=== PATIENT | female | born 1975 | race Two or more races ===

== ENCOUNTER 2024-03-06 05:45 | Inpatient (IN) | payer OTHER ==
[~2024-03-06] VITALS: Ht 165.1 cm; Wt 73.6 kg
[2024-03-06] VITALS (10 sets, daily range): BP systolic 114–131; BP diastolic 47–66; PULSE 69–120; RESP 16–20; TEMP 97.8–98.2; O2SAT 97–100
--- NOTE | 2024-03-06 06:51 | ED.PDOC ---
History of present illness HPI Comments 48 y.o female with PMH of DM, presents to the ED for an evaluation of hyperglycemia. Patient reports she went to [place] 3-4 days ago, developed nausea, vomiting and lower extremity swelling in which she went to the ED there and was told her blood glucose levels and potassium levels were abnormal. Patient was suggested to come into the ED once she got back home, landed last night and came directly here. Patient has been checking her glucose levels and additionally retested here with levels reading in the 200's. Patient complains of increased thirst with dry mouth but states nausea and vomiting has subsided. No chest pain, fever, chills, sweats, or SOB reported. Patient is on Metformin and Insulin use and has been compliant with medication. 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 HAND History: No Pertinent TIRE TRIMMER HAND History Family History Family History: Reviewed,noncontributory to illness Social History Smoker: Non-Smoker Alcohol: Denies ETOH Use Drugs: Denies Drug Use Lives In: Home Constitutional: denies: chills, diaphoresis, fatigue, fever, malaise, sweats, weakness, others EENTM: denies: blurred vision, double vision, ear bleeding, ear discharge, ear drainage, ear pain, ear ringing, eye pain, eye redness, hearing loss, mouth pain, mouth swelling, nasal discharge, nose bleeding, nose congestion, nose pain, photophobia, tearing, throat pain, throat swelling, voice changes, others Respiratory: denies: cough, hemoptysis, orthopnea, SOB at rest, shortness of breath, SOB with excertion, stridor, wheezing, others Cardiovascular: denies: chest pain, dizzy spells, diaphoresis, Dyspnea on exertion, edema, irregular heart beat, left arm pain, lightheadedness, palpitations, PND, syncope, others Gastrointestinal: denies: abdomen distended, abdominal pain, blood streaked bowels, constipated, diarrhea, dysphagia, difficulty swallowing, hematemesis, melena, nausea, poor appetite, poor fluid intake, rectal bleeding, rectal pain, vomiting, others Genitourinary: denies: abnormal vagina bleeding, burning, dyspareunia, dysuria, flank pain, frequency, hematuria, incontinence, pain, , vagina discharge, urgency, others Neurological: denies: dizziness, fainting, headache, left sided numbness, left sided weakness, numbness, paresthesia, pre-existing deficit, right sided numbness, right sided weakness, seizure, speech problems, tingling, tremors, weakness, others Musculoskeletal: denies: back pain, gout, joint pain, joint swelling, muscle pain, muscle stiffness, neck pain, others Integumetry: denies: bruises, change in color, change in hair/nails, dryness, laceration, lesions, lumps, rash, wounds, others Allergic/Immunocompromised: denies: Difficulty Healing, Frequent Infections, Hives, Itching, others Hematologic/Lymphatic: denies: anemia, blood clots, easy bleeding, easy bruising, swollen glands, others Endocrine: reports: excessive thirst, others (dry mouth); denies: excessive hunger, excessive sweating, excessive urination, flushing, intolerance to cold, intolerance to heat, unexplained weight gain, unexplained weight loss Psychiatric: denies: anxiety, bipolar disorder, depression, hopeless, panic disorder, schizophrenia, sleepless, suicidal, others All Other Systems: Reviewed and Negative Physical Exam General Appearance: Moderate Distress HEENT: Normal ENT Inspection, Pharynx Normal, TMs Normal Neck: Full Range of Motion, Non-Tender, Normal, Normal Inspection Respiratory: Chest Non-Tender, Lungs Clear, No Accessory Muscle Use, No Respiratory Distress, Normal Breath Sounds Cardiovascular: No Edema, No JVD, No Murmur, No Gallop, Normal Peripheral Pulses, Regular Rate/Rhythm Breast Exam: Deferred Gastrointestinal: No Organomegaly, Non Tender, No Pulsatile Mass, Normal Bowel Sounds, Soft Genitalia: Deferred Pelvic: Deferred Rectal: Deferred Extremities: No calf tenderness, Normal capillary refill, Normal inspection, Normal range of motion, Non-tender, No pedal edema Musculoskeletal : Apperance: Normal Neurologic: Alert, 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 Was a procedure done?: No Differential Diagnosis (DM) Differential Diagnosis: Dehydration, Diabetic Coma, DKA, Electrolyte Abnormality, Hyperglycemia, Hyperosmolar State X-Ray, Labs, Meds, VS Vital Signs Date Time Temp Pulse Resp B/P (MAP) Pulse Ox O2 Delivery O2 Flow Rate FiO2 03/06/24 07:45 16 99 Room Air* 0 21 03/06/24 07:37 98.9 113 16 131/66 (87) 99 98.9 03/06/24 07:37 113 16 99 Room Air 03/06/24 05:57 98.1 120 18 127/74 (91) 99 Lab Test 03/06/24 07:35 03/06/24 07:20 Range/Units Urine Color Colorless Yellow Urine Clarity Clear Clear Urine pH 5.0 5.0-9.0 Urine Specific [place] 1.017 1.001-1.035 Urine Protein Negative Negative Urine Ketones 4+ H Negative Urine Blood 2+ H Negative /uL Urine Nitrite Negative Negative Urine Bilirubin Negative Negative Urine Urobilinogen Normal Negative mg/dL Urine Leukocyte Esterase Negative Negative /uL Urine RBC 1 0 - 4 /hpf Urine WBC 4 0 - 5 /hpf Urine Squamous Epithelial Cells Few <5 /hpf Urine Bacteria None seen None Seen /hpf Urine Mucus Few None Seen Urine Glucose 4+ H Normal mg/dL White Blood Count 7.2 4.4-10.8 10^3/uL Red Blood Count 4.38 4.0-5.20 10^6/uL Hemoglobin 13.1 12.2-16.2 g/dL Hematocrit 40.7 36.0-46.0 % Mean Corpuscular Volume 93.0 80.0-100.0 fL Mean Corpuscular Hemoglobin 29.8 28.0-32.0 pg Mean Corpuscular Hemoglobin Concent 32.1 32.0-36.0 g/dL Red Cell Distribution Width 16.1 H 11.8-14.3 % Platelet Count 220 140-450 10^3/uL Mean Platelet Volume 8.5 6.9-10.8 fL Neutrophils (%) (Auto) 72.2 37.0-80.0 % Lymphocytes (%) (Auto) 17.9 10.0-50.0 % Monocytes (%) (Auto) 8.3 0.0-12.0 % Eosinophils (%) (Auto) 1.0 0.0-7.0 % Basophils (%) (Auto) 0.6 0.0-2.0 % Neutrophils # (Auto) 5.2 1.6-8.6 10 ^3/uL Lymphocytes # (Auto) 1.3 0.4-5.4 10 ^3/uL Monocytes # (Auto) 0.6 0-1.3 10 ^3/uL Eosinophils # (Auto) 0.1 0-0.8 10 ^3/uL Basophils # (Auto) 0 0-0.2 10 ^3/uL Nucleated Red Blood Cells 0.1 % Sodium Level 137 136-145 mmol/L Potassium Level 4.8 3.5-5.1 mmol/L Chloride Level 104 98-107 mmol/L Carbon Dioxide Level 11 L 20-31 mmol/L Anion Gap 22 H 5-15 Blood Urea Nitrogen 14 9-23 mg/dL Creatinine 0.93 0.550-1.02 mg/dL Glomerular Filtration Rate Calc 75 >90 mL/min BUN/Creatinine Ratio 15.1 10.0-20.0 Serum Glucose 239 H 74-106 mg/dL Calcium Level 9.8 8.7-10.4 mg/dL Current Medications Medications (Trade) Dose Ordered Sig/Lacie Route Start Time Stop Time Status Last Admin Sodium Chloride 1,000 ml @ 1,000 mls/hr Q1H ONCE IV 03/06/24 07:15 03/06/24 08:14 DC 03/06/24 07:33 Ondansetron HCl (Zofran) 4 mg ONCE ONCE IV 03/06/24 07:15 03/06/24 07:16 DC 03/06/24 07:33 Patient alert. Anxious. Vitals stable. Answering all questions. Abdomen is soft nontender. Establish intravenous access. Was given fluids. Saturation pristine. Blood sugar causing her symptoms. Possible gastroenteritis while she was away. Recent travel to [place]. No shortness a breath. No leg swelling. No calf tenderness. Reviewed her history. Explained to the patient. Time of 1ST Reevaluation: 06:46 Reevaluation 1ST: Improved Patient Education/Counseling: Diagnosis, Treatment, Prognosis Family Education/Counseling: No Family Present Additional Information The following tests were ordered, and results were reviewed by me: LABS Additional Information was gathered from interviewing the following independent historians: None I reviewed and agreed with the following test results read by other provider: None I discussed treatment and results with medical personnel Departure 1 Departure Time of Disposition: 07:21 Impression: Primary Impression: Uncontrolled diabetes mellitus Qualified Codes: E13.65 - Other specified diabetes mellitus with hyperglycemia Disposition: ADMITTED INPATIENT Admit to: Med Surg Condition: Guarded Critical Care Note Critical Care Time?: Yes (45 min-critical care time only) Stability Stability form required: No I personally scribed for ISRAEL MADDEN MD ([email or web address]) on 03/06/24 at 06:51. Electronically submitted by Delisa Peña ([facility]). I personally scribed for ISRAEL MADDEN MD ([email or web address]) on 03/06/24 at 07:02. Electronically submitted by Delisa Peña ([facility]). ISRAEL MADDEN MD Mar 06, 2024 06:51
[2024-03-06] MEDS: SODIUM CHLORIDE 0.9% 1,000 ML IV ONE (07:33)
[2024-03-06] MEDS: ONDANSETRON HCL 4 MG/2 ML VIAL IV ONE (07:33)
[2024-03-06 07:41] LABS: Basophils # (auto) 0 10 ^3/uL (0-0.2); Basophils % (auto) 0.6 % (0.0-2.0); Eosinophils # (auto) 0.1 10 ^3/uL (0-0.8); Hematocrit 40.7 % (36.0-46.0); Hemoglobin 13.1 g/dL (12.2-16.2); Lymphocytes # (auto) 1.3 10 ^3/uL (0.4-5.4); Lymphocytes % (auto) 17.9 % (10.0-50.0); Mean Corpuscular Hemoglobin 29.8 pg (28.0-32.0); Mean Corpuscular Hgb Conc. 32.1 g/dL (32.0-36.0); Monocytes # (auto) 0.6 10 ^3/uL (0-1.3); Monocytes % (auto) 8.3 % (0.0-12.0); Neutrophils # (auto) 5.2 10 ^3/uL (1.6-8.6); Neutrophils % (auto) 72.2 % (37.0-80.0); Nucleated Red Blood Cells % 0.1 %; Platelet Count (auto) 220 10^3/uL (140-450); Red Blood Cells 4.38 10^6/uL (4.0-5.20); Red Cell Distribution Width 16.1 % (11.8-14.3); White Blood Cell 7.2 10^3/uL (4.4-10.8)
[2024-03-06 07:49] LABS: Chloride 104 mmol/L (98-107); Potassium 4.8 mmol/L (3.5-5.1); Sodium 137 mmol/L (136-145)
[2024-03-06 07:50] LABS: Anion Gap 22 (5-15)
[2024-03-06 07:51] LABS: Calcium 9.8 mg/dL (8.7-10.4)
[2024-03-06 07:56] LABS: BUN/Creatinine Ratio 15.1 (10.0-20.0); Blood Urea Nitrogen 14 mg/dL (9-23)
[2024-03-06 08:08] LABS: Urine Bacteria None Seen /hpf (None Seen)
[2024-03-06 08:15] LABS: Carbon Dioxide 11 mmol/L (20-31); Glucose 239 mg/dL (74-106)
[2024-03-06 08:22] LABS: Urine Blood 2+ /uL (Negative); Urine Clarity Clear (Clear); Urine Color Colorless (Yellow); Urine Mucus FEW (None Seen); Urine Protein, UAD Negative (Negative); Urine Specific Gravity 1.017 (1.001-1.035); Urine Squamous Epithelial Cell FEW /hpf (<5); Urine Urobilinogen Normal (Negative); Urine WBC 4 /hpf (0 - 5)
[2024-03-06] MEDS ORDERED: HYDROcodone-ACET 5/325MG TAB PO PRN (10:45)
[2024-03-06] MEDS ORDERED: ONDANSETRON HCL 4 MG/2 ML VIAL IV PRN (10:45)
[2024-03-06] MEDS ORDERED: ACETAMINOPHEN 325 MG TAB PO PRN (10:45)
[2024-03-06] MEDS ORDERED: DEXTROSE (50%) 50ML SYRG IV PRN (10:45)
[2024-03-06] MEDS ORDERED: ROSU10TA64 PO (11:07)
[2024-03-06] MEDS ORDERED: FERR325T20 PO (11:07)
--- NOTE | 2024-03-06 11:11 | DVHHP2 ---
History of Present Illness Reason for Visit: Elevated blood sugar, nausea, vomiting, increased thirst, dry mouth, s History of Present Illness Cristal Ramirez is a 48-year-old female with past medical history of diabetes and asthma who presents to the ED for increased blood sugar, increased thirst, dry mouth, nausea, vomiting, and shortness of breath. Patient states that she was in [place] for 8 days and just got back last night. She reported that she was in the hospital there for 3 days and treated for her hyperglycemia. Hospital's name is [facility]. Patient does not know exactly what medications were given to her other than insulin. Patient has a CGM and when she just checked it her blood sugar shows 242. Patient reports that she is here for evaluation. She also reports that the nausea has not gotten better. She denies any fevers, chills, chest pain, abdominal pain, diarrhea, lightheadedness, and dizziness. Patient also reports that she just finished her menses cycle. Past 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: Family History: None Smoke: No ALCOHOL: none Drugs: None Lives: with Family Domestic Violence: Neg Review of Systems Constitutional: No: Fever, Chills, Sweats, Weakness, Malaise, Other Eyes: No: Pain, Vision change, Conjunctivae inflammation, Eyelid inflammation, Other, Redness ENT: Other (Increased thirst and dry mouth); No: Ear pain, Ear discharge, Nose pain, Nose discharge, Nose congestion, Mouth pain, Mouth swelling, Throat pain, Throat swelling Respiratory: Shortness of breath; No: Cough, Dry, SOB with excertion, Wheezing, Hemoptysis, Pleuritic Pain, Sputum, Wheezing, Other Cardiovascular: No: Chest Pain, Palpitations, Orthopnea, Paroxysmal Noc. Dyspnea, Edema, Lt Headedness, Other Gastrointestinal: Nausea, Vomiting; No: Abdominal Pain, Diarrhea, Constipation, Melena, Hematochezia, Other Genitourinary: No Dysuria, No Frequency, No Incontinence, No Hematuria, No Retention, No Other Musculoskeletal: No: other, neck pain, shoulder pain, arm pain, back pain, hand pain, leg pain, foot pain Skin: No: Rash, Lesions, Jaundice, Bruising, Other Neurological: No: Weakness, Numbness, Incoordination, Change in speech, Confusion, Seizures, Other Allergies: Coded Allergies: NO KNOWN ALLERGIES (Unverified , 03/06/24) Medications Current Medications Medications Dose Ordered Sig/Lacie Route Start Time Stop Time Status Last Admin Dose Admin Diagnostic Test (Pha) 1 strip ACHS 03/06/24 11:30 UNV Insulin Human Regular ACHS SC 03/06/24 11:30 UNV Dextrose 50 ml UD PRN IV 03/06/24 10:45 UNV Acetaminophen/ Hydrocodone Bitart 1 tab Q4HP PRN PO 03/06/24 10:45 UNV Ondansetron HCl 4 mg Q4HP PRN IV 03/06/24 10:45 UNV Acetaminophen 650 mg Q6HP PRN PO 03/06/24 10:45 UNV Exam Vital Signs Vital Signs Date Time Temp Pulse Resp B/P (MAP) Pulse Ox O2 Delivery O2 Flow Rate FiO2 03/06/24 07:45 16 99 Room Air* 0 21 03/06/24 07:37 98.9 113 131/66 (87) 98.9 General Appearance: Alert, Oriented X3, Cooperative, No acute distress HEENT: Atraumatic, PERRLA, EOMI, Mucous membr. moist/pink Respiratory: Clear to auscultation, Normal air movement Cardiovascular: Normal S1, Normal S2, No murmurs Abdominal: Normal bowel sounds, Soft, No tenderness, No hepatospenomegaly, No masses Extremities: No clubbing, No cyanosis, No edema, Normal pulses, No tenderness/swelling Skin: No rashes, No breakdown, No significant lesion Neuro: Normal gait, Normal speech, Strength at 5/5 X4 ext, Normal tone, Sensation intact Psych/Mental Status: Mental status NL, Mood NL Labs/Xrays Labs Test 03/06/24 07:35 03/06/24 07:20 Range/Units Urine Color Colorless Yellow Urine Clarity Clear Clear Urine pH 5.0 5.0-9.0 Urine Specific [place] 1.017 1.001-1.035 Urine Protein Negative Negative Urine Ketones 4+ H Negative Urine Blood 2+ H Negative /uL Urine Nitrite Negative Negative Urine Bilirubin Negative Negative Urine Urobilinogen Normal Negative mg/dL Urine Leukocyte Esterase Negative Negative /uL Urine RBC 1 0 - 4 /hpf Urine WBC 4 0 - 5 /hpf Urine Squamous Epithelial Cells Few <5 /hpf Urine Bacteria None seen None Seen /hpf Urine Mucus Few None Seen Urine Glucose 4+ H Normal mg/dL White Blood Count 7.2 4.4-10.8 10^3/uL Red Blood Count 4.38 4.0-5.20 10^6/uL Hemoglobin 13.1 12.2-16.2 g/dL Hematocrit 40.7 36.0-46.0 % Mean Corpuscular Volume 93.0 80.0-100.0 fL Mean Corpuscular Hemoglobin 29.8 28.0-32.0 pg Mean Corpuscular Hemoglobin Concent 32.1 32.0-36.0 g/dL Red Cell Distribution Width 16.1 H 11.8-14.3 % Platelet Count 220 140-450 10^3/uL Mean Platelet Volume 8.5 6.9-10.8 fL Neutrophils (%) (Auto) 72.2 37.0-80.0 % Lymphocytes (%) (Auto) 17.9 10.0-50.0 % Monocytes (%) (Auto) 8.3 0.0-12.0 % Eosinophils (%) (Auto) 1.0 0.0-7.0 % Basophils (%) (Auto) 0.6 0.0-2.0 % Neutrophils # (Auto) 5.2 1.6-8.6 10 ^3/uL Lymphocytes # (Auto) 1.3 0.4-5.4 10 ^3/uL Monocytes # (Auto) 0.6 0-1.3 10 ^3/uL Eosinophils # (Auto) 0.1 0-0.8 10 ^3/uL Basophils # (Auto) 0 0-0.2 10 ^3/uL Nucleated Red Blood Cells 0.1 % Sodium Level 137 136-145 mmol/L Potassium Level 4.8 3.5-5.1 mmol/L Chloride Level 104 98-107 mmol/L Carbon Dioxide Level 11 L 20-31 mmol/L Anion Gap 22 H 5-15 Blood Urea Nitrogen 14 9-23 mg/dL Creatinine 0.93 0.550-1.02 mg/dL Glomerular Filtration Rate Calc 75 >90 mL/min BUN/Creatinine Ratio 15.1 10.0-20.0 Serum Glucose 239 H 74-106 mg/dL Calcium Level 9.8 8.7-10.4 mg/dL Assessment/Plan Assessment/Plan Assessment/Plan: Acute hyperglycemia Ketonuria Glucosuria UA Antiemetics NS given in ER Anion gap 22 Hemoglobin A1c ISS and Accu-Cheks Chest x-ray EKG Labs A.m. labs Chronic asthma Respiratory treatments p.r.n. DVT/PPX diet HL DVT prophylaxis not indicated patient ambulating PUD prophylaxis not indicated no history of GERD or GI bleed Home medications reconciled Discussed plan of care with patient and nurse Admit to [facility] surge Plan discussed with: Patient My Orders Orders - MARLIN HENAO Procedure Category Date Status Time Hemoglobin A1c LAB 03/06/24 Logged 10:33 Glucose Blood PHA 03/06/24 Logged (Accu-Chek Comfort 11:30 Insulin R (Human) PHA 03/06/24 Logged (Insulin R) 11:30 Dextrose 50% Syringe PHA 03/06/24 Logged 10:45 Admit ADMIT 03/06/24 Transmitted 10:33 Allergies URBAN 03/06/24 In Process 10:33 Code Status CODE 03/06/24 Transmitted 10:33 Hydrocodone-Acet PHA 03/06/24 Logged 5/325mg Tab ([place] 10:45 Ondansetron Hcl PHA 03/06/24 Logged (Zofran) 10:45 Complete Blood Count LAB 03/07/24 Verified 04:00 Comprehensive LAB 03/07/24 Verified Metabolic Panel 04:00 Cardiac DIET 03/06/24 Transmitted Diet-2gna,Lofat,Lochol Lunch Acetaminophen Tablet PHA 03/06/24 Logged (Tylenol Tablet) 10:45 Date of Service: Mar 06, 2024 Billing Provider: MARLIN HENAO Common Visit Codes: [id number] INP/OBS CARE (HIGH) MARLIN HENAO Mar 06, 2024 11:11
--- NOTE | 2024-03-06 11:30 | DVH ---
CHEST RADIOGRAPH Indication: sob Technique: Single frontal view of the chest was obtained COMPARISON: None FINDINGS: Lines and Tubes: None Lungs: Clear Pleura: No effusion. No pneumothorax. Cardiomediastinal contours: Unremarkable Bones: Unremarkable IMPRESSION: 1. No acute disease.
[2024-03-06] MEDS: ACCU-CHEK COMFORT CURVE STRIP VI SCH (12:02)
[2024-03-06] MEDS: InsuLIN REG 1unit/0.01ml Soln (100units/ml) SC SCH (12:10)
--- NOTE | 2024-03-06 12:44 | ECG ---
[facility] Test Date: 2024-03-06 Test Time: 11:32:03 Pat Name: BERHANE BARRETT Department: ER Room: [address] [place] [address] A Gender: F Program Associate: ANDREA : 1975 Requested By: MARLIN HENAO Order Number: [id number] Reading MD: Measurements Intervals [place] Rate: 122 P: 75 NC: 153 QRS: 87 QRSD: 91 T: -19 QT: 318 QTc: 453 Interpretive Statements Sinus tachycardia Borderline T abnormalities, inferior leads Please click the below link to view image of tracing.
[2024-03-06 16:02] LABS: COVID19 ANTIGEN SOFIA FIA NEGATIVE (NEGATIVE); Rapid Influenza A Negative (Negative); Rapid Influenza B Negative (Negative)
[2024-03-06] MEDS: ALBUTEROL SULF 2.5 MG/0.5ML(0.5%) NEB SOLN NEB PRN (21:27)
[2024-03-06] MEDS: IPRATROPIUM BROM 0.5 MG/2.5ML INH SOL NEB PRN (21:27)
[2024-03-07] VITALS (11 sets, daily range): BP systolic 110–140; BP diastolic 61–82; PULSE 68–138; RESP 14–27; TEMP 97.6–98.9; O2SAT 97–100
[2024-03-07 05:46] LABS: Basophils # (auto) 0 10 ^3/uL (0-0.2); Basophils % (auto) 0.5 % (0.0-2.0); Eosinophils # (auto) 0 10 ^3/uL (0-0.8); Eosinophils % (auto) 0.4 % (0.0-7.0); Hemoglobin 12.1 g/dL (12.2-16.2); Lymphocytes # (auto) 1.2 10 ^3/uL (0.4-5.4); Lymphocytes % (auto) 14.6 % (10.0-50.0); Mean Corpuscular Hgb Conc. 32.6 g/dL (32.0-36.0); Neutrophils # (auto) 5.9 10 ^3/uL (1.6-8.6); Neutrophils % (auto) 72.5 % (37.0-80.0); Nucleated Red Blood Cells % 0.1 %; Platelet Count (auto) 212 10^3/uL (140-450); Red Blood Cells 4.02 10^6/uL (4.0-5.20); Red Cell Distribution Width 16.2 % (11.8-14.3); White Blood Cell 8.2 10^3/uL (4.4-10.8)
[2024-03-07 06:11] LABS: Alanine Aminotransferase 24 U/L (7-40); Alkaline Phosphatase 103 U/L (46-116); Anion Gap 19.00001 (5-15); Aspartate Aminotransferase 19 U/L (13-40); BUN/Creatinine Ratio 11.4 (10.0-20.0); Blood Urea Nitrogen 14 mg/dL (9-23); Calcium 9.3 mg/dL (8.7-10.4); Chloride 107 mmol/L (98-107); Potassium 4.5 mmol/L (3.5-5.1); Sodium 136 mmol/L (136-145)
[2024-03-07 06:12] LABS: Bilirubin, Total 0.4 mg/dL (0.2-1.0); Total Protein 6.8 g/dL (5.7-8.2)
[2024-03-07 06:31] LABS: Glucose 233 mg/dL (74-106)
[2024-03-07 06:33] LABS: Carbon Dioxide < 10 mmol/L (20-31)
[2024-03-07] MEDS ORDERED: DEXTROSE (50%) 50ML SYRG IV PRN ×2 (13:45→15:30)
--- NOTE | 2024-03-07 13:51 | DVHPN2 ---
Subjective 03/07-patient feeling back at baseline but labs show severe acidosis. We will continue to adjust insulin to optimize glucose and workup acidosis. Reviewed: H&P Changes from previous H/P or p: No Changes General: Per HPI Objective Vitals Vital Signs Date Time Temp Pulse Resp B/P (MAP) Pulse Ox O2 Delivery O2 Flow Rate FiO2 03/07/24 09:00 98.1 115 18 139/77 (97) 99 98.1 03/07/24 08:00 Room Air* 0 21 Intake/Output Intake and Output 03/07/24 07:00 Intake Total 1480 ml Output Total 4 ml Balance 1476 ml Intake Oral 480 ml IV Total 1000 ml Output Urine Total 4 ml Exam GEN: Healthy appearing, well-developed, NAD. HEENT: NC/AT; MMM. CV: RRR, no m/r/g. LUNGS: CTAB, no w/r/c. ABD: Soft, NT/ND, NBS, no masses or organomegaly. EXT: skin Warm, well perfused. no rashes. Trace pitting edema right more than left NEURO: Ambulating with no limitations. No focal deficits. Medications Current Medications Medications Dose Ordered Sig/Lacie Route Start Time Stop Time Status Last Admin Dose Admin Diagnostic Test (Pha) 1 strip ACHS 03/06/24 11:30 03/07/24 11:32 1 STRIP Insulin Human Regular ACHS SC 03/06/24 11:30 03/07/24 11:32 4 UNITS Dextrose 50 ml UD PRN IV 03/06/24 10:45 Acetaminophen/ Hydrocodone Bitart 1 tab Q4HP PRN PO 03/06/24 10:45 Ondansetron HCl 4 mg Q4HP PRN IV 03/06/24 10:45 Acetaminophen 650 mg Q6HP PRN PO 03/06/24 10:45 Albuterol 2.5 mg Q4HPRN PRN NEB 03/06/24 11:15 03/06/24 21:27 2.5 MG Ipratropium [place] 0.5 mg Q4HPRN PRN NEB 03/06/24 11:15 03/06/24 21:27 0.5 MG Diagnostic Test (Pha) 1 strip ACHS 03/07/24 17:00 UNV Insulin Human Regular HS SC 03/07/24 22:00 UNV Insulin Human Regular AC SC 03/07/24 17:00 UNV Dextrose 50 ml UD PRN IV 03/07/24 13:45 UNV Laboratory Results Laboratory Tests 03/07/24 04:32 Chemistry Test 03/07/24 04:32 Albumin 4.0 g/dL (3.2-4.8) Calcium Level 9.3 mg/dL (8.7-10.4) Total Protein 6.8 g/dL (5.7-8.2) LFT Test 03/07/24 04:32 Alanine Aminotransferase (ALT) 24 U/L (7-40) Alkaline Phosphatase 103 U/L (46-116) Aspartate Amino Transferase (AST) 19 U/L (13-40) Total Bilirubin 0.4 mg/dL (0.2-1.0) Urinalysis Test 03/06/24 07:35 Urine Color Colorless (Yellow) Urine Clarity Clear (Clear) Urine pH 5.0 (5.0-9.0) Urine Specific [place] 1.017 (1.001-1.035) Urine Protein Negative (Negative) Urine Ketones 4+ (Negative) H Urine Blood 2+ /uL (Negative) H Urine Nitrite Negative (Negative) Urine Bilirubin Negative (Negative) Urine Urobilinogen Normal mg/dL (Negative) Urine Leukocyte Esterase Negative /uL (Negative) Urine RBC 1 /hpf (0 - 4) Urine WBC 4 /hpf (0 - 5) Urine Squamous Epithelial Cells Few /hpf (<5) Urine Bacteria None seen /hpf (None Seen) Urine Mucus Few (None Seen) Urine Glucose 4+ mg/dL (Normal) H Labs and/or images reviewed: Labs reviewed by me, Image(s) reviewed by me Assessment/Plan Assessment/Plan 03/07-patient feeling back at baseline but labs show severe acidosis. We will continue to adjust insulin to optimize glucose and workup acidosis. Euglycemic DKA Diabetes with Hyperglycemia, admit dx wrong Acidosis severe Anion gap metabolic acidosis --patient recently returning from [place], unclear of dietary compliance. Was admitted to [facility] for DKA. Discharge recently and returned to [facility]. - lactic acid less than 2, beta hydroxy very high - this is euglycemic DKA (as patient is on farxiga SGLT2i) -dka protocol. - ivf per dka protocol. - NPO -patient on home meds with metformin, pioglitazone, Farxiga - pioglitazone has too many side effects we will have him DC at discharge and PCP follow up. still have to stop farxiga too as patient now had euglycemic dka. Diet npo DVT prophylaxis patient ambulating GI prophylaxis patient tolerating diet Med surge Full code critical care time 35min Plan discussed with: Patient My Orders Orders - JOLLY SOUZA MD Procedure Category Date Status Time Beta-Hydroxybutyrate LAB 03/07/24 In Process 10:54 Cardiac DIET 03/07/24 Transmitted Diet-2gna,Lofat,Lochol Dinner Glucose Blood PHA 03/07/24 Logged (Accu-Chek Comfort 17:00 Insulin R (Human) PHA 03/07/24 Logged (Insulin R) 22:00 Insulin R (Human) PHA 03/07/24 Logged (Insulin R) 17:00 Dextrose 50% Syringe PHA 03/07/24 Logged 13:45 Lactated Ringer's PHA 03/07/24 Logged 13:45 Basic Metabolic Panel LAB 03/07/24 Logged 13:42 Date of Service: Mar 07, 2024 Billing Provider: JOLLY SOUZA MD Common Visit Codes: [id number] CARE-EACH +30MIN JOLLY SOUZA MD Mar 07, 2024 13:51
[2024-03-07 14:29] LABS: Potassium 4.4 mmol/L (3.5-5.1); Sodium 136 mmol/L (136-145)
[2024-03-07 14:30] LABS: Anion Gap 17.00001 (5-15); Calcium 9.3 mg/dL (8.7-10.4)
[2024-03-07 14:35] LABS: BUN/Creatinine Ratio 9.4 (10.0-20.0); Blood Urea Nitrogen 12 mg/dL (9-23)
[2024-03-07 14:36] LABS: Carbon Dioxide < 10 mmol/L (20-31); Chloride 109 mmol/L (98-107); Glucose 221 mg/dL (74-106)
[2024-03-07 15:37] LABS: Base Excess -15.6 mmol/L (-2.0-3.0)
[2024-03-07] MEDS: LACTATED RINGER'S 1,000 ML IV ONE ×2 (15:45→18:30)
[2024-03-07 16:22] LABS: Magnesium 2.2 mg/dL (1.6-2.6)
[2024-03-07 16:26] LABS: Phosphorus 1.7 mg/dL (2.4-5.1)
[2024-03-07] MEDS: SODIUM CHLORIDE 0.9% 1,000 ML IV SCH ×2 (16:51→19:30)
[2024-03-07] MEDS: ACCU-CHEK COMFORT CURVE STRIP VI SCH ×2 (16:54→17:00)
[2024-03-07] MEDS: InsuLIN REG 1unit/0.01ml Soln (100units/ml) SC SCH ×2 (17:00→22:00)
[2024-03-07] MEDS: D5W/SOD CHL 0.45% 1,000 ML IV SCH (17:27)
[2024-03-07] MEDS: INSULIN DRIP 100 UNIT/100ML 100 ML IV SCH (17:27)
[2024-03-07 20:18] LABS: Alanine Aminotransferase 20 U/L (7-40); Albumin 3.8 g/dL (3.2-4.8); Alkaline Phosphatase 92 U/L (46-116); Anion Gap 17.00001 (5-15); Aspartate Aminotransferase 14 U/L (13-40); BUN/Creatinine Ratio 10.3 (10.0-20.0); Blood Urea Nitrogen 12 mg/dL (9-23); Calcium 8.8 mg/dL (8.7-10.4); Potassium 3.6 mmol/L (3.5-5.1); Sodium 138 mmol/L (136-145); Total Protein 6.6 g/dL (5.7-8.2)
[2024-03-07 20:22] LABS: Bilirubin, Total 0.2 mg/dL (0.2-1.0); Chloride 111 mmol/L (98-107); Glucose 211 mg/dL (74-106)
[2024-03-07 20:23] LABS: Carbon Dioxide < 10 mmol/L (20-31)
[2024-03-07] MEDS ORDERED: SODIUM CHLORIDE 0.9% 1,000 ML IV SCH (21:30)
[2024-03-07 23:03] LABS: Alanine Aminotransferase 18 U/L (7-40); Albumin 3.5 g/dL (3.2-4.8); Alkaline Phosphatase 82 U/L (46-116); Anion Gap 10 (5-15); Bilirubin, Total 0.4 mg/dL (0.2-1.0); Sodium 139 mmol/L (136-145); Total Protein 5.9 g/dL (5.7-8.2)
[2024-03-07 23:05] LABS: Aspartate Aminotransferase 12 U/L (13-40); Calcium 8.1 mg/dL (8.7-10.4); Carbon Dioxide 14 mmol/L (20-31); Chloride 115 mmol/L (98-107); Glucose 193 mg/dL (74-106); Potassium 3.3 mmol/L (3.5-5.1)
[2024-03-07 23:16] LABS: BUN/Creatinine Ratio 9.3 (10.0-20.0); Blood Urea Nitrogen 9 mg/dL (9-23)
[2024-03-08] VITALS (19 sets, daily range): BP systolic 111–143; BP diastolic 59–76; PULSE 26–113; RESP 16–18; TEMP 98.2–98.9; O2SAT 98–100
[2024-03-08] MEDS ORDERED: DEXTROSE (50%) 50ML SYRG IV PRN (00:45)
[2024-03-08 03:57] LABS: Alanine Aminotransferase 18 U/L (7-40); Albumin 3.5 g/dL (3.2-4.8); Alkaline Phosphatase 86 U/L (46-116); Anion Gap 17.00001 (5-15); Aspartate Aminotransferase 13 U/L (13-40); BUN/Creatinine Ratio 8.7 (10.0-20.0); Bilirubin, Total 0.3 mg/dL (0.2-1.0); Potassium 3.7 mmol/L (3.5-5.1); Sodium 137 mmol/L (136-145)
[2024-03-08 03:58] LABS: Total Protein 6.1 g/dL (5.7-8.2)
[2024-03-08] MEDS: ACCU-CHEK COMFORT CURVE STRIP VI SCH ×3 (04:07→22:01)
[2024-03-08] MEDS: InsuLIN REG 1unit/0.01ml Soln (100units/ml) SC SCH ×3 (04:07→22:03)
[2024-03-08 04:11] LABS: Basophils # (auto) 0 10 ^3/uL (0-0.2); Basophils % (auto) 0.4 % (0.0-2.0); Eosinophils # (auto) 0.3 10 ^3/uL (0-0.8); Eosinophils % (auto) 3.2 % (0.0-7.0); Hematocrit 33.8 % (36.0-46.0); Lymphocytes # (auto) 0.7 10 ^3/uL (0.4-5.4); Mean Corpuscular Hemoglobin 29.9 pg (28.0-32.0); Mean Corpuscular Hgb Conc. 32.5 g/dL (32.0-36.0); Monocytes % (auto) 12.3 % (0.0-12.0); Neutrophils # (auto) 6.2 10 ^3/uL (1.6-8.6); Neutrophils % (auto) 75.1 % (37.0-80.0); Platelet Count (auto) 203 10^3/uL (140-450); Red Blood Cells 3.68 10^6/uL (4.0-5.20); White Blood Cell 8.3 10^3/uL (4.4-10.8)
[2024-03-08 04:38] LABS: Blood Urea Nitrogen 9 mg/dL (9-23); Calcium 8.4 mg/dL (8.7-10.4); Carbon Dioxide < 10 mmol/L (20-31); Chloride 110 mmol/L (98-107); Glucose 266 mg/dL (74-106)
[2024-03-08] MEDS: SODIUM CHLORIDE 0.9% 1,000 ML IV ONE (05:37)
[2024-03-08 10:12] LABS: Potassium 3.6 mmol/L (3.5-5.1); Sodium 138 mmol/L (136-145)
[2024-03-08 10:13] LABS: Anion Gap 13 (5-15)
[2024-03-08 10:18] LABS: BUN/Creatinine Ratio 8.8 (10.0-20.0)
[2024-03-08 10:35] LABS: Blood Urea Nitrogen 8 mg/dL (9-23); Calcium 8.5 mg/dL (8.7-10.4); Carbon Dioxide 11 mmol/L (20-31); Chloride 114 mmol/L (98-107); Glucose 161 mg/dL (74-106)
[2024-03-08] MEDS: LACTATED RINGER'S 1,000 ML IV SCH (12:49)
[2024-03-08] MEDS: INSULIN LANTUS (GLARGINE) 1 /0.01ml (100units/ml) SC ONE (13:00)
[2024-03-08 15:35] LABS: Sodium 139 mmol/L (136-145)
[2024-03-08 15:36] LABS: Anion Gap 14 (5-15)
[2024-03-08 15:41] LABS: BUN/Creatinine Ratio 9.6 (10.0-20.0); Blood Urea Nitrogen 9 mg/dL (9-23)
[2024-03-08 15:49] LABS: Calcium 8.4 mg/dL (8.7-10.4); Carbon Dioxide 14 mmol/L (20-31); Chloride 111 mmol/L (98-107); Glucose 208 mg/dL (74-106); Potassium 3.4 mmol/L (3.5-5.1)
--- NOTE | 2024-03-08 21:57 | DVHPN2 ---
Subjective - 03/08- patient off of DKA protocol last night around 1-2am. Diet started this morning. This a.m. bicarb still low, although gap is closed. Given fluids and on repeat BNP improving. Continue downgrade to tele. Patient feeling improved. Tolerating diet. Prandial and basal insulin started, we will continue to titrate we will plan to discharge with insulin tomorrow. - 03/07-patient feeling back at baseline but labs show severe acidosis. We will continue to adjust insulin to optimize glucose and workup acidosis. Reviewed: H&P Changes from previous H/P or p: No Changes General: Per HPI Objective Vitals Vital Signs Date Time Temp Pulse Resp B/P (MAP) Pulse Ox O2 Delivery O2 Flow Rate FiO2 03/08/24 21:00 98.3 88 18 143/73 (96) 98 98.3 03/08/24 11:08 Room Air 03/08/24 11:08 0 21 Intake/Output Intake and Output 03/08/24 07:00 Intake Total 4202 ml Output Total 5 ml Balance 4197 ml Intake Oral 640 ml IV Total 3562 ml Output Urine Total 5 ml Exam GEN: Healthy appearing, well-developed, NAD. HEENT: NC/AT; MMM. CV: RRR, no m/r/g. LUNGS: CTAB, no w/r/c. ABD: Soft, NT/ND, NBS, no masses or organomegaly. EXT: skin Warm, well perfused. no rashes. Trace pitting edema right more than left NEURO: Ambulating with no limitations. No focal deficits. Medications Current Medications Medications Dose Ordered Sig/Lacie Route Start Time Stop Time Status Last Admin Dose Admin Acetaminophen/ Hydrocodone Bitart 1 tab Q4HP PRN PO 03/06/24 10:45 Ondansetron HCl 4 mg Q4HP PRN IV 03/06/24 10:45 Acetaminophen 650 mg Q6HP PRN PO 03/06/24 10:45 Dextrose 50 ml UD PRN IV 03/08/24 00:45 Insulin Glargine 40 units QAM SC 03/09/24 07:00 Diagnostic Test (Pha) 1 strip ACHS 03/08/24 22:00 Insulin Human Regular ACHS SC 03/08/24 22:00 Laboratory Results Laboratory Tests 03/08/24 02:53 03/08/24 15:10 Chemistry Test 03/07/24 22:36 03/08/24 02:53 03/08/24 09:30 03/08/24 15:10 Albumin 3.5 g/dL (3.2-4.8) 3.5 g/dL (3.2-4.8) Calcium Level 8.1 mg/dL (8.7-10.4) L 8.4 mg/dL (8.7-10.4) L 8.5 mg/dL (8.7-10.4) L 8.4 mg/dL (8.7-10.4) L Total Protein 5.9 g/dL (5.7-8.2) 6.1 g/dL (5.7-8.2) LFT Test 03/07/24 22:36 03/08/24 02:53 Alanine Aminotransferase (ALT) 18 U/L (7-40) 18 U/L (7-40) Alkaline Phosphatase 82 U/L (46-116) 86 U/L (46-116) Aspartate Amino Transferase (AST) 12 U/L (13-40) L 13 U/L (13-40) Total Bilirubin 0.4 mg/dL (0.2-1.0) 0.3 mg/dL (0.2-1.0) Urinalysis Test 03/06/24 07:35 Urine Color Colorless (Yellow) Urine Clarity Clear (Clear) Urine pH 5.0 (5.0-9.0) Urine Specific [place] 1.017 (1.001-1.035) Urine Protein Negative (Negative) Urine Ketones 4+ (Negative) H Urine Blood 2+ /uL (Negative) H Urine Nitrite Negative (Negative) Urine Bilirubin Negative (Negative) Urine Urobilinogen Normal mg/dL (Negative) Urine Leukocyte Esterase Negative /uL (Negative) Urine RBC 1 /hpf (0 - 4) Urine WBC 4 /hpf (0 - 5) Urine Squamous Epithelial Cells Few /hpf (<5) Urine Bacteria None seen /hpf (None Seen) Urine Mucus Few (None Seen) Urine Glucose 4+ mg/dL (Normal) H Labs and/or images reviewed: Labs reviewed by me, Image(s) reviewed by me Assessment/Plan Assessment/Plan - 03/08 - patient off of DKA protocol last night around 1-2am. Diet started this morning. This a.m. bicarb still low, although gap is closed. Given fluids and on repeat BMP improving. Continue downgrade to tele. Patient feeling improved. Tolerating diet. Prandial and basal insulin started, we will continue to titrate we will plan to discharge with insulin tomorrow. Euglycemic DKA Diabetes with Hyperglycemia, admit dx wrong Acidosis severe Anion gap metabolic acidosis - patient recently returning from [place], unclear of dietary compliance. Was admitted to [facility] for DKA. Discharge recently and returned to [facility]. -on admit noting,: lactic acid less than 2, beta hydroxy very high, ABG with 7.28/19.6/103 on room air., - flu/COVID negative - UA with SG 1.017, ketones 4+, glucose 4+, no signs for infection. - this is euglycemic DKA (as patient is on farxiga SGLT2i) - 03/08 - of DKA protocol, gap closed bicarb improving with more fluids. -status post dka protocol. - continue basal bolus insulin with sliding scale - diabetic diet -patient on home meds with metformin, pioglitazone, Farxiga - pioglitazone has too many side effects we will have him DC at discharge and PCP follow up. still have to stop farxiga too as patient now had euglycemic dka. Diet carb consistent DVT prophylaxis Lovenox GI prophylaxis - Protonix IV daily Med surge Full code Plan discussed with: Patient My Orders Orders - JOLLY SOUZA MD Procedure Category Date Status Time Insulin Lantus PHA 03/09/24 In Process (Glargine) (Lantus) 07:00 Glucose Blood PHA 03/08/24 In Process (Accu-Chek Comfort 22:00 Insulin R (Human) PHA 03/08/24 In Process (Insulin R) 22:00 Date of Service: Mar 08, 2024 Billing Provider: JOLLY SOUZA MD Common Visit Codes: [id number] INP/OBS CARE(HIGH) JOLLY SOUZA MD Mar 08, 2024 21:57
[2024-03-09 01:00] VITALS: BP 129/78; PULSE 86; RESP 18; TEMP 98.2; O2SAT 98
[2024-03-09 05:00] VITALS: BP 122/70; PULSE 90; RESP 17; TEMP 98.2; O2SAT 98
[2024-03-09] MEDS: INSULIN LANTUS (GLARGINE) 1 /0.01ml (100units/ml) SC SCH (06:29)
[2024-03-09 07:34] LABS: Basophils # (auto) 0 10 ^3/uL (0-0.2); Basophils % (auto) 0.7 % (0.0-2.0); Eosinophils # (auto) 0.6 10 ^3/uL (0-0.8); Eosinophils % (auto) 9.6 % (0.0-7.0); Hematocrit 33.4 % (36.0-46.0); Hemoglobin 11.4 g/dL (12.2-16.2); Lymphocytes # (auto) 0.9 10 ^3/uL (0.4-5.4); Lymphocytes % (auto) 14.3 % (10.0-50.0); Mean Corpuscular Hemoglobin 29.6 pg (28.0-32.0); Mean Corpuscular Hgb Conc. 34.2 g/dL (32.0-36.0); Mean Corpuscular Volume 86.6 fL (80.0-100.0); Monocytes # (auto) 0.9 10 ^3/uL (0-1.3); Monocytes % (auto) 13.2 % (0.0-12.0); Neutrophils # (auto) 4.1 10 ^3/uL (1.6-8.6); Neutrophils % (auto) 62.2 % (37.0-80.0); Nucleated Red Blood Cells % 0.1 %; Platelet Count (auto) 208 10^3/uL (140-450); Red Blood Cells 3.86 10^6/uL (4.0-5.20); Red Cell Distribution Width 14.7 % (11.8-14.3); White Blood Cell 6.6 10^3/uL (4.4-10.8)
[2024-03-09 08:00] VITALS: PULSE 99; RESP 17; O2SAT 99
[2024-03-09 08:13] LABS: Alanine Aminotransferase 13 U/L (7-40); Albumin 3.5 g/dL (3.2-4.8); Alkaline Phosphatase 84 U/L (46-116); Anion Gap 11 (5-15); Aspartate Aminotransferase 14 U/L (13-40); BUN/Creatinine Ratio 12.3 (10.0-20.0); Bilirubin, Total 0.4 mg/dL (0.2-1.0); Calcium 8.7 mg/dL (8.7-10.4); Carbon Dioxide 22 mmol/L (20-31); Chloride 107 mmol/L (98-107); Glucose 97 mg/dL (74-106); Sodium 140 mmol/L (136-145)
[2024-03-09 08:14] LABS: Total Protein 6.1 g/dL (5.7-8.2)
[2024-03-09 08:22] LABS: Blood Urea Nitrogen 7 mg/dL (9-23); Potassium 2.6 mmol/L (3.5-5.1)
[2024-03-09 08:51] VITALS: BP 122/75; PULSE 85; RESP 18; TEMP 98.2; O2SAT 97
[2024-03-09 13:00] VITALS: BP 129/83; PULSE 100; RESP 17; TEMP 98; O2SAT 99
[2024-03-09] MEDS ORDERED: FERR325T20 PO (13:23)
[2024-03-09] MEDS ORDERED: INSU100I51 SC (13:23)
[2024-03-09] MEDS ORDERED: SITA25TA3 PO (13:23)
[2024-03-09] MEDS ORDERED: INSUINJ37 SC (13:23)
--- NOTE | 2024-03-09 13:27 | DVHDS2 ---
Discharge Summary Date of Admission Mar 06, 2024 at 10:33 Date of Discharge: Mar 09, 2024 Labs/Diagnostic Data: Laboratory Results Test 03/09/24 06:30 03/07/24 15:47 03/07/24 15:30 03/07/24 12:06 White Blood Count 6.6 10^3/uL (4.4-10.8) Red Blood Count 3.86 10^6/uL (4.0-5.20) Hemoglobin 11.4 g/dL (12.2-16.2) Hematocrit 33.4 % (36.0-46.0) Mean Corpuscular Volume 86.6 fL (80.0-100.0) Mean Corpuscular Hemoglobin 29.6 pg (28.0-32.0) Mean Corpuscular Hemoglobin Concent 34.2 g/dL (32.0-36.0) Red Cell Distribution Width 14.7 % (11.8-14.3) Platelet Count 208 10^3/uL (140-450) Mean Platelet Volume 7.9 fL (6.9-10.8) Neutrophils (%) (Auto) 62.2 % (37.0-80.0) Lymphocytes (%) (Auto) 14.3 % (10.0-50.0) Monocytes (%) (Auto) 13.2 % (0.0-12.0) Eosinophils (%) (Auto) 9.6 % (0.0-7.0) Basophils (%) (Auto) 0.7 % (0.0-2.0) Neutrophils # (Auto) 4.1 10 ^3/uL (1.6-8.6) Lymphocytes # (Auto) 0.9 10 ^3/uL (0.4-5.4) Monocytes # (Auto) 0.9 10 ^3/uL (0-1.3) Eosinophils # (Auto) 0.6 10 ^3/uL (0-0.8) Basophils # (Auto) 0 10 ^3/uL (0-0.2) Nucleated Red Blood Cells 0.1 % Sodium Level 140 mmol/L (136-145) Potassium Level 2.6 mmol/L (3.5-5.1) Chloride Level 107 mmol/L (98-107) Carbon Dioxide Level 22 mmol/L (20-31) Anion Gap 11 (5-15) Blood Urea Nitrogen 7 mg/dL (9-23) Creatinine 0.57 mg/dL (0.550-1.02) Glomerular Filtration Rate Calc 111 mL/min (>90) BUN/Creatinine Ratio 12.3 (10.0-20.0) Serum Glucose 97 mg/dL (74-106) Calcium Level 8.7 mg/dL (8.7-10.4) Total Bilirubin 0.4 mg/dL (0.2-1.0) Aspartate Amino Transferase (AST) 14 U/L (13-40) Alanine Aminotransferase (ALT) 13 U/L (7-40) Alkaline Phosphatase 84 U/L (46-116) Total Protein 6.1 g/dL (5.7-8.2) Albumin 3.5 g/dL (3.2-4.8) Serum Osmolality 299 mOsm/kg (278-298) Phosphorus Level 1.7 mg/dL (2.4-5.1) Magnesium Level 2.2 mg/dL (1.6-2.6) Beta-Hydroxybutyric Acid > 4.500 mmol/L (< 0.4) Blood Gas Specimen Type Arterial Blood Gas Sample Site Right radial Blood Gas Patient Temperature 37.0 Arterial Blood Date Drawn [id number] Arterial Blood pH 7.281 (7.350-7.450) Arterial Blood Partial Pressure CO2 19.6 mmHg (32.0-45.0) Arterial Blood Partial Pressure O2 103.3 mmHg (83.0-108.0) Arterial Blood HCO3 9.0 mmol/L (21.0-28.0) Arterial Blood Oxygen Saturation 96.8 % (94.0-98.0) Arterial Blood Base Excess -15.6 mmol/L (-2.0-3.0) Arterial Blood Oxyhemoglobin 96.5 % (94.0-98.0) Arterial Blood Carboxyhemoglobin 0.3 % (0.5-1.5) Arterial Blood Methemoglobin 0.0 % (0.0-1.5) Kevin Test Yes Blood Gas Total Hemoglobin 12.20 g/dL (12.0-16.0) Blood Gas Modality Room air FiO2 % 21.0 Blood Gas Critical Value Read Back Yes Blood Gas Notified Whom evi Arreaga Blood Gas Notified Time [id number] Blood Gas Notified By Dialysis Rn justin zerr Lactic Acid Level 0.7 mmol/L (0.4-2.0) Test 03/06/24 15:00 03/06/24 11:39 03/06/24 07:35 Influenza Type A Antigen Negative (Negative) Influenza Type B Antigen Negative (Negative) SARS-CoV-2 Antigen (Rapid) Negative (NEGATIVE) Hemoglobin A1c 8.6 % A1C (<5.7) Urine Color Colorless (Yellow) Urine Clarity Clear (Clear) Urine pH 5.0 (5.0-9.0) Urine Specific [place] 1.017 (1.001-1.035) Urine Protein Negative (Negative) Urine Ketones 4+ (Negative) Urine Blood 2+ /uL (Negative) Urine Nitrite Negative (Negative) Urine Bilirubin Negative (Negative) Urine Urobilinogen Normal mg/dL (Negative) Urine Leukocyte Esterase Negative /uL (Negative) Urine RBC 1 /hpf (0 - 4) Urine WBC 4 /hpf (0 - 5) Urine Squamous Epithelial Cells Few /hpf (<5) Urine Bacteria None seen /hpf (None Seen) Urine Mucus Few (None Seen) Urine Glucose 4+ mg/dL (Normal) Other Laboratory Tests 03/09/24 06:30 Brief Hx & Hospital Course: HPI: 48-year-old female with past medical history of diabetes and asthma who presents to the ED for increased blood sugar, increased thirst, dry mouth, nausea, vomiting, and shortness of breath. Patient states that she was in [place] for 8 days and just got back last night. She reported that she was in the hospital there for 3 days and treated for her hyperglycemia. Hospital's name is [facility]. Patient does not know exactly what medications were given to her other than insulin. Patient has a CGM and when she just checked it her blood sugar shows 242. Patient reports that she is here for evaluation. She also reports that the nausea has not gotten better. Patient recently returning from [place], unclear of dietary compliance. Was admitted to [facility] for DKA. Discharge recently and returned to [facility], on admit, lactic acid less than 2, beta hydroxy very high, ABG with 7.28/19.6/103 on room air., flu/COVID negative, UA with SG 1.017, ketones 4+, glucose 4+, no signs for infection. this is euglycemic DKA (as patient is on farxiga SGLT2i). AG closes in 6hrs after dka protocol onset. tolerating diet, started on achs insullin and low carb diet. insulin optimized. noting hypoglycemia with her home basal insulin level which is also adjusted. given she had hypoglycemia with home dose lantus and admitted x2 for dka in [place] and again here for euglycemic dka. diagnsis: euglycemia DKA due to SGLT2i; acidosis; AGMA; Acidosis severe; hypoglycemia; ketosis; diagnosis plan: - stop farxiga (had DKA), stop pioglitazone (too many side effects) - continue metformin - decreased lantus to 25u - start novolog pen, use as needed only, 3u if PRE-meal BG>200. - start januvia 25mg daily - diabetic/low carb diet - follow up with PCP to review discharge. - follow-up with endocrinology given admitted 2x in a month for recurrent DKA episodes. - continue other medications (iron, crestor). Visitation and planning required 35 minutes Condition at Discharge: Fair Final Diagnosis/Problems List euglycemia DKA due to SGLT2i; acidosis; AGMA; Acidosis severe; hypoglycemia; ketosis; Discharge Disposition: Home Discharge Instruct/Medications Diet: Consistent carbohydrate Activity: No Restrictions, As Tolerated Follow Up/Referral: PCP, endocrinology Medications: below Discharge Statement: "Patient was advised to return to the ER or call 911 if any headaches, dizziness, shortness of breath, chest pain, abdominal pain, bleeding, fevers, or worsening of medical condition. Patient was counseled about treatment plan, medications, possible side effects, patientverbalized understanding. All questions were answered to the best of my ability. This discharge took greater then 30 minutes in planning, reviewing documentation, counseling the patient, and discussing with other team members." ASSESSMENT ASSESSMENT Assessment euglycemia DKA due to SGLT2i; acidosis; AGMA; Acidosis severe; hypoglycemia; ketosis; Date of Service: Mar 09, 2024 Billing Provider: JOLLY SOUZA MD Common Visit Codes: [id number] DISCH DAY >30min JOLLY SOUZA MD Mar 09, 2024 13:27
[2024-03-09 14:28] VITALS: BP 120/78; PULSE 90; RESP 16; TEMP 36.7; O2SAT 97
== END 2024-03-09 15:55 | disposition home or self-care (01) | DRG 637 ==
LOC: ER 05:45 → OVERFLOW 10:33 → CENTRAL 15:53 → CATH ICU 03-07 18:14 → EAST 03-08 18:00
PROVIDERS: ATTEND Student in an Organized Health Care Education/Training Program
DX: E11.10 Type 2 diabetes mellitus with ketoacidosis without coma (principal); N17.0 Acute kidney failure with tubular necrosis; J45.909 Unspecified asthma, uncomplicated; Z20.822 Contact with and (suspected) exposure to COVID-19; Z79.4 Long term (current) use of insulin; Z79.84 Long term (current) use of oral hypoglycemic drugs
CPT/HCPCS: 36415; 36600; 71045; 80048; 80053; 81001; 82010; 82805; 82962; 83036; 83605; 83735; 83930; 84100; 85025; 87426; 87804; 93005; 94640; 99291; G0378; J1815; J2405

== ENCOUNTER 2024-05-02 09:10 | Emergency (ER) | payer OTHER ==
[~2024-05-02] VITALS: Ht 165.1 cm; Wt 67.3 kg
[~2024-05-02 09:10] MED LIST: FERR325T20 PO; INSU100I51 SC; INSUINJ37 SC; ROSU10TA64 PO; SITA25TA3 PO
[2024-05-02 09:37] VITALS: BP 146/83; PULSE 99; RESP 17; TEMP 98; O2SAT 98
--- NOTE | 2024-05-02 10:22 | ED.PDOC ---
Musculoskeletal HPI Comments 48-year-old female presented to the fast track complaining of pain to her left shoulder for the past three days and had the same history sometime ago went to the urgent care and received pain injection it helped Patient has history of diabetes and hypercholesterolemia and no history of trauma Chief Complaint: Upper Extremity Time Seen by MD: 09:51 Primary Care Provider: shreyas Gunn Notes: Nurses Notes, Medications, Allergies Allergies: Coded Allergies: NO KNOWN ALLERGIES (Unverified , 03/06/24) Home Meds Active Scripts Dexamethasone (Decadron) 4 Mg Tb, 4 MG PO BID for 5 Days, #10 TAB Prov:EVELYN MCMAHAN MD 05/02/24 Acetaminophen (Acetaminophen Extra Stren) 500 Mg Tab, 500 MG PO QID for 10 Days, #40 TAB Prov:EVELYN MCMAHAN MD 05/02/24 Diclofenac Potassium (Diclofenac Potassium) 50 Mg Tab, 1 TAB PO TIDP for 10 Days, #30 TAB Prov:EVELYN MCMAHAN MD 05/02/24 Sitagliptin Phosphate (Januvia) 25 Mg Tab, 25 MG PO DAILY for 30 Days, #30 TAB 1 Refill Prov:JOLLY SOUZA MD 03/09/24 Insulin Glargine (Lantus Solostar) 100 Unit/Ml Inj, 25 UNIT SC QAM for 30 Days, #1 INJ 0 Refills Prov:JOLLY SOUZA MD 03/09/24 Insulin Aspart (Insulin Aspart Flexpen) 100 Unit/Ml Inj, 3 UNIT SC TIDWMEALS PRN for 30 Days, #1 INJ 0 Refills take 3 units if pre-meal BG >200 Prov:JOLLY SOUZA MD 03/09/24 Ferrous Sulfate (Ferosul) 325 Mg Tab, 1 TAB PO EOD, #20 TAB 0 Refills Prov:JOLLY SOUZA MD 03/09/24 Reported Medications Rosuvastatin Calcium (Rosuvastatin Calcium) 10 Mg Tab, 1 TAB PO 03/06/24 Information Source: Patient Mode of Arrival: Ambulatory Location: Left Extremity Location: Shoulder Timing: Days Severity: Moderate Able to Move Extremity: Yes Bear Weight: Fully Pain: Moderate Hand Dominance: Right Mechanism: No Trauma, Spontaneous Circumstances: Spontaneous Onset of Symptoms: Spontaneous Symptoms: Swelling DVT Risk Factors: NONE History of: Arthritis Associated signs and symptoms: Shoulder pain, Swelling Past Medical History PAST MEDICAL HISTORY: DM, High Lipids 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: [employer] G[employer] History: No Pertinent [employer] G[employer] INS[employer]OR History Family History Family History: Reviewed,noncontributory to illness Social History Smoker: Non-Smoker Alcohol: Denies ETOH Use Drugs: Denies Drug Use Lives In: Home Constitutional: denies: chills, diaphoresis, fatigue, fever, malaise, sweats, weakness, others EENTM: denies: blurred vision, double vision, ear bleeding, ear discharge, ear drainage, ear pain, ear ringing, eye pain, eye redness, hearing loss, mouth pain, mouth swelling, nasal discharge, nose bleeding, nose congestion, nose pain, photophobia, tearing, throat pain, throat swelling, voice changes, others Respiratory: denies: cough, hemoptysis, orthopnea, SOB at rest, shortness of breath, SOB with excertion, stridor, wheezing, others Cardiovascular: denies: chest pain, dizzy spells, diaphoresis, Dyspnea on exertion, edema, irregular heart beat, left arm pain, lightheadedness, palpitations, PND, syncope, others Gastrointestinal: denies: abdomen distended, abdominal pain, blood streaked bowels, constipated, diarrhea, dysphagia, difficulty swallowing, hematemesis, melena, nausea, poor appetite, poor fluid intake, rectal bleeding, rectal pain, vomiting, others Genitourinary: denies: abnormal vagina bleeding, burning, dyspareunia, dysuria, flank pain, frequency, hematuria, incontinence, pain, , vagina discharge, urgency, others Neurological: denies: dizziness, fainting, headache, left sided numbness, left sided weakness, numbness, paresthesia, pre-existing deficit, right sided numbn ess, right sided weakness, seizure, speech problems, tingling, tremors, weakness, others Musculoskeletal: reports: joint pain, muscle stiffness, others (Shoulder pain lateral aspect minimal swelling); denies: back pain, gout, joint swelling, muscle pain, neck pain Integumetry: denies: bruises, change in color, change in hair/nails, dryness, laceration, lesions, lumps, rash, wounds, others Allergic/Immunocompromised: denies: Difficulty Healing, Frequent Infections, Hives, Itching, others Hematologic/Lymphatic: denies: anemia, blood clots, easy bleeding, easy bruising, swollen glands, others Endocrine: denies: excessive hunger, excessive sweating, excessive thirst, excessive urination, flushing, intolerance to cold, intolerance to heat, unexplained weight gain, unexplained weight loss, others Psychiatric: denies: anxiety, bipolar disorder, depression, hopeless, panic disorder, schizophrenia, sleepless, suicidal, others All Other Systems: Reviewed and Negative Physical Exam General Appearance: Mild Distress, Moderate Distress HEENT: Normal ENT Inspection, Pharynx Normal, TMs Normal Neck: Full Range of Motion, Non-Tender, Normal, Normal Inspection Respiratory: Chest Non-Tender, Lungs Clear, No Accessory Muscle Use, No Respiratory Distress, Normal Breath Sounds Cardiovascular: No Edema, No JVD, No Murmur, No Gallop, Normal Peripheral Pulses, Regular Rate/Rhythm Breast Exam: Deferred Gastrointestinal: No Organomegaly, Non Tender, No Pulsatile Mass, Normal Bowel Sounds, Soft Genitalia: Deferred Pelvic: Deferred Rectal: Deferred Extremities: No calf tenderness, Normal capillary refill, Normal inspection, Normal range of motion, Non-tender, No pedal edema Musculoskeletal : Location: Left Extremity Location: Shoulder Apperance: Normal, Swelling, Limited ROM, Tenderness: Moderate, Other (Pain mostly on lateral and anterior elevation) Neurologic: Alert, bi tri operator II-XII nml as Tested, No Motor Deficits, Normal Affect, Normal Mood, No Sensory Deficits Cerebellar Function: Normal Reflexes: Normal Skin: Dry, Normal Color, Warm Peripheral Pulses: 1+ carotid (R), 1+ carotid (L) Lymphatic: No Adenopathy Was a procedure done? Was a procedure done?: No Differential Diagnosis EXT Differential Diagnosis: Sprain, DJD, Contusion, Bursitis X-Ray, Labs, Meds, VS Vital Signs Date Time Temp Pulse Resp B/P (MAP) Pulse Ox O2 Delivery O2 Flow Rate FiO2 05/02/24 09:37 98.0 99 17 146/83 (104) 98 98.0 05/02/24 09:37 99 17 98 Room Air 05/02/24 09:18 98.0 94 17 146/83 (104) 98 Current Medications Medications (Trade) Dose Ordered Sig/Lacie Route Start Time Stop Time Status Last Admin Ketorolac Tromethamine (Toradol Injection) 60 mg ONCE ONCE IM 05/02/24 10:15 05/02/24 10:16 DC 05/02/24 10:29 X-Ray, Labs, Meds, VS Comment In the emergency department eventful patient came in complaining of left shoulder pain for the past three days with a no history of injury X-ray to the left shoulder shows calcific tendinitis Patient will be discharged home to follow up with her PCP and possible an orthopedist for steroid injections Time of 1ST Reevaluation: 10:40 Reevaluation 1ST: Unchanged Consultation: PCP, Surgery Patient Education/Counseling: Diagnosis, Treatment, Prognosis, Need For Follow Up Family Education/Counseling: Diagnosis, Treatment, Prognosis, Need For Follow Up, No Family Present Departure 1 Departure Time of Disposition: 10:35 Impression: Primary Impression: Calcific tendinitis of left shoulder Disposition: 01 HOME / SELF CARE / HOMELESS Condition: Fair Additional Instructions: Local heat and follow up with your PCP e-Prescriptions Dexamethasone (Decadron) 4 Mg Tb 4 MG PO BID for 5 Days, #10 TAB Prov: EVELYN MCMAHAN MD 05/02/24 Acetaminophen (Acetaminophen Extra Stren) 500 Mg Tab 500 MG PO QID for 10 Days, #40 TAB Prov: EVELYN MCMAHAN MD 05/02/24 Diclofenac Potassium (Diclofenac Potassium) 50 Mg Tab 1 TAB PO TIDP for 10 Days, #30 TAB Prov: EVELYN MCMAHAN MD 05/02/24 Discharged With: Self Critical Care Note Critical Care Time?: No Stability Stability form required: No Heart Score Heart Score: Heart Score Response (Comments) Value History N/A 0 EKG N/A 0 Age 45-64 1 Risk Factors 1 or 2 risk factors 1 Troponin N/A 0 Total 2 EVELYN MCMAHAN MD May 02, 2024 10:22
[2024-05-02] MEDS: KETOROLAC TROMETH 60MG/2ML VIAL IM ONE (10:29)
[2024-05-02] MEDS ORDERED: DEX4T PO (10:41)
[2024-05-02] MEDS ORDERED: DICL50TA2 PO (10:41)
[2024-05-02] MEDS ORDERED: ACET-6 PO (10:41)
--- NOTE | 2024-05-02 10:52 | DVH ---
XY L SHOULDER 2+ VIEW XRAY INDICATION: Bicipital bursitis TECHNICAL DATA: 3 views were obtained of the left shoulder. COMPARISON: None FINDINGS: There is no fracture or focal bone abnormality. The glenohumeral joint is normally maintained. The ac romioclavicular joint appears normal. The humeral head is not high riding. Adjacent soft tissues are within normal limits. IMPRESSION: Calcific tendinosis is visualized. No acute fracture or dislocation of the left shoulder.
== END 2024-05-02 10:51 | disposition home or self-care (01) ==
LOC: ER 09:10
DX: M75.32 Calcific tendinitis of left shoulder (principal); E11.9 Type 2 diabetes mellitus without complications; E78.00 Pure hypercholesterolemia, unspecified; M19.90 Unspecified osteoarthritis, unspecified site; Z79.84 Long term (current) use of oral hypoglycemic drugs; Z79.899 Other long term (current) drug therapy; Z98.890 Other specified postprocedural states
CPT/HCPCS: 73030; 96372; 99283; J1885

== ENCOUNTER 2024-07-22 05:03 | Emergency (ER) | payer OTHER ==
[~2024-07-22] VITALS: Ht 165.1 cm; Wt 65.0 kg
[~2024-07-22 05:03] MED LIST changes: +ACET-6 PO; +DEX4T PO; +DICL50TA2 PO
[2024-07-22 06:12] LABS: Chloride 104 mmol/L (98-107); Sodium 139 mmol/L (136-145)
[2024-07-22 06:13] LABS: Anion Gap 9 (5-15); Calcium 9.3 mg/dL (8.7-10.4); Carbon Dioxide 26 mmol/L (20-31)
[2024-07-22 06:18] LABS: BUN/Creatinine Ratio 17.8 (10.0-20.0); Blood Urea Nitrogen 13 mg/dL (9-23)
[2024-07-22 06:29] LABS: Glucose 257 mg/dL (74-106)
--- NOTE | 2024-07-22 06:36 | ED.PDOC ---
SOB-HPI HPI Comments A 48 YEAR OLD FEMALE PRESENTS TO THE ED WITH CHIEF COMPLAINT OF COUGH. PATIENT REPORTS THAT SHE HAS BEEN EXPERIENCING AN INTERMITTENT COUGH FOR THE PAST MONTH, BUT WOKE UP WITH SOB THIS MORNING. PATIENT RELAYS THAT SHE VISITED LAST WEEK AND HAD BEEN PRESCRIBED Z-JORDEN AND COUGH MEDICINE, BUT NO RELIEF HAS BEEN NOTED. PATIENT STATES SHE HAS HISTORY OF ASTHMA AND HAS BEEN UTILIZING HER INHALER WITH LITTLE RELIEF. PATIENT DENIES ANY CHEST PAIN, FEVER, CHILLS, HEADACHE, DIZZINESS, SORE THROAT, OR EAR PAIN. NO OTHER SYMPTOMS REPORTED AT THIS TIME OF CARE. Chief Complaint: Cough Time Seen by MD: 06:29 Primary Care Provider: shreyas Gunn notes: Nurses Notes, Medications, Allergies Information Source: Patient Mode of Arrival: Ambulatory Severity: Moderate Timing: Months Duration: Since onset, Intermittent Context: At Rest PE Risk Factors: None History of: Asthma, Recent URI Prehospital treatment: None Modifying Factors: Nothing Associated Signs and Symptoms: Cough, Nasal Congestion If cough with SOB: Productive Past Medical History PAST MEDICAL HISTORY: Asthma, DM, High Lipids 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: CIRCUS RIDER History: No Pertinent CIRCUS RIDER History Family History Family History: Reviewed,noncontributory to illness Social History Smoker: Non-Smoker Alcohol: Denies ETOH Use Drugs: Denies Drug Use Lives In: Home Constitutional: denies: chills, diaphoresis, fatigue, fever, malaise, sweats, weakness, others EENTM: reports: nose congestion; denies: blurred vision, double vision, ear bleeding, ear discharge, ear drainage, ear pain, ear ringing, eye pain, eye redness, hearing loss, mouth pain, mouth swelling, nasal discharge, nose bleeding, nose pain, photophobia, tearing, throat pain, throat swelling, voice changes, others Respiratory: reports: cough; denies: hemoptysis, orthopnea, SOB at rest, shortness of breath, SOB with excertion, stridor, wheezing, others Cardiovascular: denies: chest pain, dizzy spells, diaphoresis, Dyspnea on exertion, edema, irregular heart beat, left arm pain, lightheadedness, palpitations, PND, syncope, others Gastrointestinal: denies: abdomen distended, abdominal pain, blood streaked bowels, constipated, diarrhea, dysphagia, difficulty swallowing, hematemesis, melena, nausea, poor appetite, poor fluid intake, rectal bleeding, rectal pain, vomiting, others Genitourinary: denies: abnormal vagina bleeding, burning, dyspareunia, dysuria, flank pain, frequency, hematuria, incontinence, pain, , vagina discharge, urgency, others Neurological: denies: dizziness, fainting, headache, left sided numbness, left sided weakness, numbness, paresthesia, pre-existing deficit, right sided numbness, right sided weakness, seizure, speech problems, tingling, tremors, weakness, others Musculoskeletal: denies: back pain, gout, joint pain, joint swelling, muscle pain, muscle stiffness, neck pain, others Integumetry: denies: bruises, change in color, change in hair/nails, dryness, laceration, lesions, lumps, rash, wounds, others Allergic/Immunocompromised: denies: Difficulty Healing, Frequent Infections, Hives, Itching, others Hematologic/Lymphatic: denies: anemia, blood clots, easy bleeding, easy bruising, swollen glands, others Endocrine: denies: excessive hunger, excessive sweating, excessive thirst, excessive urination, flushing, intolerance to cold, intolerance to heat, unexplained weight gain, unexplained weight loss, others Psychiatric: denies: anxiety, bipolar disorder, depression, hopeless, panic disorder, schizophrenia, sleepless, suicidal, others All Other Systems: Reviewed and Negative Physical Exam General Appearance: No Apparent Distress, Normal HEENT: Normal ENT Inspection, PERRL/EOMI, Pharyngeal Erythema, TMs Normal Neck: Full Range of Motion, Non-Tender, Normal, Normal Inspection Respiratory: Chest Non-Tender, Decreased Breath Sounds, Expiration, No Accessory Muscle Use, No Respiratory Distress, Rhonchi Cardiovascular: No Edema, No JVD, No Murmur, No Gallop, Normal Peripheral Pulses, Regular Rate/Rhythm Breast Exam: Deferred Gastrointestinal: No Organomegaly, Non Tender, No Pulsatile Mass, Normal Bowel Sounds, Soft Genitalia: Deferred Pelvic: Deferred Rectal: Deferred Extremities: No calf tenderness, Normal capillary refill, Normal inspection, Normal range of motion, Non-tender, No pedal edema Musculoskeletal : Apperance: Normal Neurologic: Alert, test analyst II-XII nml as Tested, No Motor Deficits, Normal Affect, Normal Mood, No Sensory Deficits Cerebellar Function: Normal Reflexes: Normal Skin: Dry, Normal Color, Warm Peripheral Pulses: 2+ carotid (R), 2+ carotid (L) Lymphatic: No Adenopathy Was a procedure done? Was a procedure done?: No Differential Dx Differential Diagnosis: Asthma, Bronchitis, Pneumonia, Sinusitis, Allergic Rhinitis, Pharyngitis, URI X-Ray, Labs, Meds, VS Vital Signs Date Time Temp Pulse Resp B/P (MAP) Pulse Ox O2 Delivery O2 Flow Rate FiO2 07/22/24 07:28 18 94 Room Air* 0 21 07/22/24 06:43 94 17 93 Room Air 07/22/24 06:43 98.0 94 17 118/73 (88) 93 98.0 07/22/24 05:10 98.0 94 17 118/73 (88) 93 98.0 Lab Test 07/22/24 05:41 07/22/24 05:16 Range/Units Sodium Level 139 136-145 mmol/L Potassium Level 4.0 3.5-5.1 mmol/L Chloride Level 104 98-107 mmol/L Carbon Dioxide Level 26 20-31 mmol/L Anion Gap 9 5-15 Blood Urea Nitrogen 13 9-23 mg/dL Creatinine 0.73 0.550-1.02 mg/dL Glomerular Filtration Rate Calc 101 >90 mL/min BUN/Creatinine Ratio 17.8 10.0-20.0 Serum Glucose 257 H 74-106 mg/dL Calcium Level 9.3 8.7-10.4 mg/dL Influenza Type A Antigen Negative Negative Influenza Type B Antigen Negative Negative SARS-CoV-2 Antigen (Rapid) Negative NEGATIVE Current Medications Medications (Trade) Dose Ordered Sig/Lacie Route Start Time Stop Time Status Last Admin Albuterol (Ventolin Medneb) 2.5 mg ONCE ONCE NEB 07/22/24 07:00 07/22/24 07:01 DC 07/22/24 07:28 Ipratropium [place] (Atrovent Medneb) 0.5 mg ONCE ONCE NEB 07/22/24 07:00 07/22/24 07:01 DC 07/22/24 07:28 PATIENT: KATHIE BARRETTT: [id number]: [id number] : 1975 LOC: ER ROOM / BED: / AGE / SEX: 48 / F ADM STATUS: REG ER SERVICE [id number] ORDERING PHYSICIAN: DONOVAN LOCKWOOD PROCEDURE(s): CXR2 - CHEST TWO VIEWS ROUTINE REASON: COUGH ORDER NUMBER(s): [id number], ACCESSION NUMBER(s): [id number] EXAM: XR Chest, 2 Views CLINICAL INDICATION: COUGH TECHNIQUE: Frontal and lateral views of the chest. COMPARISON: None FINDINGS: LUNGS AND PLEURAL SPACES: Unremarkable. No consolidation. No pneumothorax. HEART: Unremarkable. No cardiomegaly. MEDIASTINUM: Unremarkable. Normal mediastinal contour. BONES/JOINTS: Unremarkable. No acute fracture. OTHER FINDINGS: . IMPRESSION: No acute cardiopulmonary process. ATED BY: DEISY MCGUIRE MD DICTATED DATE/TIME: 07/22/24648 SIGNED BY: DEISY MCGUIRE MD SIGNED DATE/TIME: 07/22/24648 X-Ray, Labs, Meds, VS Comment EXTERNAL MEDICAL RECORDS REVIEWED: [NONE] INDEPENDENT HISTORIANS: [NONE] SOCIAL DETERMINANTS OF HEALTH: [NONE] LABS ORDERED: CBC, BMP, FLU, COVID REVIEWED AND INTERPRETED RESULTS: CXR IMAGING ORDERED: CXR: NORMAL TREATMENTS ORDERED: DUONEB BREATHING TREATMENT PROCEDURES PERFORMED: NONE CRITICAL CARE TIME: NONE I HAVE DISCUSSED THE PATIENT WITH THE ATTENDING PHYSICIAN DR. GILLIS AND HE AGREES WITH THE PATIENT'S PLAN OF CARE AND DISPOSITION. BASED ON HISTORY OF PRESENT ILLNESS, AND PHYSICAL EXAM, PATIENT WILL BE DISCHARGED HOME. DISCUSSED PLAN FOR DISCHARGE HOME WITH RX MEDROL DOSE PACK, PHENERGAN DM AND LEVAQUIN. MEDICATION WARNINGS GIVEN. SHARED DECISION MAKING: DISCUSSED WITH PATIENT THAT THEIR WORKUP WAS NORMAL. PATIENT INSTRUCTED TO FOLLOW UP WITH PRIMARY CARE PROVIDER IN 1-2 DAYS FOR RE- EVALUATION OF SYMPTOMS. PATIENT VERBALIZES UNDERSTANDING TO RETURN TO ED FOR NEW OR WORSENING SYMPTOMS OR IF FOLLOW UP WITH PCP CANNOT BE OBTAINED. PATIENT FEELS COMFORTABLE GOING HOME AT THIS TIME. ALL QUESTIONS ADDRESSED AT TIME OF DISCHARGE. Time of 1ST Reevaluation: 07:39 Reevaluation 1ST: Improved Patient Education/Counseling: Diagnosis, Treatment Family Education/Counseling: Diagnosis, Treatment, No Family Present Medical Screening: No EMC Exist At This Time Departure 1 Departure Time of Disposition: 07:40 Impression: Primary Impression: Asthmatic bronchitis Qualified Codes: J45.31 - Mild persistent asthma with (acute) exacerbation Disposition: 01 HOME / SELF CARE / HOMELESS Condition: Stable Additional Instructions: FOLLOW-UP WITH PCP IN 1 TO 2 DAYS. TAKE MEDICATIONS PRESCRIBED. RETURN TO ED FOR ANY NEW OR WORSENING SYMPTOMS. e-Prescriptions Methylprednisolone (Medrol Dosepak) 4 Mg Jorden 4 MG PO UD, #21 TAB UAD Prov: RICARDO DIAZ 07/22/24 Promethazine-Dm (Promethazine Dm 6.25-15 mg/5Ml) 1 Nati Nati 5 ML PO TID, #180 ML Prov: RICARDO DIAZ 07/22/24 Levofloxacin Hemihydrate (LEVAQUIN 500 MG) 500 Mg Tab 1 TAB PO DAILY, #7 TAB Prov: RICARDO DIAZ 07/22/24 Discharged With: Self, Relative Critical Care Note Critical Care Time?: No Stability Stability form required: No Heart Score Heart Score: Heart Score Response (Comments) Value History N/A 0 EKG N/A 0 Age N/A 0 Risk Factors N/A 0 Troponin N/A 0 Total 0 I personally scribed for RICARDO DIAZ ([email or web address]) on 07/22/24 at 06:35. Electronically submitted by Austin Beck ([email or web address]). I personally scribed for RICARDO DIAZ ([email or web address]) on 07/22/24 at 06:41. Electronically submitted by Austin Beck ([email or web address]). I personally scribed for RICARDO DIAZ ([email or web address]) on 07/22/24 at 06:56. Electronically submitted by Austin Beck ([email or web address]). I personally scribed for RICARDO DIAZ ([email or web address]) on 07/22/24 at 06:58. Electronically submitted by Austin Beck ([email or web address]). RICARDO DIAZ July 22, 2024 06:35
[2024-07-22 06:40] LABS: COVID19 ANTIGEN SOFIA FIA NEGATIVE (NEGATIVE); Rapid Influenza A Negative (Negative); Rapid Influenza B Negative (Negative)
[2024-07-22 06:43] VITALS: BP 118/73; PULSE 94; TEMP 98
--- NOTE | 2024-07-22 06:52 | DVH ---
EXAM: XR Chest, 2 Views CLINICAL INDICATION: COUGH TECHNIQUE: Frontal and lateral views of the chest. COMPARISON: None FINDINGS: LUNGS AND PLEURAL SPACES: Unremarkable. No consolidation. No pneumothorax. HEART: Unremarkable. No cardiomegaly. MEDIASTINUM: Unremarkable. Normal mediastinal contour. BONES/JOINTS: Unremarkable. No acute fracture. OTHER FINDINGS: . IMPRESSION: No acute cardiopulmonary process.
[2024-07-22] MEDS ORDERED: METH4PAK PO (07:01)
[2024-07-22] MEDS ORDERED: LEVO500T91 PO (07:01)
[2024-07-22] MEDS ORDERED: PROM1SOL4 PO (07:01)
[2024-07-22 07:28] VITALS: RESP 18; O2SAT 94
[2024-07-22] MEDS: ALBUTEROL SULF 2.5 MG/0.5ML(0.5%) NEB SOLN NEB ONE (07:28)
[2024-07-22] MEDS: IPRATROPIUM BROM 0.5 MG/2.5ML INH SOL NEB ONE (07:28)
== END 2024-07-22 07:40 | disposition home or self-care (01) ==
LOC: ER 05:03
DX: J45.909 Unspecified asthma, uncomplicated (principal); E11.9 Type 2 diabetes mellitus without complications; E78.5 Hyperlipidemia, unspecified; Z98.890 Other specified postprocedural states; Z20.822 Contact with and (suspected) exposure to COVID-19
CPT/HCPCS: 36415; 71046; 80048; 87426; 87804; 94640

== ENCOUNTER 2024-08-14 05:52 | Inpatient (IN) | payer OTHER ==
[~2024-08-14] VITALS: Ht 165.1 cm; Wt 64.1 kg
[~2024-08-14 05:52] MED LIST changes: +LEVO500T91 PO; +METH4PAK PO; +PROM1SOL4 PO
--- NOTE | 2024-08-14 06:25 | ED.PDOC ---
History of Present Illness HPI Comments 48F presents to the ER w/ prior MHx of Athma, DM, High Lipids;SHx of and the c/c of SOB. Pt reports on having a lingering cough for over a month. Pt states that she has seen her PCP, went to , and the ER at [facility] at 07/22/24 w/ each giving the pt albuterol and 3 courses of steroids. No other associated symptoms, modifiers, recent injuries or sick contacts present at this time. Chief Complaint: Shortness of Breath Time Seen by MD: 06:15 Primary Care Provider: shreyas Reviewed Notes: Nurses Notes, Medications, Allergies Allergies: Coded Allergies: Shellfish Allergy (Verified Allergy, Severe, 07/22/24) Home Meds Active Scripts Methylprednisolone (Medrol Dosepak) 4 Mg Jorden, 4 MG PO UD, #21 TAB UAD Prov:RICARDO DIAZ 07/22/24 Promethazine-Dm (Promethazine Dm 6.25-15 mg/5Ml) 1 Nati Nati, 5 ML PO TID, #180 ML Prov:RICARDO DIAZ 07/22/24 Levofloxacin Hemihydrate (LEVAQUIN 500 MG) 500 Mg Tab, 1 TAB PO DAILY, #7 TAB Prov:RICARDO DIAZ 07/22/24 Dexamethasone (Decadron) 4 Mg Tb, 4 MG PO BID for 5 Days, #10 TAB Prov:EVELYN MCMAHAN MD 05/02/24 Acetaminophen (Acetaminophen Extra Stren) 500 Mg Tab, 500 MG PO QID for 10 Days, #40 TAB Prov:EVELYN MCMAHAN MD 05/02/24 Diclofenac Potassium (Diclofenac Potassium) 50 Mg Tab, 1 TAB PO TIDP for 10 Days, #30 TAB Prov:EVELYN MCMAHAN MD 05/02/24 Sitagliptin Phosphate (Januvia) 25 Mg Tab, 25 MG PO DAILY for 30 Days, #30 TAB 1 Refill Prov:JOLLY SOUZA MD 03/09/24 Insulin Glargine (Lantus Solostar) 100 Unit/Ml Inj, 25 UNIT SC QAM for 30 Days, #1 INJ 0 Refills Prov:JOLLY SOUZA MD 03/09/24 Insulin Aspart (Insulin Aspart Flexpen) 100 Unit/Ml Inj, 3 UNIT SC TIDWMEALS PRN for 30 Days, #1 INJ 0 Refills take 3 units if pre-meal BG >200 Prov:JOLLY SOUZA MD 03/09/24 Ferrous Sulfate (Ferosul) 325 Mg Tab, 1 TAB PO EOD, #20 TAB 0 Refills Prov:JOLLY SOUZA MD 03/09/24 Reported Medications Rosuvastatin Calcium (Rosuvastatin Calcium) 10 Mg Tab, 1 TAB PO 03/06/24 Information Source: Patient Mode of Arrival: Ambulatory Severity: Moderate Timing: Months Duration: Since onset Prehospital treatment: None Past Medical History PAST MEDICAL HISTORY: Asthma, DM, High Lipids 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: 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 INSURANCE PROFESSIONAL 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 Family History Family History: Reviewed,noncontributory to illness, Unknown Social History Smoker: Non-Smoker Alcohol: Denies ETOH Use Drugs: Denies Drug Use Lives In: Home Constitutional: denies: chills, diaphoresis, fatigue, fever, malaise, sweats, weakness, others EENTM: denies: blurred vision, double vision, ear bleeding, ear discharge, ear drainage, ear pain, ear ringing, eye pain, eye redness, hearing loss, mouth pa in, mouth swelling, nasal discharge, nose bleeding, nose congestion, nose pain, photophobia, tearing, throat pain, throat swelling, voice changes, others Respiratory: reports: shortness of breath, wheezing; denies: cough, hemoptysis, orthopnea, SOB at rest, SOB with excertion, stridor, others Cardiovascular: denies: chest pain, dizzy spells, diaphoresis, Dyspnea on exertion, edema, irregular heart beat, left arm pain, lightheadedness, palpitations, PND, syncope, others Gastrointestinal: denies: abdomen distended, abdominal pain, blood streaked bowels, constipated, diarrhea, dysphagia, difficulty swallowing, hematemesis, melena, nausea, poor appetite, poor fluid intake, rectal bleeding, rectal pain, vomiting, others Genitourinary: denies: abnormal vagina bleeding, burning, dyspareunia, dysuria, flank pain, frequency, hematuria, incontinence, pain, , vagina discharge, urgency, others Neurological: denies: dizziness, fainting, headache, left sided numbness, left sided weakness, numbness, paresthesia, pre-existing deficit, right sided numbness, right sided weakness, seizure, speech problems, tingling, tremors, weakness, others Musculoskeletal: denies: back pain, gout, joint pain, joint swelling, muscle pain, muscle stiffness, neck pain, others Integumetry: denies: bruises, change in color, change in hair/nails, dryness, laceration, lesions, lumps, rash, wounds, others Allergic/Immunocompromised: denies: Difficulty Healing, Frequent Infections, Hives, Itching, others Hematologic/Lymphatic: denies: anemia, blood clots, easy bleeding, easy bruising, swollen glands, others Endocrine: denies: excessive hunger, excessive sweating, excessive thirst, excessive urination, flushing, intolerance to cold, intolerance to heat, unexplained weight gain, unexplained weight loss, others Psychiatric: denies: anxiety, bipolar disorder, depression, hopeless, panic disorder, schizophrenia, sleepless, suicidal, others All Other Systems: Reviewed and Negative Physical Exam General Appearance: No Apparent Distress, Normal HEENT: Normal ENT Inspection, Pharynx Normal, TMs Normal Neck: Full Range of Motion, Non-Tender, Normal, Normal Inspection Respiratory: Chest Non-Tender, Lungs Clear, No Accessory Muscle Use, Wheezing (Bilateral) Cardiovascular: No Edema, No JVD, No Murmur, No Gallop, Normal Peripheral Pulses, Regular Rate/Rhythm Breast Exam: Deferred Gastrointestinal: No Organomegaly, Non Tender, No Pulsatile Mass, Normal Bowel Sounds, Soft Genitalia: Deferred Pelvic: Deferred Rectal: Deferred Extremities: No calf tenderness, Normal capillary refill, Normal inspection, Normal range of motion, Non-tender, No pedal edema Musculoskeletal : Apperance: Normal Neurologic: Alert, domestic freight forwarder II-XII nml as Tested, No Motor Deficits, Normal Affect, Normal Mood, No Sensory Deficits Cerebellar Function: Normal Reflexes: Normal Skin: Dry, Normal Color, Warm Lymphatic: No Adenopathy Was a procedure done? Was a procedure done?: No Differential Dx Considerations may include: pneumonia, ptx, pleural effusion, chf, respiratory failure, asthma exacerbation, anxiety, viral pneumonitis X-Ray, Labs, Meds, VS Vital Signs Date Time Temp Pulse Resp B/P (MAP) Pulse Ox O2 Delivery O2 Flow Rate FiO2 08/14/24 06:43 97.7 95 16 123/85 (98) 96 97.7 08/14/24 06:40 13 93 Nasal Cannula* 3 32 08/14/24 06:39 18 96 Nasal Cannula* 3 32 08/14/24 05:53 99.1 96 22 124/74 (91) 95 99.1 08/14/24 05:53 22 95 Nasal Cannula* 4 36 Lab Test 08/14/24 06:49 Range/Units White Blood Count 8.6 4.4-10.8 10^3/uL Red Blood Count 4.69 4.0-5.20 10^6/uL Hemoglobin 14.4 12.2-16.2 g/dL Hematocrit 42.3 36.0-46.0 % Mean Corpuscular Volume 90.3 80.0-100.0 fL Mean Corpuscular Hemoglobin 30.6 28.0-32.0 pg Mean Corpuscular Hemoglobin Concent 33.9 32.0-36.0 g/dL Red Cell Distribution Width 14.1 11.8-14.3 % Platelet Count 297 140-450 10^3/uL Mean Platelet Volume 8.4 6.9-10.8 fL Neutrophils (%) (Auto) 37.0-80.0 % Lymphocytes (%) (Auto) 10.0-50.0 % Monocytes (%) (Auto) 0.0-12.0 % Eosinophils (%) (Auto) 0.0-7.0 % Basophils (%) (Auto) 0.0-2.0 % Neutrophils # (Auto) 1.6-8.6 10 ^3/uL Lymphocytes # (Auto) 0.4-5.4 10 ^3/uL Monocytes # (Auto) 0-1.3 10 ^3/uL Differential Total Cells Counted Pending Neutrophils % (Manual) Pending Band Neutrophils % (Manual) Pending Lymphocytes % (Manual) Pending Monocytes % (Manual) Pending Eosinophils % (Manual) Pending Basophils % (Manual) Pending Metamyelocytes % (manual) Pending Myelocytes % (Manual) Pending Promyelocytes % (Manual) Pending Blast Cells % (Manual) Pending Reactive Lymphocytes Pending Platelet Estimate Pending Sodium Level 139 136-145 mmol/L Potassium Level 3.9 3.5-5.1 mmol/L Chloride Level 103 98-107 mmol/L Carbon Dioxide Level 26 20-31 mmol/L Anion Gap 10 5-15 Blood Urea Nitrogen 15 9-23 mg/dL Creatinine 0.91 0.550-1.02 mg/dL Glomerular Filtration Rate Calc 77 >90 mL/min BUN/Creatinine Ratio 16.5 10.0-20.0 Serum Glucose 334 H 74-106 mg/dL Calcium Level 9.9 8.7-10.4 mg/dL Current Medications Medications (Trade) Dose Ordered Sig/Lacie Route Start Time Stop Time Status Last Admin Magnesium Sulfate/ Dextrose 100 ml @ 100 mls/hr Q1H IV 08/14/24 06:15 08/14/24 08:14 08/14/24 06:39 Albuterol (Ventolin Medneb) 20 mg ONCE ONCE NEB 08/14/24 06:15 08/14/24 06:22 DC 08/14/24 06:39 Ipratropium [place] (Atrovent Medneb) 0.5 mg ONCE ONCE NEB 08/14/24 06:15 08/14/24 06:22 DC 08/14/24 06:39 Methylprednisolone Sodium Succinate (Solu Medrol) 125 mg ONCE ONCE IV 08/14/24 06:15 08/14/24 06:22 DC 08/14/24 06:39 Time of 1ST Reevaluation: 06:45 Reevaluation 1ST: Unchanged Patient Education/Counseling: Diagnosis, Treatment, Prognosis, Need For Follow Up Family Education/Counseling: No Family Present Comments pt has viral pneumonitis and asthma exacerbation with failure of outpatient treatments, after an ER visit, UC, and pcp clinic visit. she also failed 3 coursed of steroids. pt has acute respiratory failure with hypoxia and will be admitted Departure 1 Departure Time of Disposition: 07:33 Impression: Primary Impression: Asthma exacerbation Qualified Codes: J45.51 - Severe persistent asthma with (acute) exacerbation Additional Impressions: Viral pneumonitis Respiratory failure Qualified Codes: J96.01 - Acute respiratory failure with hypoxia Disposition: ADMITTED INPATIENT Admit to: Tele Condition: Serious Discharged With: Self Critical Care Note Critical Care Time?: Yes (45 min-critical care time only) Critical care comment: due to concerns for deterioration of patient's condition, the care required my highest level of attention and readiness. i assessed the patient's condition, reviewed relevant documents, communicated with medical personnel, ordered the proper tests and treatments, reassessed for results and response to treatments, spoke to family and consultants and formulated a plan of care Stability Stability form required: No I personally scribed for BERTRAND LUNDBERG MD ([email or web address]) on 08/14/24 at 06:25. Electronically submitted by Javier Smith ([email or web address]). I personally scribed for BERTRAND LUNDBERG MD (JOAN) on 08/14/24 at 06:26. Electronically submitted by Bob Jenkins ([email or web address]). I personally scribed for BERTRAND LUNDBERG MD (JOAN) on 08/14/24 at 06:30. Electronically submitted by Javier Smith ([email or web address]). BERTRAND LUNDBERG MD Aug 14, 2024 06:25
[2024-08-14] MEDS: MAGNESIUM SULFATE 1GM/100ML 100 ML IV SCH (06:39)
[2024-08-14] MEDS: ALBUTEROL SULF 2.5 MG/0.5ML(0.5%) NEB SOLN NEB ONE (06:39)
[2024-08-14] MEDS: IPRATROPIUM BROM 0.5 MG/2.5ML INH SOL NEB ONE (06:39)
[2024-08-14] MEDS: methylPREDNISolone SOD SUCC 125 MG/2 ML VL IV ONE (06:39)
[2024-08-14 06:40] VITALS: RESP 13; O2SAT 93
--- NOTE | 2024-08-14 06:47 | DVH ---
CHEST RADIOGRAPH Indication: sob Technique: Single frontal view of the chest was obtained COMPARISON: XY CHEST XRAY 1 VIEW on DOS: 03/06/24 FINDINGS: Lines and Tubes: None Lungs: Diffuse increased interstitial prominence. Pleura: No effusion. No pneumothorax. Cardiomediastinal contours: Unremarkable Bones: Unremarkable IMPRESSION: Possible viral pneumonia or pulmonary vascular congestion
[2024-08-14 06:57] LABS: Hematocrit 42.3 % (36.0-46.0); Hemoglobin 14.4 g/dL (12.2-16.2); Mean Corpuscular Hemoglobin 30.6 pg (28.0-32.0); Mean Corpuscular Hgb Conc. 33.9 g/dL (32.0-36.0); Mean Corpuscular Volume 90.3 fL (80.0-100.0); Platelet Count (auto) 297 10^3/uL (140-450); Red Blood Cells 4.69 10^6/uL (4.0-5.20); Red Cell Distribution Width 14.1 % (11.8-14.3); White Blood Cell 8.6 10^3/uL (4.4-10.8)
[2024-08-14 07:05] LABS: Chloride 103 mmol/L (98-107); Potassium 3.9 mmol/L (3.5-5.1); Sodium 139 mmol/L (136-145)
[2024-08-14 07:06] LABS: Anion Gap 10 (5-15); Calcium 9.9 mg/dL (8.7-10.4); Carbon Dioxide 26 mmol/L (20-31)
[2024-08-14 07:08] LABS: Band Neutrophils % (manual) 0; Basophils % (manual) 0 (0.0-2.0); Blast Cells 0; Metamyelocytes % 0; Myelocytes % 0; Promyelocytes % 0; Reactive Lymphocytes 0
[2024-08-14 07:11] LABS: BUN/Creatinine Ratio 16.5 (10.0-20.0); Blood Urea Nitrogen 15 mg/dL (9-23); Glucose 334 mg/dL (74-106)
[2024-08-14 07:55] LABS: Lymphocytes % (manual) 22 (10.0-50.0); Monocytes % (manual) 4 (0-12)
[2024-08-14 07:56] LABS: Eosinophils % (manual) 40 (0-7); Platelet Estimate Adequate
[2024-08-14] MEDS ORDERED: DEXTROSE (50%) 50ML SYRG IV PRN (10:15)
[2024-08-14] MEDS ORDERED: ACETAMINOPHEN 325 MG TAB PO PRN (11:15)
[2024-08-14] MEDS ORDERED: ONDANSETRON HCL 4 MG/2 ML VIAL IV PRN (11:15)
[2024-08-14] MEDS ORDERED: MORPHINE SULFATE INJ 2 MG/ml SYRG IV PRN (11:15)
[2024-08-14] MEDS ORDERED: NITROGLYCERIN 0.4 MG SL TAB SL PRN (11:15)
--- NOTE | 2024-08-14 11:18 | DVHHP2 ---
History of Present Illness Reason for Visit: SOB with cough History of Present Illness Cristal Ramirez is a 48-year-old female with past medical history of hyperlipidemia, diabetes type 2, asthma, and who presents to the ED with shortness of breath and cough x2 months. Patient and at chair side Ellen they stated that they went to [place] 2 months ago in [facility] to visit their family also went to [facility] in the beginning of the year in March and stated that she was sick with a virus also hospitalized for 2 days in the ICU. She reports that she was never intubated but she had come down with a pretty bad illness. Patient also reports that she does not use oxygen at home however upon examination patient is currently on 3 L nasal cannula. Patient also states that she has been coughing up yellow and white sputum. Patient denies any chest pain, fever, chills, lightheadedness, weakness, dizziness, recent trauma or injury, recent ingestion of spoiled food, abdominal pain, nausea, vomiting, or diarrhea. Patient also states that she was given steroids to take and is aware that her blood sugar is high. She reports that the steroids are not helping. Cardiovascular: HTN Pulmonary: Asthma Endocrine: Diabetes Past 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: Family History: None Smoke: No ALCOHOL: none Drugs: None Lives: with Family Domestic Violence: Neg Review of Systems Respiratory: Cough, Shortness of breath, Sputum Allergies: Coded Allergies: Shellfish Allergy (Verified Allergy, Severe, 07/22/24) Medications Current Medications Medications Dose Ordered Sig/Lacie Route Start Time Stop Time Status Last Admin Dose Admin Diagnostic Test (Pha) 1 strip ACHS 08/14/24 11:30 Insulin Human Regular ACHS SC 08/14/24 11:30 Dextrose 50 ml UD PRN IV 08/14/24 10:15 Ondansetron HCl 4 mg Q4HP PRN IV 08/14/24 11:15 UNV Acetaminophen 650 mg Q6HP PRN PO 08/14/24 11:15 UNV Nitroglycerin 0.4 mg Q5MINP PRN SL 08/14/24 11:15 UNV Morphine Sulfate 2 mg Q30M PRN IV 08/14/24 11:15 UNV Ceftriaxone Sodium 50 ml @ 100 mls/hr DAILY@09 IV 08/14/24 11:15 UNV Azithromycin 250 ml @ 125 mls/hr DAILY IV 08/14/24 11:15 UNV Exam Vital Signs Vital Signs Date Time Temp Pulse Resp B/P (MAP) Pulse Ox O2 Delivery O2 Flow Rate FiO2 08/14/24 09:37 98.0 117 16 115/66 (82) 94 98.0 08/14/24 06:40 Nasal Cannula* 3 32 General Appearance: Alert, Oriented X3, Cooperative, No acute distress HEENT: Atraumatic, PERRLA, EOMI, Mucous membr. moist/pink Respiratory: Normal air movement Cardiovascular: Normal S1, Normal S2 Abdominal: Normal bowel sounds, Soft, No tenderness, No hepatospenomegaly, No masses Extremities: No clubbing, No cyanosis, No edema, Normal pulses Skin: No significant lesion Neuro: Normal gait, Normal speech, Strength at 5/5 X4 ext, Normal tone, Sensation intact Psych/Mental Status: Mental status NL, Mood NL Labs/Xrays Labs Test 08/14/24 06:49 Range/Units White Blood Count 8.6 4.4-10.8 10^3/uL Red Blood Count 4.69 4.0-5.20 10^6/uL Hemoglobin 14.4 12.2-16.2 g/dL Hematocrit 42.3 36.0-46.0 % Mean Corpuscular Volume 90.3 80.0-100.0 fL Mean Corpuscular Hemoglobin 30.6 28.0-32.0 pg Mean Corpuscular Hemoglobin Concent 33.9 32.0-36.0 g/dL Red Cell Distribution Width 14.1 11.8-14.3 % Platelet Count 297 140-450 10^3/uL Mean Platelet Volume 8.4 6.9-10.8 fL Neutrophils (%) (Auto) 37.0-80.0 % Lymphocytes (%) (Auto) 10.0-50.0 % Monocytes (%) (Auto) 0.0-12.0 % Eosinophils (%) (Auto) 0.0-7.0 % Basophils (%) (Auto) 0.0-2.0 % Neutrophils # (Auto) 1.6-8.6 10 ^3/uL Lymphocytes # (Auto) 0.4-5.4 10 ^3/uL Monocytes # (Auto) 0-1.3 10 ^3/uL Differential Total Cells Counted 100.0 100 Neutrophils % (Manual) 34 L 37.0-80.0 Band Neutrophils % (Manual) 0 Lymphocytes % (Manual) 22 10.0-50.0 Monocytes % (Manual) 4 0-12 Eosinophils % (Manual) 40 H 0-7 Basophils % (Manual) 0 0.0-2.0 Metamyelocytes % (manual) 0 Myelocytes % (Manual) 0 Promyelocytes % (Manual) 0 Blast Cells % (Manual) 0 Reactive Lymphocytes 0 Platelet Estimate Adequate D-Dimer, Quantitative 0.30 0.0-0.49 mg/L FEU Sodium Level 139 136-145 mmol/L Potassium Level 3.9 3.5-5.1 mmol/L Chloride Level 103 98-107 mmol/L Carbon Dioxide Level 26 20-31 mmol/L Anion Gap 10 5-15 Blood Urea Nitrogen 15 9-23 mg/dL Creatinine 0.91 0.550-1.02 mg/dL Glomerular Filtration Rate Calc 77 >90 mL/min BUN/Creatinine Ratio 16.5 10.0-20.0 Serum Glucose 334 H 74-106 mg/dL Hemoglobin A1c 8.4 H <5.7 % A1C Calcium Level 9.9 8.7-10.4 mg/dL Procedure: CT CHEST WITHOUT CONTRAST Reason for study/Clinical History: POSSIBLE MASS; CHRONIC COUGH Comparison Study: None Exam Date: 08/14/2024 11:35 AM TECHNIQUE: Multidetector CT of the chest was performed from the lung apices to the upper abdomen without the use of intravenous contract. Axial, coronal and sagittal multiplanar reformats were performed. Radiation Dose Information: CT Dose: CTDI volume is 5.13 mGy. Dose-length product is 191.87 mGy*cm The dose indicators for CT are the volume Computed Tomography (CT) Dose Index (CTDIvol) and the Dose Length Product (DLP), and are measured in units of mGy and mGy-cm, respectively. These indicators are not patient dose, but values generated from the CT scanner acquisition factors. The report includes radiation exposure data for exposures received during this examination. FINDINGS: Lower neck: Normal thyroid. Lungs: Bilateral reticular nodular infiltrates predominantly involving the mid upper lung nichole peripherally. Focal areas of consolidation in both upper lung nichole bilaterally measuring on the order 2-3 cm on axial image 21, series 3. Similar areas of consolidation are seen in the left upper to mid lung field which are larger in size best seen on axial image 30, series 3. Heart/Vascular Structures: Normal heart size. No pericardial effusion. Lymph Nodes: No adenopathy Pleura: No pleural effusion or significant pneumothorax. Musculoskeletal: No acute osseous abnormality. Soft tissues: Normal. Upper abdomen: Limited portions of the upper abdomen are unremarkable. IMPRESSION: 1. Bilateral reticular nodular infiltrates predominantly in the mid upper lung nichole peripherally. Additional larger areas of consolidation are seen predominantly in the left lung is discussed above. 2. No pleural Effusions No adenopathy CHEST RADIOGRAPH Indication: sob Technique: Single frontal view of the chest was obtained COMPARISON: XY CHEST XRAY 1 VIEW on DOS: 03/06/24 FINDINGS: Lines and Tubes: None Lungs: Diffuse increased interstitial prominence. Pleura: No effusion. No pneumothorax. Cardiomediastinal contours: Unremarkable Bones: Unremarkable IMPRESSION: Possible viral pneumonia or pulmonary vascular congestion Assessment/Plan Assessment/Plan Assessment Acute hypoxic respiratory failure likely with pneumonia Hyperglycemia patient also using steroids History of diabetes type 2 History of hyperlipidemia History of asthma History of x2 Plan Admit to med surge IV antibiotics-ceftriaxone + azithromycin Solu-Medrol given ED Duo nebs Mag level CT chest ordered D-dimer Manual differential Influenza test COVID test Chest x-ray Hemoglobin A1c ISS and Accu-Cheks UA Respiratory culture Supportive oxygen Diet Home medications reconciled DVT prophylaxis-not indicated patient ambulating PUD prophylaxis-not indicated no history of GERD or GI bleed Discussed plan of care with patient, patient's spouse, and nurse CTA chest originally ordered but patient allergic to shellfish and was requiring EpiPen Special Care Hospitalist to consider Pulmonary consult Plan discussed with: Patient, Spouse My Orders Orders - MARLIN HENAO [employer]PER[employer] Procedure Category Date Status Time Glucose Blood PHA 08/14/24 In Process (Accu-Chek Comfort 11:30 Insulin R (Human) PHA 08/14/24 In Process (Insulin R) 11:30 Dextrose 50% Syringe PHA 08/14/24 In Process 10:15 Urinalysis LAB 08/14/24 Logged 10:[address] 08/14/24 Logged 11:12 Admit ADMIT 08/14/24 Transmitted 11:14 Allergies URBAN 08/14/24 Transmitted 11:14 Code Status CODE 08/14/24 Transmitted 11:14 Ondansetron Hcl PHA 08/14/24 Logged (Zofran) 11:15 Complete Blood Count LAB 08/15/24 Verified 04:00 Comprehensive LAB 08/15/24 Verified Metabolic Panel 04:00 Cardiac DIET 08/14/24 Transmitted Diet-2gna,Lofat,Lochol Lunch Acetaminophen Tablet PHA 08/14/24 Logged (Tylenol Tablet) 11:15 Sequential URBAN 08/14/24 Transmitted Compression Device Nitroglycerin PHA 08/14/24 Logged Sublingual (Ntrostat 11:15 Morphine Sulfate PHA 08/14/24 Logged Injection 11:15 Stat Ekg For Chest [facility] 08/14/24 Transmitted Pain 11:14 Notify Md Of Changes [facility] 08/14/24 Transmitted From Base 11:14 Executive Legal Secretary For [facility] 08/14/24 Transmitted 24 Hours 11:14 Emergency Dysrhythmia [facility] 08/14/24 Transmitted Protocol 11:14 Rhythm Strips Once [facility] 08/14/24 Transmitted Every Shift 11:14 Oxygen By Nasal RT 08/14/24 Transmitted Cannula 11:14 Lipid Panel LAB 08/14/24 Transmitted 11:14 Rapid Influenza A&B LAB 08/14/24 Transmitted 11:14 Urinalysis LAB 08/14/24 Transmitted 11:14 Ceftriaxone 1gm/50ml PHA 08/14/24 Logged D5w (Rocephin) 11:15 Azithromycin 500mg/ PHA 08/14/24 Logged 250ml (Zithromax 50 11:15 (Nf) Ferrous Sulfate PHA 08/16/24 Verified (Ferosul) 10:00 Atorvastatin (Lipitor) PHA 08/14/24 Verified 22:00 Date of Service: Aug 14, 2024 Billing Provider: MARLIN HENAO Common Visit Codes: [id number] INP/OBS CARE (HIGH) MARLIN HENAOP Aug 14, 2024 11:18
[2024-08-14] MEDS: IOHEXOL 300 MG/ML 100ML BOTTLE IJ ONE ×2 (11:20→11:51)
[2024-08-14] MEDS: ACCU-CHEK COMFORT CURVE STRIP VI SCH (11:30)
[2024-08-14 11:31] LABS: Triglycerides 92 mg/dL (< 150)
[2024-08-14 11:32] LABS: LDL Cholesterol 99 mg/dL (< 100)
[2024-08-14 11:33] LABS: Cholesterol 171 mg/dL (< 200); HDL Cholesterol 55 mg/dL (40-59)
[2024-08-14] MEDS: cefTRIAXone 1GM/50ML D5W 50 ML IV SCH (12:00)
[2024-08-14] MEDS: InsuLIN REG 1unit/0.01ml Soln (100units/ml) SC SCH (12:00)
[2024-08-14] MEDS: FERROUS SULFATE 325mg EC TAB PO SCH (12:04)
--- NOTE | 2024-08-14 12:26 | DVH ---
Procedure: CT CHEST WITHOUT CONTRAST Reason for study/Clinical History: POSSIBLE MASS; CHRONIC COUGH Comparison Study: None Exam Date: 08/14/2024 11:35 AM TECHNIQUE: Multidetector CT of the chest was performed from the lung apices to the upper abdomen with out the use of intravenous contract. Axial, coronal and sagittal multiplanar reformats were performed . Radiation Dose Information: CT Dose: CTDI volume is 5.13 mGy. Dose-length product is 191.87 mGy*cm The dose indicators for CT are the volume Computed Tomography (CT) Dose Index (CTDIvol) and the Dose Length Product (DLP), and are measured in units of mGy and mGy-cm, respectively. These indicators are not patient dose, but values generated from the CT scanner acquisition factors. The report includes radiation exposure data for exposures received during this examination. FINDINGS: Lower neck: Normal thyroid. Lungs: Bilateral reticular nodular infiltrates predominantly involving the mid upper lung nichole joselito pherally. Focal areas of consolidation in both upper lung nichole bilaterally measuring on the order 2 -3 cm on axial image 21, series 3. Similar areas of consolidation are seen in the left upper to mid l roberto field which are larger in size best seen on axial image 30, series 3. Heart/Vascular Structures: Normal heart size. No pericardial effusion. Lymph Nodes: No adenopathy Pleura: No pleural effusion or significant pneumothorax. Musculoskeletal: No acute osseous abnormality. Soft tissues: Normal. Upper abdomen: Limited portions of the upper abdomen are unremarkable. IMPRESSION: 1. Bilateral reticular nodular infiltrates predominantly in the mid upper lung nichole peripherally. A dditional larger areas of consolidation are seen predominantly in the left lung is discussed above. 2. No pleural Effusions No adenopathy Radiation optimization: All CT scans at this facility use at least one of these dose optimization herman hniques: automated exposure control mA and/or kV adjustment per patient size (includes targeted exam s where dose is matched to clinical indication) or iterative reconstruction.
[2024-08-14 12:27] VITALS: PULSE 118; RESP 22; O2SAT 93
[2024-08-14] MEDS: AZITHROMYCIN 500MG/ 250ML 250 ML IV SCH (12:46)
[2024-08-14] MEDS ORDERED: MICAFUNGIN SODIUM 100 MG in SODIUM CHL 0.9% 100 ML IV SCH (14:15)
[2024-08-14] MEDS: FLUCONAZOLE 200MG/100ML 100 ML IV ONE (16:08)
[2024-08-14 19:40] VITALS: PULSE 105; RESP 20; O2SAT 95
[2024-08-14] MEDS: ATORVASTATIN 20 MG TAB PO SCH (22:00)
[2024-08-15] VITALS (11 sets, daily range): BP systolic 105–126; BP diastolic 69–87; PULSE 78–105; RESP 16–22; TEMP 97.6; O2SAT 90–100
[2024-08-15] MEDS: ALBUTEROL SULF 2.5 MG/0.5ML(0.5%) NEB SOLN NEB PRN (01:55)
[2024-08-15 04:15] LABS: Urine Bacteria FEW /hpf (None Seen); Urine Blood Negative /uL (Negative); Urine Clarity Clear (Clear); Urine Color Light-Yellow (Yellow); Urine Protein, UAD Negative (Negative); Urine Specific Gravity 1.015 (1.001-1.035); Urine Squamous Epithelial Cell FEW /hpf (<5); Urine Urobilinogen Normal (Negative); Urine WBC 2 /HPF (0-5)
[2024-08-15 04:23] LABS: COVID19 ANTIGEN SOFIA FIA NEGATIVE (NEGATIVE); Rapid Influenza A Negative (Negative); Rapid Influenza B Negative (Negative)
[2024-08-15 04:40] LABS: Basophils # (auto) 0.1 10 ^3/uL (0-0.2); Basophils % (auto) 0.6 % (0.0-2.0); Eosinophils # (auto) 1.3 10 ^3/uL (0-0.8); Eosinophils % (auto) 11.5 % (0.0-7.0); Hematocrit 40.4 % (36.0-46.0); Hemoglobin 13.6 g/dL (12.2-16.2); Lymphocytes % (auto) 17.7 % (10.0-50.0); Mean Corpuscular Hemoglobin 30.4 pg (28.0-32.0); Mean Corpuscular Hgb Conc. 33.6 g/dL (32.0-36.0); Mean Corpuscular Volume 90.6 fL (80.0-100.0); Monocytes # (auto) 0.9 10 ^3/uL (0-1.3); Monocytes % (auto) 7.7 % (0.0-12.0); Neutrophils % (auto) 62.5 % (37.0-80.0); Platelet Count (auto) 298 10^3/uL (140-450); Red Blood Cells 4.47 10^6/uL (4.0-5.20); White Blood Cell 11.2 10^3/uL (4.4-10.8)
[2024-08-15 04:59] LABS: Alanine Aminotransferase 12 U/L (7-40); Albumin 4.3 g/dL (3.2-4.8); Alkaline Phosphatase 74 U/L (46-116); Anion Gap 8 (5-15); Aspartate Aminotransferase 13 U/L (<34); BUN/Creatinine Ratio 16.9 (10.0-20.0); Blood Urea Nitrogen 12 mg/dL (9-23); Calcium 10.2 mg/dL (8.7-10.4); Carbon Dioxide 28 mmol/L (20-31); Chloride 104 mmol/L (98-107); Potassium 4.3 mmol/L (3.5-5.1); Sodium 140 mmol/L (136-145); Total Protein 7.2 g/dL (5.7-8.2)
[2024-08-15 05:00] LABS: Bilirubin, Total 0.4 mg/dL (0.2-1.0); Glucose 229 mg/dL (74-106)
[2024-08-15] MEDS ORDERED: FLUCONAZOLE 200MG/100ML 100 ML IV ONE (10:00)
[2024-08-15] MEDS: FLUCONAZOLE 200MG/100ML 100 ML IV SCH (12:43)
--- NOTE | 2024-08-15 14:27 | DVHPN2 ---
Subjective Patient denies any symptoms other than cough. Reviewed: Care Plan, H&P, Labs, Medications Changes from previous H/P or p: No Changes General: Per HPI Respiratory: Cough, Shortness of breath, Sputum Objective Vitals Vital Signs Date Time Temp Pulse Resp B/P (MAP) Pulse Ox O2 Delivery O2 Flow Rate FiO2 08/15/24 12:00 81 08/15/24 12:00 17 103/62 (76) 90 08/15/24 09:36 Nasal Cannula 3.0 08/15/24 09:36 32 08/15/24 08:00 97.6 97.6 General Appearance: Alert, Oriented X3, Cooperative, No acute distress HEENT: Atraumatic, PERRLA Neck: Carotid [place] Lungs: Other (Wheezing in right upper lung) Cardiovascular: Normal S1, Normal S2 Musculoskeletal: Normal sensory function, Normal motor function Skin: Dry, Intact Psych/Mental Status: Mental status NL, Mood NL Medications Current Medications Medications Dose Ordered Sig/Lacie Route Start Time Stop Time Status Last Admin Dose Admin Diagnostic Test (Pha) 1 strip ACHS 08/14/24 11:30 08/15/24 12:22 1 STRIP Insulin Human Regular ACHS SC 08/14/24 11:30 08/15/24 12:42 8 UNITS Dextrose 50 ml UD PRN IV 08/14/24 10:15 Ondansetron HCl 4 mg Q4HP PRN IV 08/14/24 11:15 Acetaminophen 650 mg Q6HP PRN PO 08/14/24 11:15 Nitroglycerin 0.4 mg Q5MINP PRN SL 08/14/24 11:15 Morphine Sulfate 2 mg Q30M PRN IV 08/14/24 11:15 Ceftriaxone Sodium 50 ml @ 100 mls/hr DAILY@09 IV 08/14/24 11:15 08/15/24 12:21 100 MLS/HR Azithromycin 250 ml @ 125 mls/hr DAILY IV 08/14/24 11:15 08/14/24 12:46 125 MLS/HR Ferrous Sulfate 325 mg EOD PO 08/14/24 11:29 08/14/24 12:04 325 MG Atorvastatin Calcium 40 mg HS PO 08/14/24 22:00 08/14/24 22:00 40 MG Fluconazole 100 ml @ 100 mls/hr 10,11 IV 08/15/24 10:00 08/15/24 13:38 100 MLS/HR Albuterol 2.5 mg Q6H NEB 08/15/24 18:00 UNV Ipratropium [place] 0.5 mg Q6HR NEB 08/15/24 18:00 UNV Temazepam 15 mg HSPRN PRN PO 08/15/24 14:30 UNV Laboratory Results Laboratory Tests 08/15/24 03:47 Chemistry Test 08/15/24 03:47 Albumin 4.3 g/dL (3.2-4.8) Calcium Level 10.2 mg/dL (8.7-10.4) Total Protein 7.2 g/dL (5.7-8.2) LFT Test 08/15/24 03:47 Alanine Aminotransferase (ALT) 12 U/L (7-40) Alkaline Phosphatase 74 U/L (46-116) Aspartate Amino Transferase (AST) 13 U/L (<34) Total Bilirubin 0.4 mg/dL (0.2-1.0) Urinalysis Test 08/15/24 03:55 Urine Color Light-yellow (Yellow) Urine Clarity Clear (Clear) Urine pH 6.0 (5.0-9.0) Urine Specific [place] 1.015 (1.001-1.035) Urine Protein Negative (Negative) Urine Ketones Trace (Negative) Urine Blood Negative /uL (Negative) Urine Nitrite Negative (Negative) Urine Bilirubin Negative (Negative) Urine Urobilinogen Normal mg/dL (Negative) Urine Leukocyte Esterase Negative /uL (Negative) Urine RBC 1 /hpf (0 - 4) Urine Microscopic WBC 2 /HPF (0-5) Urine Squamous Epithelial Cells Few /hpf (<5) Urine Bacteria Few /hpf (None Seen) H Urine Glucose 3+ mg/dL (Normal) H Labs and/or images reviewed: Labs reviewed by me, Image(s) reviewed by me Assessment/Plan Assessment/Plan Impression: -acute hypoxic respiratory failure -multifocal pneumonia -diabetes mellitus Plan: -QuantiFERON gold pending -test for valley fever, Legionella -regular insulin sliding scale -check HIV -bronchodilators -continue antibiotic therapy with Diflucan , Rocephin, azithromycin -repeat labs and chest x-ray in a.m. Total time spent with patient discussing and formulating plan of care: 35 minutes. This medical document was created using an electronic medical record system with Dragon computerized dictation system. Although this document has been carefully reviewed, there may still be some phonetic and typographical errors. These areas are purely typographical due to imperfections of the software programs, and do not reflect any compromise in the patient's medical care. Plan discussed with: Patient, Other (RN) My Orders Orders - PHOEBE MELENDEZ NP Procedure Category Date Status Time Albuterol Medneb PHA 08/15/24 Logged (Ventolin Medneb) 18:00 Ipratropium Medneb PHA 08/15/24 Logged (Atrovent Medneb) 18:00 Hiv 1&2 Antibody LAB 08/15/24 Logged 14:17 Temazepam (Restoril) PHA 08/15/24 Logged 14:30 Date of Service: Aug 15, 2024 Billing Provider: PHOEBE MELENDEZ NP Common Visit Codes: [id number] INP/OBS CARE(HIGH) PHOEBE MELENDEZ NP Aug 15, 2024 14:27
[2024-08-15] MEDS ORDERED: TEMAZEPAM 15 MG CAP PO PRN (14:30)
[2024-08-15 15:10] LABS: Erythrocyte Sedimentation Rate 20 mm/hr (0-20)
--- NOTE | 2024-08-15 16:36 | DVHINCON2 ---
Date of service: Aug 15, 2024 Referring Physician Lisset Wahl NP Reason for Consultation Acute respiratory failure History of Present Illness History Source: Patient Exam Limitations: No limitations HPI Patient is a 48-year old lady with a history of asthma previously established on inhaler therapy who presented with shortness of breath, wheezing and cough x1 we ek. Was seen in the emergency room where she was noted to desaturate < 90% and was placed on supplemental oxygen. Chest x-ray demonstrates atelectasis and congestion, pulmonology was consulted to assist in management. Home Meds Active Scripts Methylprednisolone (Medrol Dosepak) 4 Mg Jorden, 4 MG PO UD, #21 TAB UAD Prov:RICARDO DIAZ 07/22/24 Promethazine-Dm (Promethazine Dm 6.25-15 mg/5Ml) 1 Nati Nati, 5 ML PO TID, #180 ML Prov:RICARDO DIAZ 07/22/24 Levofloxacin Hemihydrate (LEVAQUIN 500 MG) 500 Mg Tab, 1 TAB PO DAILY, #7 TAB Prov:RICARDO DIAZ 07/22/24 Dexamethasone (Decadron) 4 Mg Tb, 4 MG PO BID for 5 Days, #10 TAB Prov:EVELYN MCMAHAN MD 05/02/24 Acetaminophen (Acetaminophen Extra Stren) 500 Mg Tab, 500 MG PO QID for 10 Days, #40 TAB Prov:EVELYN MCMAHAN MD 05/02/24 Diclofenac Potassium (Diclofenac Potassium) 50 Mg Tab, 1 TAB PO TIDP for 10 Days, #30 TAB Prov:EVELYN MCMAHAN MD 05/02/24 Sitagliptin Phosphate (Januvia) 25 Mg Tab, 25 MG PO DAILY for 30 Days, #30 TAB 1 Refill Prov:JOLLY SOUZA MD 03/09/24 Insulin Glargine (Lantus Solostar) 100 Unit/Ml Inj, 25 UNIT SC QAM for 30 Days, #1 INJ 0 Refills Prov:JOLLY SOUZA MD 03/09/24 Insulin Aspart (Insulin Aspart Flexpen) 100 Unit/Ml Inj, 3 UNIT SC TIDWMEALS PRN for 30 Days, #1 INJ 0 Refills take 3 units if pre-meal BG >200 Prov:JOLLY SOUZA MD 03/09/24 Ferrous Sulfate (Ferosul) 325 Mg Tab, 1 TAB PO EOD, #20 TAB 0 Refills Prov:JOLLY SOUZA MD 03/09/24 Reported Medications Rosuvastatin Calcium (Rosuvastatin Calcium) 10 Mg Tab, 1 TAB PO 03/06/24 Past Medical History Cardiac: No pertinent Hx Pulmonary: Asthma Central Nervous System: No pertinent Hx GI: No pertinent Hx Hemotology/Oncology: No pertinent Hx Hepatobiliary: No pertinent Hx Psychiatric: No pertinent Hx Musculoskeletal: No pertinent Hx Rheumotologic: No pertinent Hx Infectious Disease: No peritnent Hx ENT: No pertinent Hx Renal/: No pertinent Hx Endocrine: No pertinent Hx Dermatology: No pertinent Hx Past 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: No pertinent Hx Family History: No pertinent Hx Patient Family History: Asthma G8 MOTHER Smoker: No Hx (Negative) Alocohol: None Drugs: None Lives with: With family Domestic Violence: Neg Review of Systems Constitutional: No symptom reported Ears, Nose, & Throat: No symptom reported Eyes: No symptom reported Pulmonary/Respiratory: Dyspnea, Cough, Other (wheezing ) Cardiovascular: No symptom reported Gastrointestinal: No symptom reported Genitourinary: No symptom reported Musculoskeletal: No symptom reported Skin: No symptom reported Psychiatric: No symptom reported Endocrine: No symptom reported Hemotologic/Lymphatic: No symptom reported H&P Exam Vital Signs Vital Signs Date Time Temp Pulse Resp B/P (MAP) Pulse Ox O2 Delivery O2 Flow Rate FiO2 08/15/24 16:00 118 08/15/24 14:00 19 137/86 (103) 97 08/15/24 09:36 Nasal Cannula 3.0 08/15/24 09:36 32 08/15/24 08:00 97.6 97.6 General Appeara: Well developed, Well nourished, Normal Appearance Head Exam: Normal inspection Neck Exam: Normal inspection, Non-tender, Normal alignment Eye Exam: bilateral eye Normal inspection, bilateral eye PERRL, bilateral eye EOMI Ear Exam: bilateral ear Auricle normal, bilateral ear Canal normal, bilateral ear TM normal Nasal Exam: Normal inspection Mouth: Normal Inspection Pulmonary/Respiratory: Decreased breath sounds Cardiovascular/Chest: Normal inspection Peripheral Pulses: 4+ Radial (R), 4+ Radial (L), 4+ Brachial (R), 4+ Brachial (L) Abdominal Exam: Normal bowel sounds Labs/Xrays Labs Test 08/15/24 15:40 08/15/24 12:28 08/15/24 03:55 08/15/24 03:50 Range/Units POC Glucose 311 H 70-106 mg/dl Urine Color Light-yellow Yellow Urine Clarity Clear Clear Urine pH 6.0 5.0-9.0 Urine Specific [place] 1.015 1.001-1.035 Urine Protein Negative Negative Urine Ketones Trace Negative Urine Blood Negative Negative /uL Urine Nitrite Negative Negative Urine Bilirubin Negative Negative Urine Urobilinogen Normal Negative mg/dL Urine Leukocyte Esterase Negative Negative /uL Urine RBC 1 0 - 4 /hpf Urine Microscopic WBC 2 0-5 /HPF Urine Squamous Epithelial Cells Few <5 /hpf Urine Bacteria Few H None Seen /hpf Urine Glucose 3+ H Normal mg/dL Influenza Type A Antigen Negative Negative Influenza Type B Antigen Negative Negative SARS-CoV-2 Antigen (Rapid) Negative NEGATIVE Test 08/15/24 03:47 08/14/24 14:26 08/14/24 06:49 Range/Units White Blood Count 11.2 #H 4.4-10.8 10^3/uL Red Blood Count 4.47 4.0-5.20 10^6/uL Hemoglobin 13.6 12.2-16.2 g/dL Hematocrit 40.4 36.0-46.0 % Mean Corpuscular Volume 90.6 80.0-100.0 fL Mean Corpuscular Hemoglobin 30.4 28.0-32.0 pg Mean Corpuscular Hemoglobin Concent 33.6 32.0-36.0 g/dL Red Cell Distribution Width 14.0 11.8-14.3 % Platelet Count 298 140-450 10^3/uL Mean Platelet Volume 8.4 6.9-10.8 fL Neutrophils (%) (Auto) 62.5 37.0-80.0 % Lymphocytes (%) (Auto) 17.7 10.0-50.0 % Monocytes (%) (Auto) 7.7 0.0-12.0 % Eosinophils (%) (Auto) 11.5 H 0.0-7.0 % Basophils (%) (Auto) 0.6 0.0-2.0 % Neutrophils # (Auto) 7.0 1.6-8.6 10 ^3/uL Lymphocytes # (Auto) 2.0 0.4-5.4 10 ^3/uL Monocytes # (Auto) 0.9 0-1.3 10 ^3/uL Eosinophils # (Auto) 1.3 H 0-0.8 10 ^3/uL Basophils # (Auto) 0.1 0-0.2 10 ^3/uL Nucleated Red Blood Cells 0.0 % Erythrocyte Sedimentation Rate 20 0-20 mm/hr Sodium Level 140 136-145 mmol/L Potassium Level 4.3 3.5-5.1 mmol/L Chloride Level 104 98-107 mmol/L Carbon Dioxide Level 28 20-31 mmol/L Anion Gap 8 5-15 Blood Urea Nitrogen 12 9-23 mg/dL Creatinine 0.71 0.550-1.02 mg/dL Glomerular Filtration Rate Calc 104 >90 mL/min BUN/Creatinine Ratio 16.9 10.0-20.0 Serum Glucose 229 H 74-106 mg/dL Calcium Level 10.2 8.7-10.4 mg/dL Total Bilirubin 0.4 0.2-1.0 mg/dL Aspartate Amino Transferase (AST) 13 <34 U/L Alanine Aminotransferase (ALT) 12 7-40 U/L Alkaline Phosphatase 74 46-116 U/L C-Reactive Protein High Sensitivity 0.62 <1.0 mg/dL Total Protein 7.2 5.7-8.2 g/dL Albumin 4.3 3.2-4.8 g/dL HIV (1&2) Antibody Negative Negative Differential Total Cells Counted 100.0 100 Neutrophils % (Manual) 34 L 37.0-80.0 Band Neutrophils % (Manual) 0 Lymphocytes % (Manual) 22 10.0-50.0 Monocytes % (Manual) 4 0-12 Eosinophils % (Manual) 40 H 0-7 Basophils % (Manual) 0 0.0-2.0 Metamyelocytes % (manual) 0 Myelocytes % (Manual) 0 Promyelocytes % (Manual) 0 Blast Cells % (Manual) 0 Reactive Lymphocytes 0 Platelet Estimate Adequate D-Dimer, Quantitative 0.30 0.0-0.49 mg/L FEU Hemoglobin A1c 8.4 H <5.7 % A1C Lactate Dehydrogenase 222 120-246 U/L Triglycerides Level 92 < 150 mg/dL Cholesterol Level 171 < 200 mg/dL LDL Cholesterol 99 < 100 mg/dL HDL Cholesterol 55 40-59 mg/dL Assessment/Plan Plan Impression Acute hypoxemic respiratory failure Pulmonary congestion Atelectasis Asthma Patient seen and examined Events Low oxygen requirements On 2 liters nasal cannula Vital signs stable Labs and imaging reviewed Chest x-ray demonstrates atelectasis, congestion and atypical pneumonia Management Supplemental oxygen Titrate to maintain sats 90% or above Incentive spirometry Broad spectrum antibiotics De-escalate based on cultures Bronchodilators Monitor renal function Monitor electrolytes Supplement as needed DVT prophylaxis Plan discussed with: Patient CARL TYLER MD Aug 15, 2024 16:36
[2024-08-15] MEDS: ALBUTEROL SULF 2.5 MG/0.5ML(0.5%) NEB SOLN NEB SCH (17:24)
[2024-08-15] MEDS: IPRATROPIUM BROM 0.5 MG/2.5ML INH SOL NEB SCH (17:24)
[2024-08-16] VITALS (18 sets, daily range): BP systolic 114–145; BP diastolic 75–86; PULSE 87–108; RESP 16–20; TEMP 97.1–97.8; O2SAT 90–100
[2024-08-16 08:08] LABS: Hematocrit 43.4 % (36.0-46.0); Hemoglobin 14.7 g/dL (12.2-16.2); Mean Corpuscular Hemoglobin 30.8 pg (28.0-32.0); Mean Corpuscular Hgb Conc. 33.8 g/dL (32.0-36.0); Platelet Count (auto) 329 10^3/uL (140-450); Red Blood Cells 4.77 10^6/uL (4.0-5.20); Red Cell Distribution Width 14.5 % (11.8-14.3); White Blood Cell 10.3 10^3/uL (4.4-10.8)
[2024-08-16 08:17] LABS: Anion Gap 11 (5-15); Carbon Dioxide 28 mmol/L (20-31); Chloride 100 mmol/L (98-107); Potassium 4.1 mmol/L (3.5-5.1); Sodium 139 mmol/L (136-145)
[2024-08-16 08:18] LABS: Band Neutrophils % (manual) 0; Basophils % (manual) 0 (0.0-2.0); Blast Cells 0; Metamyelocytes % 0; Myelocytes % 0; Promyelocytes % 0; Reactive Lymphocytes 0
[2024-08-16 08:23] LABS: BUN/Creatinine Ratio 18.1 (10.0-20.0); Blood Urea Nitrogen 15 mg/dL (9-23)
[2024-08-16 08:25] LABS: Glucose 298 mg/dL (74-106)
[2024-08-16 09:11] LABS: Eosinophils % (manual) 32 (0-7); Lymphocytes % (manual) 21 (10.0-50.0); Monocytes % (manual) 6 (0-12); Platelet Estimate Adequate
[2024-08-16] MEDS: methylPREDNISolone SOD SUCC 125 MG/2 ML VL IV SCH (10:45)
[2024-08-16] MEDS ORDERED: DEXTROSE (50%) 50ML SYRG IV PRN (10:45)
[2024-08-16 11:13] LABS: Hepatitis B Surface Antigen Negative (Negative); Hepatitis C Antibody Negative (Negative)
[2024-08-16] MEDS: ACCU-CHEK COMFORT CURVE STRIP VI SCH (11:51)
[2024-08-16] MEDS: InsuLIN REG 1unit/0.01ml Soln (100units/ml) SC SCH ×2 (11:54→21:52)
--- NOTE | 2024-08-16 14:14 | DVHPN2 ---
Subjective Patient denies any symptoms other than cough. Reviewed: Care Plan, H&P, Labs, Medications Changes from previous H/P or p: No Changes General: Per HPI Respiratory: Cough, Shortness of breath, Sputum Objective Vitals Vital Signs Date Time Temp Pulse Resp B/P (MAP) Pulse Ox O2 Delivery O2 Flow Rate FiO2 08/16/24 13:00 97.8 96 18 125/80 (95) 98 97.8 08/16/24 11:53 Nasal Cannula* 2 28 Intake/Output Intake and Output 08/16/24 07:00 Intake Total 800 ml Balance 800 ml Intake Oral 300 ml IV Total 500 ml # Voids 2 General Appearance: Alert, Oriented X3, Cooperative, No acute distress HEENT: Atraumatic, PERRLA Neck: Carotid [place] Lungs: Other (Wheezing in right upper lung) Cardiovascular: Normal S1, Normal S2 Musculoskeletal: Normal sensory function, Normal motor function Skin: Dry, Intact Psych/Mental Status: Mental status NL, Mood NL Medications Current Medications Medications Dose Ordered Sig/Lacie Route Start Time Stop Time Status Last Admin Dose Admin Ondansetron HCl 4 mg Q4HP PRN IV 08/14/24 11:15 Acetaminophen 650 mg Q6HP PRN PO 08/14/24 11:15 Nitroglycerin 0.4 mg Q5MINP PRN SL 08/14/24 11:15 Morphine Sulfate 2 mg Q30M PRN IV 08/14/24 11:15 Ceftriaxone Sodium 50 ml @ 100 mls/hr DAILY@09 IV 08/14/24 11:15 08/16/24 08:49 100 MLS/HR Azithromycin 250 ml @ 125 mls/hr DAILY IV 08/14/24 11:15 08/16/24 10:05 125 MLS/HR Ferrous Sulfate 325 mg EOD PO 08/14/24 11:29 08/16/24 08:49 325 MG Atorvastatin Calcium 40 mg HS PO 08/14/24 22:00 08/15/24 21:38 40 MG Fluconazole 100 ml @ 100 mls/hr 10,11 IV 08/15/24 10:00 08/16/24 10:00 100 MLS/HR Albuterol 2.5 mg Q6H NEB 08/15/24 18:00 08/16/24 11:52 2.5 MG Ipratropium [place] 0.5 mg Q6HR NEB 08/15/24 18:00 08/16/24 11:53 0.5 MG Temazepam 15 mg HSPRN PRN PO 08/15/24 14:30 Methylprednisolone Sodium Succinate 60 mg BID IV 08/16/24 10:45 08/16/24 10:45 60 MG Budesonide 0.5 mg BID NEB 08/16/24 10:45 Diagnostic Test (Pha) 1 strip ACHS 08/16/24 11:30 08/16/24 11:51 1 STRIP Insulin Human Regular HS SC 08/16/24 22:00 Insulin Human Regular AC SC 08/16/24 11:30 08/16/24 11:54 12 UNITS Dextrose 50 ml UD PRN IV 08/16/24 10:45 Laboratory Results Laboratory Tests 08/16/24 06:40 Chemistry Test 08/16/24 06:40 Calcium Level 10.0 mg/dL (8.7-10.4) Urinalysis Test 08/15/24 03:55 Urine Color Light-yellow (Yellow) Urine Clarity Clear (Clear) Urine pH 6.0 (5.0-9.0) Urine Specific [place] 1.015 (1.001-1.035) Urine Protein Negative (Negative) Urine Ketones Trace (Negative) Urine Blood Negative /uL (Negative) Urine Nitrite Negative (Negative) Urine Bilirubin Negative (Negative) Urine Urobilinogen Normal mg/dL (Negative) Urine Leukocyte Esterase Negative /uL (Negative) Urine RBC 1 /hpf (0 - 4) Urine Microscopic WBC 2 /HPF (0-5) Urine Squamous Epithelial Cells Few /hpf (<5) Urine Bacteria Few /hpf (None Seen) H Urine Glucose 3+ mg/dL (Normal) H Labs and/or images reviewed: Labs reviewed by me, Image(s) reviewed by me Assessment/Plan Assessment/Plan Impression: -acute hypoxic respiratory failure -multifocal pneumonia -diabetes mellitus Plan: Events: No changes in symptoms. No events overnight. -start IV steroids, Pulmicort -test for valley fever, Legionella -regular insulin sliding scale -bronchodilators -continue antibiotic therapy with Diflucan , Rocephin, azithromycin -repeat labs and consider repeat CT scan if symptoms do not improve Total time spent with patient discussing and formulating plan of care: 35 minutes. This medical document was created using an electronic medical record system with [employer] system. Although this document has been carefully reviewed, there may still be some phonetic and typographical errors. These areas are purely typographical due to imperfections of the software programs, and do not reflect any compromise in the patient's medical care. Plan discussed with: Patient, Other (RN) My Orders Orders - PHOEBE MELENDEZ NP Procedure Category Date Status Time Albuterol Medneb PHA 08/15/24 In Process (Ventolin Medneb) 18:00 Ipratropium Medneb PHA 08/15/24 In Process (Atrovent Medneb) 18:00 Temazepam (Restoril) PHA 08/15/24 In Process 14:30 Legionella LAB 08/15/24 In Process Pneumophila Abs 14:25 Methylprednisolone PHA 08/16/24 In Process Sod Succ (Solu Medrol 10:45 Budesonide PHA 08/16/24 In Process (Inhalation) 10:45 Glucose Blood PHA 08/16/24 In Process (Accu-Chek Comfort 11:30 Insulin R (Human) PHA 08/16/24 In Process (Insulin R) 22:00 Insulin R (Human) PHA 08/16/24 In Process (Insulin R) 11:30 Dextrose 50% Syringe PHA 08/16/24 In Process 10:45 Anca Panel LAB 08/16/24 Logged 13:53 * Infectious Tc- CONS 08/16/24 Transmitted Re Rojas 13:55 Date of Service: Aug 16, 2024 Billing Provider: PHOEBE MELENDEZ NP Common Visit Codes: [id number] INP/OBS CARE(HIGH) PHOEBE MELENDEZ NP Aug 16, 2024 14:14
--- NOTE | 2024-08-16 18:42 | DVHPN2 ---
Progress Note - Dictate Date Seen: Aug 16, 2024 Medical Necessity Reason Pt with a Central, PICC or Fol: No vital signs Vital Sign Date Time Temp Pulse Resp B/P (MAP) Pulse Ox O2 Delivery O2 Flow Rate FiO2 08/16/24 16:53 97.8 101 18 126/75 (92) 90 97.8 08/16/24 11:53 Nasal Cannula* 2 28 Total Intake and Output 08/15/24 08/15/24 08/16/24 15:00 23:00 07:00 Intake Total 250 ml 250 ml 300 ml Balance 250 ml 250 ml 300 ml medications Current Medications Medications Dose Ordered Sig/Lacie Route Start Time Stop Time Status Last Admin Dose Admin Ondansetron HCl 4 mg Q4HP PRN IV 08/14/24 11:15 Acetaminophen 650 mg Q6HP PRN PO 08/14/24 11:15 Nitroglycerin 0.4 mg Q5MINP PRN SL 08/14/24 11:15 Morphine Sulfate 2 mg Q30M PRN IV 08/14/24 11:15 Ceftriaxone Sodium 50 ml @ 100 mls/hr DAILY@09 IV 08/14/24 11:15 08/16/24 08:49 100 MLS/HR Azithromycin 250 ml @ 125 mls/hr DAILY IV 08/14/24 11:15 08/16/24 10:05 125 MLS/HR Ferrous Sulfate 325 mg EOD PO 08/14/24 11:29 08/16/24 08:49 325 MG Atorvastatin Calcium 40 mg HS PO 08/14/24 22:00 08/15/24 21:38 40 MG Fluconazole 100 ml @ 100 mls/hr 10,11 IV 08/15/24 10:00 08/16/24 10:00 100 MLS/HR Albuterol 2.5 mg Q6H NEB 08/15/24 18:00 08/16/24 11:52 2.5 MG Ipratropium [place] 0.5 mg Q6HR NEB 08/15/24 18:00 08/16/24 11:53 0.5 MG Temazepam 15 mg HSPRN PRN PO 08/15/24 14:30 Methylprednisolone Sodium Succinate 60 mg BID IV 08/16/24 10:45 08/16/24 10:45 60 MG Budesonide 0.5 mg BID NEB 08/16/24 10:45 Diagnostic Test (Pha) 1 strip ACHS 08/16/24 11:30 08/16/24 17:16 1 STRIP Insulin Human Regular HS SC 08/16/24 22:00 Insulin Human Regular AC SC 08/16/24 11:30 08/16/24 17:27 12 UNITS Dextrose 50 ml UD PRN IV 08/16/24 10:45 laboratory and microbiology Laboratory Tests 08/16/24 06:40 Test 08/16/24 06:40 Range/Units Serum Glucose 298 H 74-106 mg/dL Assessment/Plan Impression Acute hypoxemic respiratory failure Pulmonary congestion Atelectasis Asthma Patient seen and examined Events Low oxygen requirements On 2 liters nasal cannula No acute events Patient has history of asthma 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 Albendazole treatment Case discussed with GUILHERME [place] Management Supplemental oxygen Titrate to maintain sats 90% or above Incentive spirometry Broad spectrum antibiotics De-escalate based on cultures Bronchodilators Monitor renal function Monitor electrolytes Supplement as needed Patient appears to have eosinophilic asthma Eosinophil count elevated 1.3 Case discussed with GUILHERME Ed[place]s Patient will require further to rule out conditions such as Churg-Gene Syndrome Okay to de-isolate patient DVT prophylaxis Plan discussed with: Patient CARL TYLER MD Aug 16, 2024 18:42
[2024-08-16] MEDS: BUDESONIDE (INHALATION) 0.5 MG/2 ML NEB NEB SCH (22:00)
[2024-08-17] VITALS (15 sets, daily range): BP systolic 102–123; BP diastolic 71–81; PULSE 96–118; RESP 16–20; TEMP 97.1–98.1; O2SAT 90–100
[2024-08-17] MEDS ORDERED: DEXTROSE (50%) 50ML SYRG IV PRN (09:00)
[2024-08-17] MEDS: predniSONE 20 MG TAB PO SCH (10:03)
[2024-08-17] MEDS: ACCU-CHEK COMFORT CURVE STRIP VI SCH (12:06)
[2024-08-17] MEDS: InsuLIN REG 1unit/0.01ml Soln (100units/ml) SC SCH (12:08)
[2024-08-17] MEDS: SODIUM CHLORIDE 0.9% 1,000 ML IV ONE (13:42)
--- NOTE | 2024-08-17 14:16 | DVHPN2 ---
Progress Note - Dictate Date Seen: Aug 17, 2024 Medical Necessity Reason Pt with a Central, PICC or Fol: No vital signs Vital Sign Date Time Temp Pulse Resp B/P (MAP) Pulse Ox O2 Delivery O2 Flow Rate FiO2 08/17/24 11:28 102 16 100 08/17/24 11:23 Room Air* 0 21 08/17/24 09:00 97.6 123/81 (95) 97.6 Total Intake and Output 08/16/24 08/16/24 08/17/24 15:00 23:00 07:00 Intake Total 200 ml 2650 ml 900 ml Balance 200 ml 2650 ml 900 ml medications Current Medications Medications Dose Ordered Sig/Lacie Route Start Time Stop Time Status Last Admin Dose Admin Ondansetron HCl 4 mg Q4HP PRN IV 08/14/24 11:15 Acetaminophen 650 mg Q6HP PRN PO 08/14/24 11:15 Nitroglycerin 0.4 mg Q5MINP PRN SL 08/14/24 11:15 Morphine Sulfate 2 mg Q30M PRN IV 08/14/24 11:15 Ceftriaxone Sodium 50 ml @ 100 mls/hr DAILY@09 IV 08/14/24 11:15 08/17/24 09:06 100 MLS/HR Azithromycin 250 ml @ 125 mls/hr DAILY IV 08/14/24 11:15 08/17/24 10:03 125 MLS/HR Ferrous Sulfate 325 mg EOD PO 08/14/24 11:29 08/16/24 08:49 325 MG Atorvastatin Calcium 40 mg HS PO 08/14/24 22:00 08/16/24 21:51 40 MG Fluconazole 100 ml @ 100 mls/hr 10,11 IV 08/15/24 10:00 08/17/24 11:13 100 MLS/HR Albuterol 2.5 mg Q6H NEB 08/15/24 18:00 08/17/24 11:23 2.5 MG Ipratropium [place] 0.5 mg Q6HR NEB 08/15/24 18:00 08/17/24 11:23 0.5 MG Temazepam 15 mg HSPRN PRN PO 08/15/24 14:30 Budesonide 0.5 mg BID NEB 08/16/24 10:45 08/17/24 07:01 0.5 MG Prednisone 40 mg DAILY PO 08/17/24 10:00 08/17/24 10:03 40 MG Diagnostic Test (Pha) 1 strip IQ4HR 08/17/24 12:00 08/17/24 12:06 1 STRIP Insulin Human Regular IQ4HR SC 08/17/24 12:00 08/17/24 12:08 15 UNITS Dextrose 50 ml UD PRN IV 08/17/24 09:00 laboratory and microbiology Laboratory Tests 08/16/24 06:40 Test 08/16/24 06:40 Range/Units Serum Glucose 298 H 74-106 mg/dL Assessment/Plan Impression Acute hypoxemic respiratory failure Pulmonary congestion Atelectasis Asthma Patient seen and examined Events Low oxygen requirements On 2 liters nasal cannula Continues to improve 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 Eosinophil count elevated 1.3 Pt also reports recent trip to [place] Case discussed with GUILHERME [place] Management Supplemental oxygen Titrate to maintain sats 90% or above Incentive spirometry Continue antibiotics F/u cultures Bronchodilators Continue steroids Transition to Prednisone with taper Monitor renal function Monitor electrolytes Supplement as needed Patient appears to have eosinophilic asthma Eosinophil count elevated 1.3 Case discussed with GUILHERME [place] Patient will require further to rule out conditions such as Churg-Gene Syndrome DVT prophylaxis Dietary Evaluation Review Comments: 1) CCHO 60gm + 2gm Na diet 2) Refer to CDE on DC Expected Outcomes/Goals: blood glucose under control Fu 3-5 days Plan discussed with: Patient CARL TYLER MD Aug 17, 2024 14:16
[2024-08-17 14:39] LABS: Anion Gap 11 (5-15); Carbon Dioxide 26 mmol/L (20-31); Chloride 99 mmol/L (98-107)
[2024-08-17 14:45] LABS: BUN/Creatinine Ratio 13.4 (10.0-20.0); Blood Urea Nitrogen 13 mg/dL (9-23)
[2024-08-17 14:51] LABS: Calcium 10.4 mg/dL (8.7-10.4); Glucose 364 mg/dL (74-106); Sodium 136 mmol/L (136-145)
--- NOTE | 2024-08-17 15:02 | DVHPN2 ---
Subjective Patient denies any symptoms other than cough. Reviewed: Care Plan, H&P, Labs, Medications Changes from previous H/P or p: No Changes General: Per HPI Respiratory: Cough, Shortness of breath, Sputum Objective Vitals Vital Signs Date Time Temp Pulse Resp B/P (MAP) Pulse Ox O2 Delivery O2 Flow Rate FiO2 08/17/24 11:28 102 16 100 08/17/24 11:23 Room Air* 0 21 08/17/24 09:00 97.6 123/81 (95) 97.6 Intake/Output Intake and Output 08/17/24 07:00 Intake Total 3750 ml Balance 3750 ml Intake Oral 3450 ml IV Total 300 ml # Voids 6 General Appearance: Alert, Oriented X3, Cooperative, No acute distress HEENT: Atraumatic, PERRLA Neck: Carotid [place] Lungs: Other (Wheezing in right upper lung) Cardiovascular: Normal S1, Normal S2 Abdomen: Normal bowel sounds, Soft Musculoskeletal: Normal sensory function, Normal motor function Skin: Dry, Intact Psych/Mental Status: Mental status NL, Mood NL Medications Current Medications Medications Dose Ordered Sig/Lacie Route Start Time Stop Time Status Last Admin Dose Admin Ondansetron HCl 4 mg Q4HP PRN IV 08/14/24 11:15 Acetaminophen 650 mg Q6HP PRN PO 08/14/24 11:15 Nitroglycerin 0.4 mg Q5MINP PRN SL 08/14/24 11:15 Morphine Sulfate 2 mg Q30M PRN IV 08/14/24 11:15 Ceftriaxone Sodium 50 ml @ 100 mls/hr DAILY@09 IV 08/14/24 11:15 08/17/24 09:06 100 MLS/HR Azithromycin 250 ml @ 125 mls/hr DAILY IV 08/14/24 11:15 08/17/24 10:03 125 MLS/HR Ferrous Sulfate 325 mg EOD PO 08/14/24 11:29 08/16/24 08:49 325 MG Atorvastatin Calcium 40 mg HS PO 08/14/24 22:00 08/16/24 21:51 40 MG Fluconazole 100 ml @ 100 mls/hr 10,11 IV 08/15/24 10:00 08/17/24 11:13 100 MLS/HR Albuterol 2.5 mg Q6H NEB 08/15/24 18:00 08/17/24 11:23 2.5 MG Ipratropium [place] 0.5 mg Q6HR NEB 08/15/24 18:00 08/17/24 11:23 0.5 MG Temazepam 15 mg HSPRN PRN PO 08/15/24 14:30 Budesonide 0.5 mg BID NEB 08/16/24 10:45 08/17/24 07:01 0.5 MG Prednisone 40 mg DAILY PO 08/17/24 10:00 08/17/24 10:03 40 MG Diagnostic Test (Pha) 1 strip IQ4HR 08/17/24 12:00 08/17/24 12:06 1 STRIP Insulin Human Regular IQ4HR SC 08/17/24 12:00 08/17/24 12:08 15 UNITS Dextrose 50 ml UD PRN IV 08/17/24 09:00 Laboratory Results Laboratory Tests 08/16/24 06:40 08/17/24 14:08 Chemistry Test 08/17/24 14:08 Calcium Level 10.4 mg/dL (8.7-10.4) Urinalysis Test 08/15/24 03:55 Urine Color Light-yellow (Yellow) Urine Clarity Clear (Clear) Urine pH 6.0 (5.0-9.0) Urine Specific [place] 1.015 (1.001-1.035) Urine Protein Negative (Negative) Urine Ketones Trace (Negative) Urine Blood Negative /uL (Negative) Urine Nitrite Negative (Negative) Urine Bilirubin Negative (Negative) Urine Urobilinogen Normal mg/dL (Negative) Urine Leukocyte Esterase Negative /uL (Negative) Urine RBC 1 /hpf (0 - 4) Urine Microscopic WBC 2 /HPF (0-5) Urine Squamous Epithelial Cells Few /hpf (<5) Urine Bacteria Few /hpf (None Seen) H Urine Glucose 3+ mg/dL (Normal) H Labs and/or images reviewed: Labs reviewed by me, Image(s) reviewed by me Assessment/Plan Assessment/Plan Impression: -acute hypoxic respiratory failure -multifocal pneumonia -diabetes mellitus Plan: Events: Patient now on room air. Reports that her dyspnea has improved with ambulation. Blood sugars elevated secondary to steroids -change to prednisone 40 mg p.o. daily -test for valley fever, Legionella: Pending -ID consultation, pending -regular insulin sliding scale -bronchodilators -continue antibiotic therapy with Diflucan , Rocephin, azithromycin -repeat labs and consider repeat CT scan if symptoms do not improve Total time spent with patient discussing and formulating plan of care: 35 minutes. This medical document was created using an electronic medical record system with [employer] dictation system. Although this document has been carefully reviewed, there may still be some phonetic and typographical errors. These areas are purely typographical due to imperfections of the software programs, and do not reflect any compromise in the patient's medical care. Plan discussed with: Patient, Other (RN) My Orders Orders - PHOEBE MELENDEZ NP Procedure Category Date Status Time Communication Order ORDERS 08/16/24 Transmitted 18:19 Prednisone Tablet PHA 08/17/24 In Process 10:00 Glucose Blood PHA 08/17/24 In Process (Accu-Chek Comfort 12:00 Insulin R (Human) PHA 08/17/24 In Process (Insulin R) 12:00 Dextrose 50% Syringe PHA 08/17/24 In Process 09:00 Sodium Chloride 0.9% PHA 08/17/24 In Process 12:45 Date of Service: Aug 17, 2024 Billing Provider: PHOEBE MELENDEZ NP Common Visit Codes: [id number] INP/OBS CARE(HIGH) PHOEBE MELENDEZ NP Aug 17, 2024 15:02
--- NOTE | 2024-08-17 16:12 | DVH ---
CHEST RADIOGRAPH Indication: pna Technique: Single frontal view of the chest was obtained Comparison: XY CHEST PORTABLE on DOS: 08/14/24, XY CHEST XRAY 1 VIEW on DOS: 03/06/24 FINDINGS: Lines and Tubes: None Lungs: No focal consolidation. Pleura: No effusion. No pneumothorax. Cardiomediastinal contours: Unremarkable Bones: No acute osseous abnormality. IMPRESSION: 1. No acute cardiopulmonary disease. HS:Y
--- NOTE | 2024-08-17 16:50 | DVHCONRES ---
Date Seen: Aug 17, 2024 Resident Creating Document: KI SHARP RESIDENT Referring Physician Celestino Reason for Consultation Eosinophilic pneumonia History of Present Illness This is a 48-year-old male with past medical history of type 2 diabetes mellitus, asthma who presented to the ED with chief complaint of shortness of breaths on exertion associated with cough for 2.5 months. The patient states that the cough has been going on for two months and have and has been intermittent on and off. Patient states that last week she started feeling more tired than usual and started experiencing shortness of breath with minimal exertion which prompted visit to the ED. the patient also reports that she went to [facility] on March of 2024 and subsequently went last month to [facility]. Patient reports that while she was in [facility] on March of 2024 she was admitted to the ICU for two days due to abdominal discomfort associated with persistent vomiting. Patient reported that she did not had any lung disease at that time. 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 The patient denies fever/chills, chest pain, weight loss, abdominal pain or any other additional symptoms aside from shortness of breaths and cough. The patient denies smoking or doing any type of drugs. On my examination, the patient is currently on room air without respiratory distress. Patient has very minimal crackles on left lung field but otherwise unremarkable. Initial chest x-ray was grossly unremarkable but CT scan of the chest showed bilateral reticular nodular infiltrates predominantly in the mid upper lung nichole peripherally. There were also large areas of consolidation predominantly in the left lung but no pleural effusion or adenopathy. Initial labs were showing mild leukocytosis at 11.3 with eosinophilia. Patient was tested for COVID, flu, HIV and hepatitis panel which all came back negative. CRP and ESR are both on normal range. The patient was started on IV ceftriaxone, azithromycin and fluconazole. Past Medical History Type 2 diabetes mellitus, asthma Past 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 Reported 2 C-sections Family History: Asthma G8 MOTHER Family History Noncontributory Social History Denies alcohol consumption, drugs or smoking. Allergies: Coded Allergies: Shellfish Allergy (Verified Allergy, Severe, 07/22/24) Home Meds Active Scripts Insulin Aspart (Insulin Aspart Flexpen) 100 Unit/Ml Inj, 3 UNIT SC AC for 30 Days, #3 INJ AC coverage while on prednisone Blood sugars 200-300, 3 units 301-400, 5 units 401 and higher, 8 units and call provider or go to emergency room Prov:PHOEBE MELENDEZ NP 08/19/24 Prednisone (Prednisone) 20 Mg Tab, 20 MG PO DAILY for 14 Days, #21 MG Prednisone 40 mg p.o. daily x7 days then prednisone 20 mg p.o. daily x7 days Prov:PHOEBE MELENDEZ NP 08/18/24 Praziquantel (Praziquantel) 600 Mg Tab, 600 MG PO ONCE for 1 Day, #1 TAB Prov:PHOEBE MELENDEZ NP 08/18/24 Cefdinir (Cefdinir) 300 Mg Cap, 1 CAP PO BID for 7 Days, #14 CAP Prov:PHOEBE MELENDEZ NP 08/18/24 Cefdinir (Cefdinir) 300 Mg Cap, 1 CAP PO BID for 7 Days, #14 CAP Prov:PHOEBE MELENDEZ NP 08/18/24 Methylprednisolone (Medrol Dosepak) 4 Mg Jorden, 4 MG PO UD, #21 TAB UAD Prov:RICARDO DIAZ 07/22/24 Promethazine-Dm (Promethazine Dm 6.25-15 mg/5Ml) 1 Nati Nati, 5 ML PO TID, #180 ML Prov:RICARDO DIAZ 07/22/24 Levofloxacin Hemihydrate (LEVAQUIN 500 MG) 500 Mg Tab, 1 TAB PO DAILY, #7 TAB Prov:RICARDO DIAZ 07/22/24 Dexamethasone (Decadron) 4 Mg Tb, 4 MG PO BID for 5 Days, #10 TAB Prov:EVELYN MCMAHAN MD 05/02/24 Acetaminophen (Acetaminophen Extra Stren) 500 Mg Tab, 500 MG PO QID for 10 Days, #40 TAB Prov:EVELYN MCMAHAN MD 05/02/24 Diclofenac Potassium (Diclofenac Potassium) 50 Mg Tab, 1 TAB PO TIDP for 10 Days, #30 TAB Prov:EVELYN MCMAHAN MD 05/02/24 Sitagliptin Phosphate (Januvia) 25 Mg Tab, 25 MG PO DAILY for 30 Days, #30 TAB 1 Refill Prov:JOLLY SOUZA MD 03/09/24 Insulin Glargine (Lantus Solostar) 100 Unit/Ml Inj, 25 UNIT SC QAM for 30 Days, #1 INJ 0 Refills Prov:JOLLY SOUZA MD 03/09/24 Insulin Aspart (Insulin Aspart Flexpen) 100 Unit/Ml Inj, 3 UNIT SC TIDWMEALS PRN for 30 Days, #1 INJ 0 Refills take 3 units if pre-meal BG >200 Prov:JOLLY SOUZA MD 03/09/24 Ferrous Sulfate (Ferosul) 325 Mg Tab, 1 TAB PO EOD, #20 TAB 0 Refills Prov:JOLLY SOUZA MD 03/09/24 Reported Medications Rosuvastatin Calcium (Rosuvastatin Calcium) 10 Mg Tab, 1 TAB PO 03/06/24 Current Medications Current Medications Medications (Trade) Dose Ordered Sig/Lacie Route PRN Reason Start Time Stop Time Status Last Admin Insulin Human Regular (InsuLIN R) HS IN 08/16/24 22:00 08/17/24 08:57 DC 08/16/24 21:52 Prednisone 40 mg DAILY PO 08/17/24 10:00 08/17/24 10:03 Diagnostic Test (Pha) (Accu-Chek Comfort Curve T) 1 strip IQ4HR 08/17/24 12:00 08/17/24 12:06 Insulin Human Regular (InsuLIN R) IQ4HR SC 08/17/24 12:00 08/17/24 12:08 Dextrose 50 ml UD PRN IV Blood Sugar LESS THAN 60 08/17/24 09:00 Insulin Glargine (Lantus) 15 units HS IN 08/17/24 22:00 Review of Systems ROS Constitutional: Denies weight loss, fever and chills. HEENT: Denies changes in vision and hearing. Respiratory: Denies shortness of breath but reports minimal cough Cardiovascular: Denies chest discomfort or palpitations GI: Denies abdominal pain, nausea, vomiting and diarrhea. : Denies dysuria and urinary frequency. Musculoskeletal: Denies myalgias and joint pain Skin: Denies rash and pruritus. Neurological: Denies dizziness, headache, vision or hearing problems Vital Signs Vital Signs Date Time Temp Pulse Resp B/P (MAP) Pulse Ox O2 Delivery O2 Flow Rate FiO2 08/17/24 13:00 98.1 116 19 102/73 (83) 93 98.1 08/17/24 11:23 Room Air* 0 21 Physical Exam Physical Examination General: Patient alert and oriented in person, place and time. Patient following commands. HEENT: Normocephalic, atraumatic, moist mucous membranes Respiratory/pulmonary: There is very minimal crackles in the left lung nichole but there is no wheezes at this time. Currently on room air Cardiovascular: Normal heart sounds S1 and S2 with no associated murmurs Abdomen: Abdomen nondistended, there is no pain to palpation in any of the abdominal quadrants, no palpable masses. Extremities: There is no peripheral edema present at the lower extremities. Skin: No rashes or pruritus, there is no sacral edema present at this time. Neurological: Intact cranial nerves with no focal neurologic deficits Labs/Diagnostic Data Labs Test 08/17/24 14:08 08/17/24 11:46 08/16/24 14:00 08/16/24 06:40 Range/Units Sodium Level 136 136-145 mmol/L Potassium Level 4.0 3.5-5.1 mmol/L Chloride Level 99 98-107 mmol/L Carbon Dioxide Level 26 20-31 mmol/L Anion Gap 11 5-15 Blood Urea Nitrogen 13 9-23 mg/dL Creatinine 0.97 0.550-1.02 mg/dL Glomerular Filtration Rate Calc 72 >90 mL/min BUN/Creatinine Ratio 13.4 10.0-20.0 Serum Glucose 364 H 74-106 mg/dL Calcium Level 10.4 8.7-10.4 mg/dL POC Glucose 369 H 70-106 mg/dl White Blood Count 10.3 4.4-10.8 10^3/uL Red Blood Count 4.77 4.0-5.20 10^6/uL Hemoglobin 14.7 12.2-16.2 g/dL Hematocrit 43.4 36.0-46.0 % Mean Corpuscular Volume 91.0 80.0-100.0 fL Mean Corpuscular Hemoglobin 30.8 28.0-32.0 pg Mean Corpuscular Hemoglobin Concent 33.8 32.0-36.0 g/dL Red Cell Distribution Width 14.5 H 11.8-14.3 % Platelet Count 329 140-450 10^3/uL Mean Platelet Volume 8.6 6.9-10.8 fL Neutrophils (%) (Auto) 37.0-80.0 % Lymphocytes (%) (Auto) 10.0-50.0 % Monocytes (%) (Auto) 0.0-12.0 % Eosinophils (%) (Auto) 0.0-7.0 % Basophils (%) (Auto) 0.0-2.0 % Neutrophils # (Auto) 1.6-8.6 10 ^3/uL Lymphocytes # (Auto) 0.4-5.4 10 ^3/uL Monocytes # (Auto) 0-1.3 10 ^3/uL Differential Total Cells Counted 100.0 100 Neutrophils % (Manual) 41 37.0-80.0 Band Neutrophils % (Manual) 0 Lymphocytes % (Manual) 21 10.0-50.0 Monocytes % (Manual) 6 0-12 Eosinophils % (Manual) 32 H 0-7 Basophils % (Manual) 0 0.0-2.0 Metamyelocytes % (manual) 0 Myelocytes % (Manual) 0 Promyelocytes % (Manual) 0 Blast Cells % (Manual) 0 Reactive Lymphocytes 0 Platelet Estimate Adequate Test 08/15/24 15:40 08/15/24 03:55 08/15/24 03:50 08/15/24 03:47 Range/Units Urine Color Light-yellow Yellow Urine Clarity Clear Clear Urine pH 6.0 5.0-9.0 Urine Specific [place] 1.015 1.001-1.035 Urine Protein Negative Negative Urine Ketones Trace Negative Urine Blood Negative Negative /uL Urine Nitrite Negative Negative Urine Bilirubin Negative Negative Urine Urobilinogen Normal Negative mg/dL Urine Leukocyte Esterase Negative Negative /uL Urine RBC 1 0 - 4 /hpf Urine Microscopic WBC 2 0-5 /HPF Urine Squamous Epithelial Cells Few <5 /hpf Urine Bacteria Few H None Seen /hpf Urine Glucose 3+ H Normal mg/dL Influenza Type A Antigen Negative Negative Influenza Type B Antigen Negative Negative SARS-CoV-2 Antigen (Rapid) Negative NEGATIVE Eosinophils # (Auto) 1.3 H 0-0.8 10 ^3/uL Basophils # (Auto) 0.1 0-0.2 10 ^3/uL Nucleated Red Blood Cells 0.0 % Erythrocyte Sedimentation Rate 20 0-20 mm/hr Total Bilirubin 0.4 0.2-1.0 mg/dL Aspartate Amino Transferase (AST) 13 <34 U/L Alanine Aminotransferase (ALT) 12 7-40 U/L Alkaline Phosphatase 74 46-116 U/L C-Reactive Protein High Sensitivity 0.62 <1.0 mg/dL Total Protein 7.2 5.7-8.2 g/dL Albumin 4.3 3.2-4.8 g/dL Hepatitis B Surface Antigen Negative Negative Hepatitis C Antibody Negative Negative HIV (1&2) Antibody Negative Negative Test 08/14/24 14:26 08/14/24 06:49 Range/Units D-Dimer, Quantitative 0.30 0.0-0.49 mg/L FEU Hemoglobin A1c 8.4 H <5.7 % A1C Lactate Dehydrogenase 222 120-246 U/L Triglycerides Level 92 < 150 mg/dL Cholesterol Level 171 < 200 mg/dL LDL Cholesterol 99 < 100 mg/dL HDL Cholesterol 55 40-59 mg/dL Assessment Assessment/plan Acute hypoxic respiratory failure likely due to 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 No pleural effusion or adenopathies -ordered sputum cultures -ordered Coccidioides antibodies -ordered Aspergillus antibodies and complete Aspergillus profile panel -ordered Strongyloides antibodies -ordered ova and parasites -stop fluconazole -continue IV antibiotics at this time. Goals of care discussed with the patient at bedside for >35min, FULL CODE Plan discussed with Dr. Rojas --------Addendum Dr. Carlos Eduardo Rojas Patient is a 48 year old woman with a past medical history of type 2 diabetes , asthma and presents with SOB on exertion and cough for last 2 1/2 months and having mild weight loss . patient went to [facility] in March and last month was in [facility] . Patients says she was having abdominal pain and vomiting in [facility] and was admitted to ICU at that time but what not told what disease she had . 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 Has minimal crackles in left lung . Chest xray is underwork . CT showed bilateral reticular lung nodular infiltrates primarily in the mid upper lung nichole peripherally. large areas of consolidation , primarily in left lung . leukocytosis of 11.3 , negative for HIV , Covid , flu and panel . patient underwent a bronchoscopy , was started on ceftriaxone , azithromycin and fluconazole . Issue of uncontrolled diabetes type 2, hypoglycemic and is tachycardic . Patient states that she has been feeling better since she got started on antibiotics here . She denies having any SOB at this time and leukocytosis appears to be stable Plan: - patient was started on steroid therapy , aspergillus , bronchopulmonary aspergillosis and other fungal infections so will test for these serologies - no indication to start any empiric treatment so would stop fluconazole and would not provide any prophylactic paracytic therapy while patient is on sterids , rather would perform these tests and have patient follow up in 2 weeks and treat any diagnosed infection at the time but overall low suspicion for infection - assess patient for rheumatologic vs organized pneumonia that would be best managed by steriods , no contraindications to steroid therapy Agree with Plan , assessment , objective , physical exam and findings listed above by Dr. PAGE Plan discussed with: Patient KI SHARP RESIDENT Aug 17, 2024 16:50 CARLOS EDUARDO ROJAS MD Aug 21, 2024 23:20
[2024-08-17] MEDS: INSULIN LANTUS (GLARGINE) 1 /0.01ml (100units/ml) SC SCH (21:40)
[2024-08-18] VITALS (21 sets, daily range): BP systolic 103–120; BP diastolic 60–72; PULSE 92–109; RESP 16–19; TEMP 97.6–97.9; O2SAT 94–100
[2024-08-18 06:03] LABS: Basophils # (auto) 0 10 ^3/uL (0-0.2); Basophils % (auto) 0.1 % (0.0-2.0); Eosinophils # (auto) 0.4 10 ^3/uL (0-0.8); Eosinophils % (auto) 2.9 % (0.0-7.0); Hematocrit 40.7 % (36.0-46.0); Hemoglobin 13.4 g/dL (12.2-16.2); Lymphocytes # (auto) 2.1 10 ^3/uL (0.4-5.4); Lymphocytes % (auto) 17.2 % (10.0-50.0); Mean Corpuscular Volume 90.8 fL (80.0-100.0); Monocytes # (auto) 0.6 10 ^3/uL (0-1.3); Monocytes % (auto) 5.1 % (0.0-12.0); Neutrophils # (auto) 9.3 10 ^3/uL (1.6-8.6); Neutrophils % (auto) 74.7 % (37.0-80.0); Platelet Count (auto) 325 10^3/uL (140-450); Red Blood Cells 4.48 10^6/uL (4.0-5.20); Red Cell Distribution Width 14.2 % (11.8-14.3); White Blood Cell 12.5 10^3/uL (4.4-10.8)
[2024-08-18 06:16] LABS: Anion Gap 10 (5-15); Carbon Dioxide 28 mmol/L (20-31); Chloride 105 mmol/L (98-107); Potassium 3.9 mmol/L (3.5-5.1); Sodium 143 mmol/L (136-145)
[2024-08-18 06:18] LABS: Calcium 10.3 mg/dL (8.7-10.4)
[2024-08-18 06:23] LABS: BUN/Creatinine Ratio 17.6 (10.0-20.0); Blood Urea Nitrogen 15 mg/dL (9-23)
[2024-08-18 06:39] LABS: Glucose 122 mg/dL (74-106)
--- NOTE | 2024-08-18 10:37 | DVHPNRES ---
Progress Note Date Seen: Aug 18, 2024 Resident Creating Document: KI SHARP RESIDENT Has the PT tested + for MRSA If YES, has PT been informed?: No Medical Necessity Reason Pt with a Central, PICC or Fol: No Subjective Review of Systems Patient seen and examined at bedside. The patient is currently asymptomatic tolerating room air and is just reporting productive cough with some sputum production. The patient denies shortness of breath, chest pain, fever/chills or any other associated symptoms. We spoke with the patient about the necessity of sending out specific labs like Aspergillus bronchopulmonary aspergillosis profile, Coccidioides antibodies, Strongyloides antibodies among other specific test to rule out any possible infectious Disease. Yesterday we stopped fluconazole, patient might benefit of continued and IV antibiotics ceftriaxone and azithromycin. Patient might also continue steroids for at least one week until final results of test are done. Spoke with lab today, and they will try to send out all labs by today. We should make sure patient leaves hospital with all labs done before discharge. ROS Constitutional: Denies weight loss, fever and chills. HEENT: Denies changes in vision and hearing. Respiratory: Reports cough with minimal sputum production but denies shortness of breath Cardiovascular: Denies chest discomfort or palpitations GI: Denies abdominal pain, nausea, vomiting and diarrhea. : Denies dysuria and urinary frequency. Musculoskeletal: Denies myalgias and joint pain Skin: Denies rash and pruritus. Neurological: Denies dizziness, headache, vision or hearing problems Objective vital signs Vital Sign Date Time Temp Pulse Resp B/P (MAP) Pulse Ox O2 Delivery O2 Flow Rate FiO2 08/18/24 09:00 97.8 99 17 111/64 (80) 95 97.8 08/18/24 06:36 Room Air 0.0 08/18/24 06:36 21 Total Intake and Output 08/17/24 08/17/24 08/18/24 15:00 23:00 07:00 Intake Total 550 ml 0 ml 950 ml Balance 550 ml 0 ml 950 ml medications Current Medications Medications Dose Ordered Sig/Lacie Route Start Time Stop Time Status Last Admin Dose Admin Ondansetron HCl 4 mg Q4HP PRN IV 08/14/24 11:15 Acetaminophen 650 mg Q6HP PRN PO 08/14/24 11:15 Nitroglycerin 0.4 mg Q5MINP PRN SL 08/14/24 11:15 Morphine Sulfate 2 mg Q30M PRN IV 08/14/24 11:15 Ceftriaxone Sodium 50 ml @ 100 mls/hr DAILY@09 IV 08/14/24 11:15 08/18/24 08:41 100 MLS/HR Azithromycin 250 ml @ 125 mls/hr DAILY IV 08/14/24 11:15 08/17/24 10:03 125 MLS/HR Ferrous Sulfate 325 mg EOD PO 08/14/24 11:29 08/16/24 08:49 325 MG Atorvastatin Calcium 40 mg HS PO 08/14/24 22:00 08/17/24 21:38 40 MG Albuterol 2.5 mg Q6H NEB 08/15/24 18:00 08/18/24 06:36 2.5 MG Ipratropium [place] 0.5 mg Q6HR NEB 08/15/24 18:00 08/18/24 06:36 0.5 MG Temazepam 15 mg HSPRN PRN PO 08/15/24 14:30 Budesonide 0.5 mg BID NEB 08/16/24 10:45 08/18/24 06:36 0.5 MG Prednisone 40 mg DAILY PO 08/17/24 10:00 08/17/24 10:03 40 MG Diagnostic Test (Pha) 1 strip IQ4HR 08/17/24 12:00 08/18/24 08:00 1 STRIP Insulin Human Regular IQ4HR SC 08/17/24 12:00 08/18/24 08:53 3 UNITS Dextrose 50 ml UD PRN IV 08/17/24 09:00 Insulin Glargine 15 units HS SC 08/17/24 22:00 08/17/24 21:40 15 UNITS Examination Physical Examination General: Patient alert and oriented in person, place and time. Patient following commands. HEENT: Normocephalic, atraumatic, moist mucous membranes Respiratory/pulmonary: There is very minimal crackles in the left lung nichole but there is no wheezes at this time. Currently on room air Cardiovascular: Normal heart sounds S1 and S2 with no associated murmurs Abdomen: Abdomen nondistended, there is no pain to palpation in any of the abdominal quadrants, no palpable masses. Extremities: There is no peripheral edema present at the lower extremities. Skin: No rashes or pruritus, there is no sacral edema present at this time. 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 No pleural effusion or adenopathies -ordered sputum cultures -ordered Coccidioides antibodies -ordered Aspergillus antibodies and complete Aspergillus profile panel -ordered Strongyloides antibodies -ordered ova and parasites -stopped fluconazole -continue IV antibiotics at this time. -[facility] before discharging the patient Goals of care discussed with the patient at bedside for >35min, FULL CODE Plan discussed with Dr. Rojas --------Addendum Dr. Carlos Eduardo Rojas Patient is a 48 year old woman with a past medical history of type 2 diabetes , asthma and presents with SOB on exertion and cough for last 2 1/2 months and having mild weight loss . patient went to [facility] in March and last month was in [facility] . Patients says she was having abdominal pain and vomiting in [facility] and was admitted to ICU at that time but what not told what disease she had . 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 Has minimal crackles in left lung . Chest xray is underwork . CT showed bilateral reticular lung nodular infiltrates primarily in the mid upper lung nichole peripherally. large areas of consolidation , primarily in left lung . leukocytosis of 11.3 , negative for HIV , Covid , flu and panel . patient underwent a bronchoscopy , was started on ceftriaxone , azithromycin and fluconazole . Issue of uncontrolled diabetes type 2, hypoglycemic and is tachycardic . Patient states that she has been feeling better since she got started on antibiotics here . She denies having any SOB at this time and leukocytosis appears to be stable 08/18: whitecount to 12.5 and patient continues to feel better with improved cough and no SOB . mild crackling in lung bases . Patient serologies are withdrawn , so far preliminary results are negative . quantifier testing is indeterminant Plan: - FU on serologies as outpatient - can complete a 5 day coarse of azithromycin and ceftriaxone for empiric atypical bacterial pneumonia treatment - recommend outpatient pulmonology follow up for treatment and diagnosis for encephalic pneumonia - follow up with infectious disease in 2 weeks to determine if theres an infectious etiology for patients pneumonia that is chronic in nature - patient was started on steroid therapy , aspergillus , bronchopulmonary aspergillosis and other fungal infections so will test for these serologies - have patient follow up in 2 weeks and treat any diagnosed infection at the time but overall low suspicion for infection - assess patient for rheumatologic vs organized pneumonia that would be best managed by steroids , no contraindications to steroid therapy Agree with Plan , assessment , objective , physical exam and findings listed above by Dr. PAGE Plan discussed with: Patient My Orders My Orders Orders - KI SHARP Procedure Category Date Status Time Respiratory Culture SAYRA 08/17/24 In Process W/ Gs 14:09 Aspergillus Antibodies LAB 08/17/24 In Process 19:16 Coccidioides Immitis LAB 08/17/24 In Process Antibody 19:16 Dietary Evaluation Review Comments: 1) CCHO 60gm + 2gm Na diet 2) Refer to CDE on DC Expected Outcomes/Goals: blood glucose under control Fu 3-5 days KI SHARP RESIDENT Aug 18, 2024 10:37 CARLOS EDUARDO ROJAS MD Aug 21, 2024 23:25
[2024-08-18 14:07] LABS: Cytoplasmic (C-ANCA) <1:20 titer (Neg:<1:20); Perinuclear (P-ANCA) <1:20 titer (Neg:<1:20)
[2024-08-18 15:07] LABS: Antimyeloperoxidase (MPO) Ab <0.2 units (0.0-0.9); Antiproteinase 3 (PR-3) Ab <0.2 units (0.0-0.9)
[2024-08-18] MEDS ORDERED: PRAZ600T3 PO (15:20)
[2024-08-18] MEDS ORDERED: PRED20TA2 PO ×2 (15:20→15:23)
[2024-08-18] MEDS ORDERED: CEFD300C2 PO (15:20)
--- NOTE | 2024-08-18 15:28 | DVHDS2 ---
Discharge Summary Date of Admission Aug 14, 2024 at 11:14 Date of Discharge: Aug 18, 2024 Admitting Diagnosis Acute hypoxic respiratory failure Labs/Diagnostic Data: Laboratory Results Test 08/18/24 11:55 08/18/24 05:06 08/16/24 14:00 08/16/24 06:40 POC Glucose 212 mg/dl (70-106) White Blood Count 12.5 10^3/uL (4.4-10.8) Red Blood Count 4.48 10^6/uL (4.0-5.20) Hemoglobin 13.4 g/dL (12.2-16.2) Hematocrit 40.7 % (36.0-46.0) Mean Corpuscular Volume 90.8 fL (80.0-100.0) Mean Corpuscular Hemoglobin 30.0 pg (28.0-32.0) Mean Corpuscular Hemoglobin Concent 33.0 g/dL (32.0-36.0) Red Cell Distribution Width 14.2 % (11.8-14.3) Platelet Count 325 10^3/uL (140-450) Mean Platelet Volume 8.3 fL (6.9-10.8) Neutrophils (%) (Auto) 74.7 % (37.0-80.0) Lymphocytes (%) (Auto) 17.2 % (10.0-50.0) Monocytes (%) (Auto) 5.1 % (0.0-12.0) Eosinophils (%) (Auto) 2.9 % (0.0-7.0) Basophils (%) (Auto) 0.1 % (0.0-2.0) Neutrophils # (Auto) 9.3 10 ^3/uL (1.6-8.6) Lymphocytes # (Auto) 2.1 10 ^3/uL (0.4-5.4) Monocytes # (Auto) 0.6 10 ^3/uL (0-1.3) Eosinophils # (Auto) 0.4 10 ^3/uL (0-0.8) Basophils # (Auto) 0 10 ^3/uL (0-0.2) Nucleated Red Blood Cells 0.0 % Sodium Level 143 mmol/L (136-145) Potassium Level 3.9 mmol/L (3.5-5.1) Chloride Level 105 mmol/L (98-107) Carbon Dioxide Level 28 mmol/L (20-31) Anion Gap 10 (5-15) Blood Urea Nitrogen 15 mg/dL (9-23) Creatinine 0.85 mg/dL (0.550-1.02) Glomerular Filtration Rate Calc 84 mL/min (>90) BUN/Creatinine Ratio 17.6 (10.0-20.0) Serum Glucose 122 mg/dL (74-106) Calcium Level 10.3 mg/dL (8.7-10.4) Cytoplasmic ANCA (c-ANCA) Antibody <1:20 titer (Neg:<1:20) Anti-Proteinase 3 (c-ANCA) <0.2 units (0.0-0.9) Atypical p-ANCA <1:20 titer (Neg:<1:20) Perinuclear ANCA (p-ANCA) Antibody <1:20 titer (Neg:<1:20) Myeloperoxidase Antibody <0.2 units (0.0-0.9) Differential Total Cells Counted 100.0 (100) Neutrophils % (Manual) 41 (37.0-80.0) Band Neutrophils % (Manual) 0 Lymphocytes % (Manual) 21 (10.0-50.0) Monocytes % (Manual) 6 (0-12) Eosinophils % (Manual) 32 (0-7) Basophils % (Manual) 0 (0.0-2.0) Metamyelocytes % (manual) 0 Myelocytes % (Manual) 0 Promyelocytes % (Manual) 0 Blast Cells % (Manual) 0 Reactive Lymphocytes 0 Platelet Estimate Adequate Test 08/15/24 15:40 08/15/24 03:55 08/15/24 03:50 08/15/24 03:47 Urine Color Light-yellow (Yellow) Urine Clarity Clear (Clear) Urine pH 6.0 (5.0-9.0) Urine Specific [place] 1.015 (1.001-1.035) Urine Protein Negative (Negative) Urine Ketones Trace (Negative) Urine Blood Negative /uL (Negative) Urine Nitrite Negative (Negative) Urine Bilirubin Negative (Negative) Urine Urobilinogen Normal mg/dL (Negative) Urine Leukocyte Esterase Negative /uL (Negative) Urine RBC 1 /hpf (0 - 4) Urine Microscopic WBC 2 /HPF (0-5) Urine Squamous Epithelial Cells Few /hpf (<5) Urine Bacteria Few /hpf (None Seen) Urine Glucose 3+ mg/dL (Normal) Influenza Type A Antigen Negative (Negative) Influenza Type B Antigen Negative (Negative) SARS-CoV-2 Antigen (Rapid) Negative (NEGATIVE) Erythrocyte Sedimentation Rate 20 mm/hr (0-20) Total Bilirubin 0.4 mg/dL (0.2-1.0) Aspartate Amino Transferase (AST) 13 U/L (<34) Alanine Aminotransferase (ALT) 12 U/L (7-40) Alkaline Phosphatase 74 U/L (46-116) C-Reactive Protein High Sensitivity 0.62 mg/dL (<1.0) Total Protein 7.2 g/dL (5.7-8.2) Albumin 4.3 g/dL (3.2-4.8) Hepatitis B Surface Antigen Negative (Negative) Hepatitis C Antibody Negative (Negative) HIV (1&2) Antibody Negative (Negative) Test 08/14/24 14:26 08/14/24 06:49 D-Dimer, Quantitative 0.30 mg/L FEU (0.0-0.49) Hemoglobin A1c 8.4 % A1C (<5.7) Lactate Dehydrogenase 222 U/L (120-246) Triglycerides Level 92 mg/dL (< 150) Cholesterol Level 171 mg/dL (< 200) LDL Cholesterol 99 mg/dL (< 100) HDL Cholesterol 55 mg/dL (40-59) Other Laboratory Tests 08/18/24 05:06 Brief Hx & Hospital Course: History of Present Illness Cristal Ramirez is a 48-year-old female with past medical history of hyperlipidemia, diabetes type 2, asthma, and who presents to the ED with shortness of breath and cough x2 months. Patient and at [facility] [place] they stated that they went to [place] 2 months ago in [facility] to visit their family also went to [facility] in the beginning of the year in March and stated that she was sick with a virus also hospitalized for 2 days in the ICU. She reports that she was never intubated but she had come down with a pretty bad illness. Patient also reports that she does not use oxygen at home however upon examination patient is currently on 3 L nasal cannula. Patient also states that she has been coughing up yellow and white sputum. Patient denies any chest pain, fever, chills, lightheadedness, weakness, dizziness, recent trauma or injury, recent ingestion of spoiled food, abdominal pain, nausea, vomiting, or diarrhea. Patient also states that she was given steroids to take and is aware that her blood sugar is high. She reports that the steroids are not helping. Course of hospitalization: Patient was started on IV antibiotic therapy, bronchodilators, IV steroids. Patient's O2 supplementation has been weaned off. She has been transitioned to prednisone 40 mg p.o. daily. Blood sugars have been controlled with both Lantus and regular insulin sliding scale. Patient states that she her symptoms have improved dramatically. 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 Patient will have multiple tests that will be sent out, with the patient to follow up with both ID and pulmonology as an outpatient. She will be continued on antibiotic therapy with cefdinir 300 mg p.o. b.i.d. x7 days as well as a tapering dose of steroids prednisone 40 mg p.o. daily x7 days, followed by 20 mg p.o. daily x7 days. She will be continue with her long-acting insulin at 30 units daily . Patient will also be provided one dose of praziquantel 600 mg p.o. x1 dose after being discharged. Physical examination General: Alert and Oriented x3. No acute distress. Well-nourished. Eyes: EOMI. Anicteric. HENT: Moist mucous membranes. Lungs: Clear to auscultation bilaterally. No accessory muscle use. Cardiovascular: Regular rate and rhythm. No murmur. No JVD. Abdomen: Soft, non-tender and non-distended. No palpable masses. Extremities: No edema. Non-tender. Skin: No rashes or lesions. Warm. Neurologic: No focal neurological deficits. CN II-XII grossly intact, but not individually tested. Psychiatric: Cooperative. Appropriate mood and affect. Total time spent with patient discussing and formulating plan of care: 35 minutes. This medical document was created using an electronic medical record system with [employer] system. Although this document has been carefully reviewed, there may still be some phonetic and typographical errors. These areas are purely typographical due to imperfections of the software programs, and do not reflect any compromise in the patient's medical care. Consults/Reason for consult Infectious disease: Atypical pneumonia Pulmonary consultation: Acute hypoxic respiratory failure Condition at Discharge: Fair Final Diagnosis/Problems List Acute hypoxic respiratory failure Secondary diagnosis: -multifocal pneumonia -diabetes mellitus -asthma Discharge Disposition: Home Discharge Instruct/Medications Diet: Consistent carbohydrate Medications: Prednisone tapering dose Cefdinir 300 mg p.o. b.i.d. x7 days Praziquantel 600 mg p.o. x1 Continue all previous home medications 36 Discharge Statement: "Patient was advised to return to the ER or call 911 if any headaches, dizziness, shortness of breath, chest pain, abdominal pain, bleeding, fevers, or worsening of medical condition. Patient was counseled about treatment plan, medications, possible side effects, patientverbalized understanding. All questions were answered to the best of my ability. This discharge took greater then 30 minutes in planning, reviewing documentation, counseling the patient, and discussing with other team members." ASSESSMENT ASSESSMENT Assessment Date of Service: Aug 18, 2024 Billing Provider: PHOEBE MELENDEZ NP Common Visit Codes: [id number]/[id number] DISCH DAY >30min PHOEBE MELENDEZ NP Aug 18, 2024 15:28
--- NOTE | 2024-08-18 18:02 | DVHPN2 ---
Progress Note - Dictate Date Seen: Aug 18, 2024 Medical Necessity Reason Pt with a Central, PICC or Fol: No vital signs Vital Sign Date Time Temp Pulse Resp B/P (MAP) Pulse Ox O2 Delivery O2 Flow Rate FiO2 08/18/24 17:00 97.8 97 16 103/66 (78) 95 97.8 08/18/24 11:36 Room Air 0.0 08/18/24 11:36 21 Total Intake and Output 08/17/24 08/17/24 08/18/24 15:00 23:00 07:00 Intake Total 550 ml 0 ml 950 ml Balance 550 ml 0 ml 950 ml medications Current Medications Medications Dose Ordered Sig/Lacie Route Start Time Stop Time Status Last Admin Dose Admin Ondansetron HCl 4 mg Q4HP PRN IV 08/14/24 11:15 Acetaminophen 650 mg Q6HP PRN PO 08/14/24 11:15 Nitroglycerin 0.4 mg Q5MINP PRN SL 08/14/24 11:15 Morphine Sulfate 2 mg Q30M PRN IV 08/14/24 11:15 Ceftriaxone Sodium 50 ml @ 100 mls/hr DAILY@09 IV 08/14/24 11:15 08/18/24 08:41 100 MLS/HR Azithromycin 250 ml @ 125 mls/hr DAILY IV 08/14/24 11:15 08/18/24 10:28 125 MLS/HR Ferrous Sulfate 325 mg EOD PO 08/14/24 11:29 08/18/24 10:32 325 MG Atorvastatin Calcium 40 mg HS PO 08/14/24 22:00 08/17/24 21:38 40 MG Albuterol 2.5 mg Q6H NEB 08/15/24 18:00 08/18/24 11:36 2.5 MG Ipratropium [place] 0.5 mg Q6HR NEB 08/15/24 18:00 08/18/24 11:36 0.5 MG Temazepam 15 mg HSPRN PRN PO 08/15/24 14:30 Budesonide 0.5 mg BID NEB 08/16/24 10:45 08/18/24 06:36 0.5 MG Prednisone 40 mg DAILY PO 08/17/24 10:00 08/18/24 10:33 40 MG Diagnostic Test (Pha) 1 strip IQ4HR 08/17/24 12:00 08/18/24 16:00 1 STRIP Insulin Human Regular IQ4HR SC 08/17/24 12:00 08/18/24 16:34 15 UNITS Dextrose 50 ml UD PRN IV 08/17/24 09:00 Insulin Glargine 25 units HS SC 08/18/24 22:00 laboratory and microbiology Laboratory Tests 08/18/24 05:06 Test 08/18/24 05:06 Range/Units Serum Glucose 122 H 74-106 mg/dL Assessment/Plan Impression Acute hypoxemic respiratory failure Pulmonary congestion Atelectasis Asthma Patient seen and examined Events vs stable on room air improving on steroids prednisone with taper upon dc will f/up in my office next week Dietary Evaluation Review Comments: 1) CCHO 60gm + 2gm Na diet 2) Refer to CDE on DC Expected Outcomes/Goals: blood glucose under control Fu 3-5 days Plan discussed with: Patient CARL TYLER MD Aug 18, 2024 18:02
[2024-08-18] MEDS: INSULIN LANTUS (GLARGINE) 1 /0.01ml (100units/ml) SC SCH (21:02)
[2024-08-19] VITALS (10 sets, daily range): BP systolic 112–124; BP diastolic 62–80; PULSE 86–95; RESP 16–20; TEMP 97.8–98.2; O2SAT 94–98
[2024-08-19 07:07] LABS: QuantiFERON-TB Gold Plus Indeterminate (Negative)
[2024-08-19] MEDS ORDERED: INSU100I51 SC (09:50)
--- NOTE | 2024-08-19 09:52 | DVHPN2 ---
Subjective Patient denies any symptoms other than cough. Reviewed: Care Plan, H&P, Labs, Medications Changes from previous H/P or p: No Changes General: Per HPI Respiratory: Cough, Shortness of breath, Sputum Objective Vitals Vital Signs Date Time Temp Pulse Resp B/P (MAP) Pulse Ox O2 Delivery O2 Flow Rate FiO2 08/19/24 05:46 88 18 97 08/19/24 05:37 Room Air* 0 21 08/19/24 05:00 98.2 112/69 (83) 98.2 Intake/Output Intake and Output 08/19/24 07:00 Intake Total 2400 ml Balance 2400 ml Intake Oral 2100 ml IV Total 300 ml # Voids 8 # Bowel Movements 1 General Appearance: Alert, Oriented X3, Cooperative, No acute distress HEENT: Atraumatic, PERRLA Neck: Carotid [place] Lungs: Other (Wheezing in right upper lung) Cardiovascular: Normal S1, Normal S2 Abdomen: Normal bowel sounds, Soft Musculoskeletal: Normal sensory function, Normal motor function Skin: Dry, Intact Psych/Mental Status: Mental status NL, Mood NL Medications Current Medications Medications Dose Ordered Sig/Lacie Route Start Time Stop Time Status Last Admin Dose Admin Ondansetron HCl 4 mg Q4HP PRN IV 08/14/24 11:15 Acetaminophen 650 mg Q6HP PRN PO 08/14/24 11:15 Nitroglycerin 0.4 mg Q5MINP PRN SL 08/14/24 11:15 Morphine Sulfate 2 mg Q30M PRN IV 08/14/24 11:15 Ceftriaxone Sodium 50 ml @ 100 mls/hr DAILY@09 IV 08/14/24 11:15 08/19/24 09:06 100 MLS/HR Azithromycin 250 ml @ 125 mls/hr DAILY IV 08/14/24 11:15 08/18/24 10:28 125 MLS/HR Ferrous Sulfate 325 mg EOD PO 08/14/24 11:29 08/18/24 10:32 325 MG Atorvastatin Calcium 40 mg HS PO 08/14/24 22:00 08/18/24 21:03 40 MG Albuterol 2.5 mg Q6H NEB 08/15/24 18:00 08/19/24 05:37 2.5 MG Ipratropium [place] 0.5 mg Q6HR NEB 08/15/24 18:00 08/19/24 05:37 0.5 MG Temazepam 15 mg HSPRN PRN PO 08/15/24 14:30 Budesonide 0.5 mg BID NEB 08/16/24 10:45 08/18/24 18:12 0.5 MG Prednisone 40 mg DAILY PO 08/17/24 10:00 08/18/24 10:33 40 MG Diagnostic Test (Pha) 1 strip IQ4HR 08/17/24 12:00 08/19/24 07:45 1 STRIP Insulin Human Regular IQ4HR SC 08/17/24 12:00 08/18/24 20:07 15 UNITS Dextrose 50 ml UD PRN IV 08/17/24 09:00 Insulin Glargine 25 units HS SC 08/18/24 22:00 08/18/24 21:02 25 UNITS Laboratory Results Laboratory Tests 08/18/24 05:06 Urinalysis Test 08/15/24 03:55 Urine Color Light-yellow (Yellow) Urine Clarity Clear (Clear) Urine pH 6.0 (5.0-9.0) Urine Specific [place] 1.015 (1.001-1.035) Urine Protein Negative (Negative) Urine Ketones Trace (Negative) Urine Blood Negative /uL (Negative) Urine Nitrite Negative (Negative) Urine Bilirubin Negative (Negative) Urine Urobilinogen Normal mg/dL (Negative) Urine Leukocyte Esterase Negative /uL (Negative) Urine RBC 1 /hpf (0 - 4) Urine Microscopic WBC 2 /HPF (0-5) Urine Squamous Epithelial Cells Few /hpf (<5) Urine Bacteria Few /hpf (None Seen) H Urine Glucose 3+ mg/dL (Normal) H Microbiology Microbiology Date/Time Source Procedure Growth Status 08/17/24 16:55 Sputum Gram Stain - Final Resulted 08/17/24 16:55 Sputum Respiratory Culture - Preliminary Resulted Labs and/or images reviewed: Labs reviewed by me, Image(s) reviewed by me Assessment/Plan Assessment/Plan Impression: -acute hypoxic respiratory failure -multifocal pneumonia -diabetes mellitus Plan: Events: Discharge held yesterday secondary to spike in blood sugars. Blood sugars now controlled. Discussion made with the patient regarding discharge medications. While patient is receiving p.o. prednisone at home, patient will be placed on a sliding scale with lispro. She is agreeable to this plan. Patient will be discharged today. -change to prednisone 40 mg p.o. daily -test for valley fever, Legionella: Pending -ID consultation, pending -regular insulin sliding scale -bronchodilators -continue antibiotic therapy with Diflucan , Rocephin, azithromycin -repeat labs and consider repeat CT scan if symptoms do not improve Total time spent with patient discussing and formulating plan of care: 35 minutes. This medical document was created using an electronic medical record system with [employer] dictation system. Although this document has been carefully reviewed, there may still be some phonetic and typographical errors. These areas are purely typographical due to imperfections of the software programs, and do not reflect any compromise in the patient's medical care. Plan discussed with: Patient, Other (RN) My Orders Orders - PHOEBE MELENDEZ NP Procedure Category Date Status Time Discharge DISCHARGE 08/18/24 Transmitted 15:11 Insulin Lantus PHA 08/18/24 In Process (Glargine) (Lantus) 22:00 Consistent DIET 08/19/24 Transmitted Carb(Ccho)Diabetes Breakfast Date of Service: Aug 19, 2024 Billing Provider: PHOEBE MELENDEZ NP Common Visit Codes: [id number] INP/OBS CARE(HIGH) PHOEBE MELENDEZ NP Aug 19, 2024 09:52
--- NOTE | 2024-08-19 11:42 | DVHPNRES ---
Progress Note Date Seen: Aug 19, 2024 Resident Creating Document: KI SHARP RESIDENT Has the PT tested + for MRSA If YES, has PT been informed?: No Medical Necessity Reason Pt with a Central, PICC or Fol: No Subjective Review of Systems Patient seen and examined at bedside. Patient was going to be discharged yesterday but blood sugars were significantly elevated so discharge was hold. ABPA profile was sent to lab cord as well as Coccidioides antibodies. Strongyloides antibodies were canceled and we will be performed as an outpatient. Patient will follow up with the Infectious Disease in one week. Patient was discharged by primary team with cefdinir tab p.o. b.i.d. for seven days, prednisone 20 mg p.o. daily and praziquantel one single dose of 600mg po. Patient has no active symptoms at this time. Denies chest pain, shortness of breath, fever/chills or any other associated symptoms at this time. ROS Constitutional: Denies weight loss, fever and chills. HEENT: Denies changes in vision and hearing. Respiratory: Denies shortness of breath and cough Cardiovascular: Denies chest discomfort or palpitations GI: Denies abdominal pain, nausea, vomiting and diarrhea. : Denies dysuria and urinary frequency. Musculoskeletal: Denies myalgias and joint pain Skin: Denies rash and pruritus. Neurological: Denies dizziness, headache, vision or hearing problems Objective vital signs Vital Sign Date Time Temp Pulse Resp B/P (MAP) Pulse Ox O2 Delivery O2 Flow Rate FiO2 08/19/24 10:00 96 Room Air* 0 21 08/19/24 09:00 97.8 93 20 124/80 (95) 97.8 Total Intake and Output 08/18/24 08/18/24 08/19/24 15:00 23:00 07:00 Intake Total 300 ml 900 ml 1200 ml Balance 300 ml 900 ml 1200 ml medications Current Medications Medications Dose Ordered Sig/Lacie Route Start Time Stop Time Status Last Admin Dose Admin Ondansetron HCl 4 mg Q4HP PRN IV 08/14/24 11:15 Acetaminophen 650 mg Q6HP PRN PO 08/14/24 11:15 Nitroglycerin 0.4 mg Q5MINP PRN SL 08/14/24 11:15 Morphine Sulfate 2 mg Q30M PRN IV 08/14/24 11:15 Ceftriaxone Sodium 50 ml @ 100 mls/hr DAILY@09 IV 08/14/24 11:15 08/19/24 09:06 100 MLS/HR Azithromycin 250 ml @ 125 mls/hr DAILY IV 08/14/24 11:15 08/18/24 10:28 125 MLS/HR Ferrous Sulfate 325 mg EOD PO 08/14/24 11:29 08/18/24 10:32 325 MG Atorvastatin Calcium 40 mg HS PO 08/14/24 22:00 08/18/24 21:03 40 MG Albuterol 2.5 mg Q6H NEB 08/15/24 18:00 08/19/24 05:37 2.5 MG Ipratropium [place] 0.5 mg Q6HR NEB 08/15/24 18:00 08/19/24 05:37 0.5 MG Temazepam 15 mg HSPRN PRN PO 08/15/24 14:30 Budesonide 0.5 mg BID NEB 08/16/24 10:45 08/18/24 18:12 0.5 MG Prednisone 40 mg DAILY PO 08/17/24 10:00 08/19/24 10:50 40 MG Diagnostic Test (Pha) 1 strip IQ4HR 08/17/24 12:00 08/19/24 11:33 1 STRIP Insulin Human Regular IQ4HR SC 08/17/24 12:00 08/19/24 11:34 2 UNITS Dextrose 50 ml UD PRN IV 08/17/24 09:00 Insulin Glargine 25 units HS SC 08/18/24 22:00 08/18/24 21:02 25 UNITS Examination Physical Examination General: Patient alert and oriented in person, place and time. Patient following commands. HEENT: Normocephalic, atraumatic, moist mucous membranes Respiratory/pulmonary: There is very minimal crackles in the left lung nichole but there is no wheezes at this time. Currently on room air Cardiovascular: Normal heart sounds S1 and S2 with no associated murmurs Abdomen: Abdomen nondistended, there is no pain to palpation in any of the abdominal quadrants, no palpable masses. Extremities: There is no peripheral edema present at the lower extremities. Skin: No rashes or pruritus, there is no sacral edema present at this time. 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 No pleural effusion or adenopathies -ordered sputum cultures -ordered Coccidioides antibodies -ordered Aspergillus antibodies and complete Aspergillus profile panel -ordered Strongyloides antibodies -ordered ova and parasites -Aspergillus profile and Coccidioides antibodies were sent to [facility]. Patient will follow up with Infectious Disease in one week -Strongyloides antibodies were consult, we will be ordered as an outpatient. -patient will be discharged by primary team Goals of care discussed with the patient at bedside for >35min, FULL CODE Plan discussed with Dr. Rojas - -------Addendum Dr. Carlos Eduardo Rojas Patient is a 48 year old woman with a past medical history of type 2 diabetes , asthma and presents with SOB on exertion and cough for last 2 1/2 months and having mild weight loss . patient went to [facility] in March and last month was in [facility] . Patients says she was having abdominal pain and vomiting in [facility] and was admitted to ICU at that time but what not told what disease she had . 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 Has minimal crackles in left lung . Chest xray is underwork . CT showed bilateral reticular lung nodular infiltrates primarily in the mid upper lung nichole peripherally. large areas of consolidation , primarily in left lung . leukocytosis of 11.3 , negative for HIV , Covid , flu and panel . patient underwent a bronchoscopy , was started on ceftriaxone , azithromycin and fluconazole . Issue of uncontrolled diabetes type 2, hypoglycemic and is tachycardic . Patient states that she has been feeling better since she got started on antibiotics here . She denies having any SOB at this time and leukocytosis appears to be stable 08/18: whitecount to 12.5 and patient continues to feel better with improved cough and no SOB . mild crackling in lung bases . Patient serologies are withdrawn , so far preliminary results are negative . quantifier testing is indeterminant 08/19: given empiric dose of praziquantel , no sings of rash and remains asymptomatic . HIV testing is negative . having ongoing pain in left leg and difficultly walking . patient agreeable to undergo physical therapy and keep off leg wound by working with a team at a correction facility . woundvac was placed Plan: - recommend FU with surgery as outpatient to determine ongoing need for woundvac as well as adjustment to care - would not send patient home on any antiparasitic - fu on serology and bronchoscopy testing as outpatient and preform stongulities in outpatient although w as ordered for inpatient - FU on serologies as outpatient - can complete a 5 day coarse of azithromycin and ceftriaxone for empiric atypical bacterial pneumonia treatment - recommend outpatient pulmonology follow up for treatment and diagnosis for encephalic pneumonia - follow up with infectious disease in 2 weeks to determine if theres an infectious etiology for patients pneumonia that is chronic in nature - patient was started on steroid therapy , aspergillus , bronchopulmonary aspergillosis and other fungal infections so will test for these serologies - have patient follow up in 2 weeks and treat any diagnosed infection at the time but overall low suspicion for infection - assess patient for rheumatologic vs organized pneumonia that would be best managed by steroids , no contraindications to steroid therapy Agree with Plan , assessment , objective , physical exam and findings listed above by Dr. PAGE Plan discussed with: Patient Dietary Evaluation Review Comments: 1) CCHO 60gm + 2gm Na diet 2) Refer to CDE on DC Expected Outcomes/Goals: blood glucose under control Fu 3-5 days KI SHARP RESIDENT Aug 19, 2024 11:42 CARLOS EDUARDO ROJAS MD Aug 21, 2024 23:31
--- NOTE | 2024-08-19 13:59 | DVHPN2 ---
Progress Note - Dictate Date Seen: Aug 19, 2024 Has the PT tested + for MRSA If YES, has PT been informed?: No Medical Necessity Reason Pt with a Central, PICC or Fol: No vital signs Vital Sign Date Time Temp Pulse Resp B/P (MAP) Pulse Ox O2 Delivery O2 Flow Rate FiO2 08/19/24 12:18 92 18 98 08/19/24 12:10 Room Air* 0 21 08/19/24 11:15 97.8 08/19/24 09:00 124/80 (95) Total Intake and Output 08/18/24 08/18/24 08/19/24 15:00 23:00 07:00 Intake Total 300 ml 900 ml 1200 ml Balance 300 ml 900 ml 1200 ml laboratory and microbiology Laboratory Tests 08/18/24 05:06 Test 08/18/24 05:06 Range/Units Serum Glucose 122 H 74-106 mg/dL Assessment/Plan Impression Acute hypoxemic respiratory failure Pulmonary congestion Atelectasis Asthma Patient seen and examined Events vs stable on room air improving no distress prednisone with taper upon dc will f/up in my office next week okay to discharge from pulmonary standpoint Dietary Evaluation Review Comments: 1) CCHO 60gm + 2gm Na diet 2) Refer to CDE on DC Expected Outcomes/Goals: blood glucose under control Fu 3-5 days Plan discussed with: Patient CARL TYLER MD Aug 19, 2024 13:59
[2024-08-22 07:06] LABS: Aspergillus flavus Negative (Neg:<1:1); Aspergillus fumigatus Negative (Neg:<1:1); Aspergillus niger Negative (Neg:<1:1)
[2024-08-22 17:07] LABS: Coccidioides CF Antibody <1:2 (<1:2)
== END 2024-08-19 12:21 | disposition home or self-care (01) | DRG 196 ==
LOC: ER 05:52 → OVERFLOW 11:14 → WEST WING 08-15 17:35 → CENTRAL 08-17 10:10
PROVIDERS: ADMIT Nurse Practitioner Acute Care; ATTEND Nurse Practitioner Acute Care
DX: J82.82 Acute eosinophilic pneumonia (principal); J96.01 Acute respiratory failure with hypoxia; J98.11 Atelectasis; B44.1 Other pulmonary aspergillosis; B38.2 Pulmonary coccidioidomycosis, unspecified; J82.83 Eosinophilic asthma; E78.5 Hyperlipidemia, unspecified; Z20.822 Contact with and (suspected) exposure to COVID-19; I10 Essential (primary) hypertension; E11.65 Type 2 diabetes mellitus with hyperglycemia; Z98.891 History of uterine scar from previous surgery; Z91.013 Allergy to seafood; Z82.5 Family history of asthma and other chronic lower respiratory diseases; Z79.84 Long term (current) use of oral hypoglycemic drugs; Z79.4 Long term (current) use of insulin
CPT/HCPCS: 36415; 71045; 71250; 80048; 80053; 80061; 81001; 82962; 83036; 83520; 83615; 85007; 85025; 85027; 85379; 85652; 86141; 86256; 86606; 86635; 86703; 86803; 87070; 87205; 87278; 87340; 87426; 87804; 94640; 94644; 96365; 96375; 99291; G0378; J1450; J1815